=== PATIENT | female | born 1940 | race Caucasian/White ===

== ENCOUNTER → 2016-07-01 | Outpatient (CLI) | payer BC ==
[~2016-07-01] MED LIST: ADVIN25050 INH; ALBUAER2 INH; ANT25 PO; ASPI81TA25 PO; ASTNS; ATOR10TA82 PO; CRAN500C2 PO; ISOS30TA3 PO; LORA10CA2 PO; NRN600 PO; PRLSR20 PO; SERT-234 PO; TELM40TA11 PO; TOLT4CAP PO; VERA240T20 PO
== END | disposition home or self-care (01) ==
LOC: C.LAB 13:01
PROVIDERS: ATTEND Nurse Practitioner Family
DX: N20.0 Calculus of kidney (principal); R32 Unspecified urinary incontinence

== ENCOUNTER → 2016-08-04 | Outpatient (CLI) | payer BC ==
[2016-08-04 16:05] LABS: CALCIUM 9.3 mg/dl (8.5-10.1)
[2016-08-04 16:12] LABS: ALT/SGPT 15 U/L (12-78); BLOOD UREA NITROGEN 12 mg/dl (7-18); BUN/CREATININE RATIO 14.1 (10-20); CARBON DIOXIDE 25 mmol/L (21-32); CHLORIDE 107 mmol/L (98-107); CHOLESTEROL 219 mg/dl (0-200); CREATININE 0.86 mg/dl (0.60-1.20); GLUCOSE 88 mg/dl (70-99); SODIUM 141 mmol/L (136-145); TRIGLYCERIDES 202 mg/dl (0-150); VERY LOW DENSITY LIPOPROT CALC 40 mg/dl
[2016-08-04 16:22] LABS: ALKALINE PHOSPHATASE 86 U/L (45-117); AST/SGOT 15 U/L (15-37); CHOLESTEROL/HDL RATIO 4.1; HDL CHOLESTEROL 54 mg/dl; LDL CHOLESTEROL CALCULATED 125 mg/dl
== END | disposition home or self-care (01) ==
LOC: C.LAB1850 14:20
PROVIDERS: ATTEND Internal Medicine
DX: E78.00 Pure hypercholesterolemia, unspecified (principal); E53.8 Deficiency of other specified B group vitamins; E55.9 Vitamin D deficiency, unspecified; R53.83 Other fatigue

== ENCOUNTER → 2016-11-08 | Outpatient (CLI) | payer BC ==
[~2016-11-08] MED LIST changes: -ATOR10TA82 PO; +ATOR10TA88 PO
--- NOTE | 2016-11-08 15:51 | DIAGNOSTIC IMAGING REPORT ---
KUB CLINICAL HISTORY: R39.15 Urinary [id number] History of urinary tract infection pain. Infection. COMPARISON STUDY: 12/23/2015 FINDINGS: The soft tissues, psoas shadows, renal outlines and intestinal gas pattern appear normal. There is no evidence for bowel obstruction. No abnormal abdominal calcifications are seen. No evidence for nephrocalcinosis. IMPRESSION: Normal study. No evidence for nephrocalcinosis. The above report was generated using voice recognition software. It may contain grammatical, syntax or spelling errors. Electronically signed by: Chivo Wu M.D. 11/08/2016 3:50 PM Dictated Date/Time: 11/08/2016 3:49 PM
== END | disposition home or self-care (01) ==
LOC: C.RAD 15:13
PROVIDERS: ATTEND Urology
DX: R39.15 Urgency of urination (principal); Z87.440 Personal history of urinary (tract) infections

== ENCOUNTER → 2017-02-28 | Outpatient (CLI) | payer BC ==
[~2017-02-28] MED LIST changes: +ATOR10TA82 PO; -ATOR10TA88 PO
[2017-02-28 13:02] LABS: ALT/SGPT 16 U/L (12-78); AST/SGOT 9 U/L (15-37); BLOOD UREA NITROGEN 11 mg/dl (7-18); BUN/CREATININE RATIO 10.4 (10-20); CALCIUM 9.1 mg/dl (8.5-10.1); CARBON DIOXIDE 26 mmol/L (21-32); CHLORIDE 105 mmol/L (98-107); CREATININE 1.09 mg/dl (0.60-1.20); GLUCOSE 100 mg/dl (70-99); POTASSIUM 3.9 mmol/L (3.5-5.1); SODIUM 140 mmol/L (136-145)
[2017-02-28 13:04] LABS: ALB/GLOB RATIO 1.2 (0.9-2); ALKALINE PHOSPHATASE 90 U/L (45-117)
== END | disposition home or self-care (01) ==
LOC: C.LAB1850 11:01
PROVIDERS: ATTEND Internal Medicine
DX: E53.8 Deficiency of other specified B group vitamins (principal); E55.9 Vitamin D deficiency, unspecified; I10 Essential (primary) hypertension

== ENCOUNTER → 2017-08-09 | Outpatient (CLI) | payer BC ==
--- NOTE | 2017-08-09 15:52 | DIAGNOSTIC IMAGING REPORT ---
RIGHT SHOULDER 3 VIEWS HISTORY: Right shoulder pain. COMPARISON: None. FINDINGS: There is no fracture or dislocation. Soft tissues are unremarkable. The bones are osteopenic. The right clavicle appears intact. IMPRESSION: No fracture or dislocation within the right shoulder. Electronically signed by: Eliezer Sinha M.D. 08/09/2017 3:50 PM Dictated Date/Time: 08/09/2017 3:49 PM
--- NOTE | 2017-08-09 15:53 | DIAGNOSTIC IMAGING REPORT ---
R ELBOW MIN 3 VIEWS ROUTINE CLINICAL HISTORY: 77 years-old Female presenting with Joint pain, elbow right, fall last night, now with right shoulder and elbow pain. TECHNIQUE: Frontal, oblique, and lateral views of the right elbow were obtained. COMPARISON: None. FINDINGS: Osteopenia suspected. This limits evaluation for nondisplaced fracture Elbow joint congruent. Minimal osteophytosis noted at the medial aspect of the coronoid process. The joint spaces preserved. No acute fracture or malalignment. No advanced degenerative change. No evidence of elbow joint effusion. IMPRESSION: 1. No acute osseous injury. 2. Minimal degenerative changes. Electronically signed by: Julio Suárez M.D. 08/09/2017 3:52 PM Dictated Date/Time: 08/09/2017 3:50 PM
== END | disposition home or self-care (01) ==
LOC: C.RAD 15:10
PROVIDERS: ATTEND Internal Medicine
DX: M25.511 Pain in right shoulder (principal); M25.521 Pain in right elbow

== ENCOUNTER → 2017-10-26 | Outpatient (CLI) | payer BC ==
[2017-10-26 13:31] LABS: BASO % 0.2 %; BASO ABS # 0.01 K/uL (0-0.2); EOS % 1.8 %; HEMATOCRIT 44.1 % (37-47); HEMOGLOBIN 14.5 g/dL (12.0-16.0); LYMPH % 28.6 %; LYMPH ABS # 1.59 K/uL (1.2-3.4); MEAN CELL VOLUME 91.9 fL (80-100); MEAN CORPUSCULAR HEMOGLOBIN 30.2 pg (25-34); MEAN CORPUSCULAR HGB CONC 32.9 g/dl (32-36); MEAN PLATELET VOLUME 10.4 fL (7.4-10.4); MONO % 7.4 %; MONO ABS # 0.41 K/uL (0.11-0.59); NEUT ABS # 3.45 K/uL (1.4-6.5); PLATELET COUNT 188 K/uL (130-400); RED CELL DISTRIBUTION WIDTH CV 13.4 % (11.5-14.5); RED CELL DISTRIBUTION WIDTH SD 44.8 fL (36.4-46.3); WHITE BLOOD COUNT 5.56 K/uL (4.8-10.8)
[2017-10-26 13:43] LABS: ALBUMIN 3.7 gm/dl (3.4-5.0); ALKALINE PHOSPHATASE 83 U/L (45-117); ALT/SGPT 14 U/L (12-78); AST/SGOT 10 U/L (15-37); BLOOD UREA NITROGEN 15 mg/dl (7-18); CALCIUM 8.9 mg/dl (8.5-10.1); CARBON DIOXIDE 27 mmol/L (21-32); CHOLESTEROL 170 mg/dl (0-200); CREATININE 0.97 mg/dl (0.60-1.20); GLUCOSE 103 mg/dl (70-99); LDL CHOLESTEROL CALCULATED 82 mg/dl; POTASSIUM 3.9 mmol/L (3.5-5.1); SODIUM 141 mmol/L (136-145); TOTAL PROTEIN 7.3 gm/dl (6.4-8.2)
== END | disposition home or self-care (01) ==
LOC: C.LAB1850 11:36
PROVIDERS: ATTEND Internal Medicine Cardiovascular Disease
DX: R73.01 Impaired fasting glucose (principal); I10 Essential (primary) hypertension; E78.00 Pure hypercholesterolemia, unspecified; I69.959 Hemiplegia and hemiparesis following unspecified cerebrovascular disease affecting unspecified side; I25.10 Atherosclerotic heart disease of native coronary artery without angina pectoris

== ENCOUNTER 2023-05-21 15:19 | Inpatient (IN) ==
--- NOTE | 2023-05-21 15:51 | Emergency Department Note ---
History of Present Illness General Chief complaint: Fall Stated complaint: FALL, HIT HEAD, RIGHT ANKLE INJURY Time Seen by Provider: 05/21/23 15:45 History of Present Illness Maximum Pain Intensity: 8 NAME: ESPERANZA NICOLE AGE: 82 SEX: F : 1940 ARRIVES VIA: Walk-In INFORMANT: Patient ED PROVIDER(S): PAOLO Ramirez, Janae Romero MD The patient is an 82-year-old female who arrives to the emergency department for evaluation of right ankle pain, headache, and right-sided cervical paraspinal muscle pain after a mechanical fall while she was attempting to come out of the bathroom. She reports she was reaching for her walker at the time when she fell down to the ground hitting her head landing on her right knee and twisting her right ankle. The patient does have a history of a previous CVA with a right- sided deficit. She reports no loss of consciousness, no use of anticoagulants, however she is reporting a headache. She denies any worsening of her current vision, dizziness, chest pain, shortness of breath, or other concerning neurological symptoms. Home Medications Medication Instructions Recorded Confirmed Type aspirin 81 mg tablet 81 mg PO DAILY 11/21/18 05/21/23 History coenzyme Q10 100 mg capsule 100 mg PO DAILY 11/21/18 05/21/23 History cranberry extract 500 mg capsule 500 mg PO DAILY 11/21/18 05/21/23 History (Cranberry Concentrate) cyanocobalamin (vitamin B-12) 1,000 mcg PO DAILY 11/21/18 05/21/23 History 1,000 mcg tablet docusate sodium 100 mg capsule 100 mg PO DAILY 11/21/18 05/21/23 History loratadine 10 mg tablet 10 mg PO DAILY 11/21/18 05/21/23 History nitroglycerin 0.4 mg sublingual 0.4 mg sublingual Q5M PRN Chest 11/21/18 05/21/23 History tablet Pain #15 tabs sennosides 8.6 mg tablet 8.6 mg PO DAILY PRN Constipation 11/21/18 05/21/23 History azelastine 137 mcg (0.1 %) nasal 2 spray intranasal BID 10/26/21 05/21/23 History spray aerosol fluticasone 250 mcg-salmeterol 50 1 inh inhalation BID PRN .asthma 11/05/21 05/21/23 History mcg/dose blistr powdr for inhalation cholecalciferol (vitamin D3) 25 1,000 unit PO DAILY #90 caps 04/13/22 05/21/23 Rx mcg (1,000 unit) capsule albuterol sulfate 90 mcg/actuation 2 puff inhalation Q4H PRN 05/30/22 05/21/23 Rx aerosol inhaler Shortness Of Breath Or Wheezing #3 Inhalers omeprazole 40 mg capsule,delayed 40 mg PO DAILY #90 caps 09/27/22 05/21/23 Rx release famotidine 40 mg tablet 40 mg PO DAILY #90 tabs 01/16/23 05/21/23 Rx memantine 10 mg tablet 10 mg PO BID #180 tabs 01/17/23 05/21/23 Rx rimegepant 75 mg disintegrating 75 mg PO Q OTHER DAY migraine 04/21/23 05/21/23 Rx tablet (Nurtec ODT) headache #16 tabs atorvastatin 10 mg tablet 10 mg PO .COMPLEX #45 tabs 05/17/23 05/21/23 Rx oxybutynin chloride 5 mg tablet 5 mg PO DAILY #90 tabs 05/17/23 05/21/23 Rx tolterodine 4 mg capsule,extended 4 mg PO DAILY #90 caps 05/17/23 05/21/23 Rx release 24 hr isosorbide mononitrate 30 mg 30 mg PO DAILY 05/21/23 05/21/23 History tablet,extended release 24 hr venlafaxine 75 mg capsule,extended 150 mg PO HS 05/21/23 05/21/23 History release 24 hr verapamil 240 mg tablet,extended 240 mg PO HS 05/21/23 05/21/23 History release Allergies Allergy/AdvReac Type Severity Reaction Status Date / Time nitrofurantoin Allergy Mild RASH Verified 05/21/23 22:23 acetaminophen [From Vicodin] Allergy shortness Verified 05/21/23 22:23 of breath fesoterodine [From Toviaz] Allergy difficult Verified 05/21/23 22:23 swallowing; dry mouth; loss of appetite hydrocodone [From Vicodin] Allergy shortness Verified 05/21/23 22:23 of breath mirabegron [From Myrbetriq] Allergy Hypertensio Verified 05/21/23 22:23 n NSAIDS (Non-Steroidal Allergy Unknown Verified 05/21/23 22:23 Anti-Inflamma onabotulinumtoxinA Allergy Unconscious Verified 05/21/23 22:23 [From Botox] simvastatin [From Zocor] Allergy Muscle Pain Verified 05/21/23 22:23 topiramate [From Topamax] Allergy dyspepsia Verified 05/21/23 22:23 erenumab-aooe AdvReac Intermediate CONSTIPATIO Verified 05/21/23 22:23 [From Aimovig Autoinjector] N meperidine AdvReac Mild NAUSEA Verified 05/17/23 13:34 Past Med/Surg History Medical History Left flank pain Gross hematuria Contracture, right ankle Right ankle gives out Migraine with aura and without status migrainosus, not intractable Compression fracture of L2 Dependent edema Head trauma Nephrolithiasis Osteopenia Recurrent UTI (urinary tract infection) Right shoulder pain Antiplatelet or antithrombotic long-term use Cough Arteriosclerotic heart disease (ASHD) Depression GERD without esophagitis Lumbar radiculopathy Other insomnia Vitamin D deficiency CVA, old, hemiparesis Asthma Dyslipidemia Sepsis Nonspecific ST-T wave electrocardiographic changes (02/18/13) Hypophosphatemia Hypomagnesemia Hypokalemia Surgical History S/P cholecystectomy Family History Family/Other Diabetes Heart disease Hypertension Sister Diabetes Brother Diabetes Myocardial infarction Uncle Colorectal cancer Denies family history of Ovarian cancer Prostate cancer Breast cancer Social History Smoking Status: Former smoker Second Hand Exposure: Yes; Do You Dip or Chew Tobacco: No; Hx Alcohol Use: No Hx Substance Use: No Preferred Language: Kyrgyz Communication Ability: Effective Visual Impairment: No Limitations Hearing Ability: Use of Hearing Aid Retort Pre Cooker Required: No Beliefs That Will Affect Care: None marital status: Current Living Situation: Spouse Current Living Situation Comment: with , George current occupational status: disabled Feels Safe at Home: Yes Safety Concerns: Feels Safe At This Time Childhood Exposure to Second-Hand Smoke: Yes Dental Care, Regularly: No Physical Activity Frequency: Does not Exercise Seatbelt Use: always Sunscreen Use: No Assistive Devices: Denture - Upper, Denture - Lower, Glasses, Hearing Aid - Bilateral, Scooter/Electric Scooter, Walker and Wheelchair Assistive Devices Comment: glasses at bedside, all other assistive devices at home Physical Exam Vital Signs Vital Signs - 24 hr 05/21/23 15:31 05/21/23 18:38 Temperature 36.4 C L Temperature Source Temporal Artery Scan Pulse Rate 73 Pulse Rate [Finger] 59 L Respiratory Rate 20 18 Respiratory Effort / Characteristics Non-Labored Respiratory Depth Normal Blood Pressure 142/79 H Blood Pressure [Left Arm] 187/71 H Blood Pressure Mean 100 Blood Pressure Mean [Left Arm] 109 Pulse Oximetry 96 95 Oxygen Delivery Method Room Air Room Air Sepsis Recent Fever Within 48 Hours No Sepsis New/Unexplained Change in Mental Status No Sepsis Action Taken by Nursing No Action Required VITALS: Vitals are noted on the nurse's note and reviewed by myself. Vital signs stable. GENERAL: 82-year-old female, in no acute distress, nondiaphoretic. SKIN: The skin was without rashes, erythema, edema, or bruising. HEAD: Normocephalic atraumatic. EARS: External auditory canals clear, tympanic membranes pearly evangelista without erythema or effusion bilaterally. EYES: Pupils equal round and reactive to light and accommodation. Conjunctivae without injection, sclerae without icterus. Extraocular movements intact. NECK: Supple without nuchal rigidity. No lymphadenopathy. No thyromegaly. Cervical paraspinal muscle tenderness on the right. No JVD. HEART: Regular rate and rhythm without murmurs gallops or rubs. LUNGS: Clear to auscultation bilaterally without wheezes, rales or rhonchi. No retractions or accessory muscle use. ABDOMEN: Positive bowel sounds x 4. Soft, nontender, without masses or organomegaly. Vogel sign negative. No guarding or rebound tenderness. MUSCULOSKELETAL: Patient uses a walker at baseline, atrophy to the right lower extremity due to left-sided CVA. Strength 3/5 right leg, limited range of motion. NEURO: Patient was alert and oriented to person place and time. Course Administered Medications Aspirin (Aspirin 81 Mg Ectab) 81 mg PO DAILY SUBHA Stop: 06/21/23 08:59 Last Admin: 05/22/23 07:49 Dose: 81 mg Documented By: ES Atorvastatin Calcium (Atorvastatin 10 Mg Tab) 10 mg PO Q48H SUBHA Stop: 06/21/23 08:59 Last Admin: 05/22/23 07:50 Dose: 10 mg Documented By: ES Fluticasone/Vilanterol (Fluticasone/Vilanterol 200/25mcg 14 Puffs/Inhaler) 1 puffs INH DAILY SUBHA Stop: 06/21/23 08:59 Last Admin: 05/22/23 07:49 Dose: 1 puffs Documented By: ES Isosorbide Mononitrate (Isosorbide [place]orte Extended Rel 30 Mg Tabcr) 30 mg PO QAM SUBHA Stop: 06/21/23 08:59 Last Admin: 05/22/23 07:49 Dose: 30 mg Documented By: JER Memantine (Memantine Hcl 10 Mg Tab) 10 mg PO BID SUBHA Stop: 06/20/23 22:28 Last Admin: 05/22/23 07:50 Dose: 10 mg Documented By: Admin: 05/22/23 00:22 Dose: 10 mg Documented By: GEO Oxybutynin Chloride (Oxybutynin Chloride 5 Mg Tab) 5 mg PO DAILY SUBHA Stop: 06/21/23 08:59 Last Admin: 05/22/23 07:50 Dose: 5 mg Documented By: JER Pantoprazole Sodium (Pantoprazole 40 Mg Tab) 40 mg PO DAILY SUBHA Stop: 06/21/23 08:59 Last Admin: 05/22/23 07:50 Dose: 40 mg Documented By: JER Venlafaxine HCl (Venlafaxine Hcl Xr 150 Mg Capxr) 150 mg PO DAILY SUBHA Stop: 06/21/23 08:59 Last Admin: 05/22/23 07:49 Dose: 150 mg Documented By: JER Discontinued Medications Amlodipine Besylate (Amlodipine Besylate 5 Mg Tab) 5 mg PO NOW STA Stop: 05/21/23 22:30 Last Admin: 05/21/23 23:32 Dose: 5 mg Documented By: WALTER Clonidine HCl (Clonidine Hcl 0.1 Mg Tab) 0.1 mg PO NOW ONE Stop: 05/22/23 02:55 Last Admin: 05/22/23 03:02 Dose: 0.1 mg Documented By: GEO Hydralazine HCl (Hydralazine Hcl 20 Mg/Ml Vial) 2.5 mg IV NOW ONE Stop: 05/21/23 21:58 Last Admin: 05/21/23 22:13 Dose: 2.5 mg Documented By: HUNTER Hydralazine HCl (Hydralazine Hcl 20 Mg/Ml Vial) 2.5 mg IV NOW STA Stop: 05/21/23 22:08 Last Admin: 05/21/23 22:16 Dose: 2.5 mg Documented By: HUNTER Hydralazine HCl (Hydralazine Hcl 20 Mg/Ml Vial) 5 mg IV NOW ONE Stop: 05/21/23 22:36 Last Increment: 05/21/23 22:54 Dose: 0.25 mg Documented By: HUNTER Hydralazine HCl (Hydralazine Hcl 20 Mg/Ml Vial) 5 mg IV NOW ONE Stop: 05/22/23 01:12 Last Admin: 05/22/23 01:22 Dose: Not Given Documented By: GEO Hydralazine HCl (Hydralazine Hcl 20 Mg/Ml Vial) 10 mg IV NOW ONE Stop: 05/22/23 01:12 Last Admin: 05/22/23 01:24 Dose: 10 mg Documented By: GEO Acetaminophen (Ofirmev) 1,000 mg in 100 mls @ 400 mls/hr IV NOW STA Stop: 05/22/23 01:26 Last Infusion: 05/22/23 02:17 Dose: Infused Documented By: Admin: 05/22/23 01:24 Dose: 400 mls/hr Documented By: GEO Isosorbide Mononitrate (Isosorbide [place] Extended Rel 30 Mg Tabcr) 30 mg PO NOW ONE Stop: 05/22/23 01:49 Last Admin: 05/22/23 02:16 Dose: 30 mg Documented By: GEO Miscellaneous (Patient's Height &/Or Weight Needed) 1 each N/A NOW ONE Stop: 05/22/23 01:31 Last Admin: 05/22/23 01:36 Dose: 1 each Documented By: GEO Medical Decision Making Differential Diagnosis Concussion, contusion, fracture, subdural hematoma, epidural hematoma, intraparenchymal hemorrhage, as well as other pathologies. Medical Records Attestation: I reviewed the patient's medical records. Home Medications Current Medication List: was personally reviewed by me Laboratory Data 05/22/23 04:03 05/22/23 04:03 Lab Results 05/21/23 Range/Units 19:00 WBC 7.10 (4.8-10.8) K/ul RBC 4.43 (4.20-5.40) M/uL Hgb 12.9 (12.0-16.0) g/dl Hct 41.0 (37.0-47.0) % MCV 92.6 (80.0-100.0) fL MCH 29.1 (25.0-34.0) pg MCHC 31.5 L (32.0-36.0) g/dL RDW Std Deviation 47.4 H (36.4-46.3) fL RDW Coeff of Layton 13.8 (11.5-14.5) % Plt Count 193 (130-400) K/uL MPV 9.4 (9.4-12.4) fL Immature Gran % (Auto) 0.3 % Neut % (Auto) 73.1 % Lymph % (Auto) 17.0 % Laporte % (Auto) 8.2 % Eos % (Auto) 1.1 % Baso % (Auto) 0.3 % Neut # (Auto) 5.19 (1.40-6.50) K/uL Lymph # (Auto) 1.21 (1.20-3.40) K/uL Laporte # (Auto) 0.58 (0.11-0.59) K/uL Eos # (Auto) 0.08 (0.00-0.50) K/uL Baso # (Auto) 0.02 (0.00-0.20) K/uL Immature Gran # (Auto) 0.02 (0.01-0.20) K/uL Sodium 141 (136-145) mmol/L Potassium 4.9 (3.5-5.1) mmol/L Chloride 107 (98-107) mmol/L Carbon Dioxide 29 (21-32) mmol/L Anion Gap 5 (3-11) BUN 19 (6-23) mg/dl Creatinine 1.10 (0.6-1.2) mg/dl Est Cr Clr Drug Dosing Not Reportable Est GFR ( Amer) 54.9 ml/min Est GFR (Non-Af Amer) 47.4 ml/min BUN/Creatinine Ratio 17.3 (10-20) Glucose 102 H (70-99(Fasting)) mg/dl Calcium 9.2 (8.6-10.3) mg/dl Total Bilirubin 0.5 (0.2-1.0) mg/dl AST 15 (13-39) U/L ALT 6 L (7-52) U/L Alkaline Phosphatase 70 (34-104) U/L Total Protein 6.9 (6.0-8.3) gm/dl Albumin 3.8 (3.4-5.0) gm/dl Globulin 3.1 (2.5-4.0) gm/dl Albumin/Globulin Ratio 1.2 (0.9-2) Imaging Data Attestation: I personally reviewed and interpreted this imaging study as follows: My Impression: Initial x-ray interpretation per myself shows no acute injury, fracture, or subluxation. Will await formal radiology report. Radiologist's Impression: Ankle X-Ray 05/21/23 16:15 XR ankle RT min 3V routine CLINICAL HISTORY: fall COMPARISON: Right ankle radiographs July 10, 2020. FINDINGS: There is no fracture within the right ankle. Posterior calcaneal spurring is incidentally noted. Small bony excrescence arising from the medial metaphysis of the right fibula is unchanged since prior exam. This is benign. Talar dome is intact. IMPRESSION: No fracture or dislocation within the right ankle. ACT 112: Negative or not required by law. Electronically signed by: Wyatt Jiang M.D. 05/21/2023 4:[address] 05/21/23 16:15 CT OF THE CERVICAL SPINE WITHOUT CONTRAST CLINICAL HISTORY: fall COMPARISON STUDY: Cervical spine CT October 26, 2021. TECHNIQUE: Helical axial images of the cervical spine were obtained without IV contrast. Sagittal and coronal reconstructions were viewed. Automated exposure control was utilized for the study. A dose lowering technique was utilized adhering to the principles of ALARA. FINDINGS: Alignment of the cervical spine is anatomic. Vertebral body heights are maintained. No acute cervical spine fracture or subluxation is present. There is no prevertebral edema. Facet joints are intact. IMPRESSION: No acute cervical spine fracture or subluxation. ACT 112: Negative or not required by law. Electronically signed by: Wyatt Jiang M.D. 05/21/2023 5:[address] 05/21/23 16:15 CT OF THE HEAD WITHOUT CONTRAST CLINICAL HISTORY: fall COMPARISON STUDY: Head CT October 26, 2021. MRI of the brain June 03, 2022. CT DOSE: 1031.76 mGy.cm TECHNIQUE: Helical axial images of the head were obtained without IV contrast. Automated exposure control was utilized for the study. A dose lowering technique was utilized adhering to the principles of ALARA. FINDINGS: No acute intracranial hemorrhage, midline shift or mass effect is present. The ventricular system is stable. Ventricular dilatation is unchanged. Left frontal lobe encephalomalacia is unchanged. White matter hypodensities are similar to prior exam. The basal cisterns are patent. No extra-axial collections are present. There are no findings to suggest acute dural sinus thrombosis or acute territorial infarct. No significant calvarial abnormalities are present. Visualized portions of the sinuses and mastoid air cells are clear. Old right nasal bone fracture is unchanged. IMPRESSION: 1. No acute intracranial findings. No change in appearance of the brain. 2. No calvarial fractures. ACT 112: Negative or not required by law. Electronically signed by: Wyatt Jiang M.D. 05/21/2023 5:06 PM Knee X-Ray 05/21/23 16:15 XR knee RT 3V CLINICAL HISTORY: fall COMPARISON: None FINDINGS: Alignment of the right knee is anatomic. There is no acute fracture. No joint effusion is present. Minimal superior patellar spurring. The joint spaces are preserved. IMPRESSION: No fractures. No evidence for a right knee joint effusion. ACT 112: Negative or not required by law. Electronically signed by: Wyatt Jiang M.D. 05/21/2023 4:35 PM Head Trauma GCS Score: 15 MDM Narrative The patient is an 82-year-old female who arrives to the emergency department with her for the above-stated complaint. Upon examination the patient was eliciting pain in the right ankle, and reporting weakness. She states she also was having right cervical paraspinal muscle tenderness to palpation. X-ray imaging was obtained of the ankle, and the knee, which was negative for acute injury. The patient did have a head strike, therefore CT imaging was indicated. CT imaging shows no acute ICH, fracture, subluxation. An ambulatory trial was attempted at bedside using a walker, which was unsuccessful. The patient reports she had a very difficult time attempting to ambulate due to her right ankle continuing to "roll." At this time based on the patient's inability to ambulate at her baseline level, I contacted case management to start the admission process. The patient would require admission for observation, PT, OT evaluation, and potential discharge to a senior living facility. The case was discussed with Dr. Costa, who at that time took over care of the patient. The patient's case was discussed with Dr. Romero, who agreed with my evaluation and treatment plan. Impression & Plan Fall, Ambulatory dysfunction Discharge Plan Visit Data Chief Complaint: Fall Stated Complaint: FALL, HIT HEAD, RIGHT ANKLE INJURY ED Provider: Janae Romero ED Midlevel Provider: Donna Fairbanks Discharge Problem: Fall, Ambulatory dysfunction Patient Disposition: Admitted As Inpatient Discharge Instructions Interventions: ED Discharge Assessment Last Done: 05/22/23 00:51 Discharge Problem: Fall Qualifiers: Encounter type: initial encounter Qualified Code(s): W19.XXXA - Unspecified fall, initial encounter
--- NOTE | 2023-05-21 16:36 | XRay Report ---
XR ankle RT min 3V routine CLINICAL HISTORY: fall COMPARISON: Right ankle radiographs July 10, 2020. FINDINGS: There is no fracture within the right ankle. Posterior calcaneal spurring is incidentally noted. Small bony excrescence arising from the medial metaphysis of the right fibula is unchanged sin ce prior exam. This is benign. Talar dome is intact. IMPRESSION: No fracture or dislocation within the right ankle. ACT 112: Negative or not required by law. Electronically signed by: Wyatt Jiang M.D. 05/21/2023 4:35 PM
--- NOTE | 2023-05-21 16:36 | XRay Report ---
XR knee RT 3V CLINICAL HISTORY: fall COMPARISON: None FINDINGS: Alignment of the right knee is anatomic. There is no acute fracture. No joint effusion is present. Minimal superior patellar spurring. The joint spaces are preserved. IMPRESSION: No fractures. No evidence for a right knee joint effusion. ACT 112: Negative or not required by law. Electronically signed by: Wyatt Jiang M.D. 05/21/2023 4:35 PM
--- NOTE | 2023-05-21 17:07 | CT Scan Report ---
CT OF THE HEAD WITHOUT CONTRAST CLINICAL HISTORY: fall COMPARISON STUDY: Head CT October 26, 2021. MRI of the brain June 03, 2022. CT DOSE: 1031.76 mGy.cm TECHNIQUE: Helical axial images of the head were obtained without IV contrast. Automated exposure con trol was utilized for the study. A dose lowering technique was utilized adhering to the principles o f ALARA. FINDINGS: No acute intracranial hemorrhage, midline shift or mass effect is present. The ventricular system is stable. Ventricular dilatation is unchanged. Left frontal lobe encephalomalacia is unchange d. White matter hypodensities are similar to prior exam. The basal cisterns are patent. No extra-axia l collections are present. There are no findings to suggest acute dural sinus thrombosis or acute ter ritorial infarct. No significant calvarial abnormalities are present. Visualized portions of the sinu ses and mastoid air cells are clear. Old right nasal bone fracture is unchanged. IMPRESSION: 1. No acute intracranial findings. No change in appearance of the brain. 2. No calvarial fractures. ACT 112: Negative or not required by law. Electronically signed by: Wyatt Jiang M.D. 05/21/2023 5:06 PM
--- NOTE | 2023-05-21 17:10 | CT Scan Report ---
CT OF THE CERVICAL SPINE WITHOUT CONTRAST CLINICAL HISTORY: fall COMPARISON STUDY: Cervical spine CT October 26, 2021. TECHNIQUE: Helical axial images of the cervical spine were obtained without IV contrast. Sagittal a nd coronal reconstructions were viewed. Automated exposure control was utilized for the study. A do se lowering technique was utilized adhering to the principles of ALARA. FINDINGS: Alignment of the cervical spine is anatomic. Vertebral body heights are maintained. No acut e cervical spine fracture or subluxation is present. There is no prevertebral edema. Facet joints are intact. IMPRESSION: No acute cervical spine fracture or subluxation. ACT 112: Negative or not required by law. Electronically signed by: Wyatt Jiang M.D. 05/21/2023 5:08 PM
--- NOTE | 2023-05-21 17:20 | Emergency Department Note ---
ED Visit Note I was consulted by the Advanced Practice Provider, PAOLO Ramirez. I performed a substantive portion of the visit. This includes aspects of: History: Patient is an 82-year-old female presenting for right ankle pain, right-sided neck pain and headache after a fall. Patient was attempting to come out of the bathroom when she lost her footing with her walker and fell, hitting her right side. She did hit the right side of her head. Denies loss of consciousness. She is not on any anticoagulation. Denies any change in vision, numbness or tingling or weakness in her extremities MDM: - CT head wo contrast negative for acute intracranial pathology. X-ray of the right knee was negative for any acute fracture, per my interpretation - Patient failed ambulatory challenge. Laboratory workup was ordered. Will admit to hospitalist service for PT/OT assessment and potential placement. .
[2023-05-21 19:15] LABS: Basophils # (auto) 0.02 K/uL (0.00-0.20); Basophils % (auto) 0.3 %; Eosinophils # (auto) 0.08 K/uL (0.00-0.50); Eosinophils % (auto) 1.1 %; Hemoglobin 12.9 g/dl (12.0-16.0); Immature Granulocytes # (auto) 0.02 K/uL (0.01-0.20); Immature Granulocytes % (auto) 0.3 %; Lymphocytes # (auto) 1.21 K/uL (1.20-3.40); Mean Corpuscular Hemoglobin 29.1 pg (25.0-34.0); Mean Corpuscular Hgb Conc 31.5 g/dL (32.0-36.0); Mean Corpuscular Volume 92.6 fL (80.0-100.0); Mean Platelet Volume 9.4 fL (9.4-12.4); Monocytes # (auto) 0.58 K/uL (0.11-0.59); Monocytes % (auto) 8.2 %; Neutrophils # (auto) 5.19 K/uL (1.40-6.50); Neutrophils % (auto) 73.1 %; Platelet Count 193 K/uL (130-400); RDW Coefficient of Variation 13.8 % (11.5-14.5); RDW Standard Deviation 47.4 fL (36.4-46.3); Red Blood Count 4.43 M/uL (4.20-5.40)
[2023-05-21 19:32] LABS: Alanine Aminotransferase 6 U/L (7-52); Albumin Globulin Ratio 1.2 (0.9-2); Albumin Level 3.8 gm/dl (3.4-5.0); Alkaline Phosphatase 70 U/L (34-104); Anion Gap 5 (3-11); Aspartate Aminotransferase 15 U/L (13-39); BUN Creatinine Ratio 17.3 (10-20); Bilirubin,Total 0.5 mg/dl (0.2-1.0); Blood Urea Nitrogen 19 mg/dl (6-23); Calcium 9.2 mg/dl (8.6-10.3); Carbon Dioxide 29 mmol/L (21-32); Chloride 107 mmol/L (98-107); Est GFR (African American) 54.9 ml/min; Est GFR (Non-African American) 47.4 ml/min; Globulin 3.1 gm/dl (2.5-4.0); Glucose 102 mg/dl (70-99(Fasting)); Potassium 4.9 mmol/L (3.5-5.1); Sodium 141 mmol/L (136-145); Total Protein 6.9 gm/dl (6.0-8.3)
--- NOTE | 2023-05-21 19:43 | History & Physical Report ---
Date of Service May 21, 2023 Assessment & Plan (1) Fall: Plan: Mechanical fall, weakness - Fell reaching for her walker, no syncope/presyncope CThead: No acute findings, normal CTC-spine: No acute fracture or subluxation Ankle x-ray: No fracture or dislocation Knee x-ray: No acute fractures Also with R deficits due to prior CVA, R foot very difficulty to lift with drop and now with increased pain is recommended for PT/OT. Unable to be placed directed to [facility] from [facility] as required PT/OT evaluations while inpatient. Has been admitted for such (2) CVA, old, hemiparesis: Plan: History of CVA with right-sided deficits No acute new strokelike symptoms although patient with difficulty ambulating due to her residual deficits and soreness due to fall as noted above Continue aspirin, statin (3) COPD (chronic obstructive pulmonary disease): Plan: Lungs are clear, no acute exacerbation. Albuterol as needed, continue home inhaler (4) GERD without esophagitis: Plan: No symptoms at time of admission (5) Hypertension: Plan: Hypertension, no history of cardiac angina presumed underlying mild CAD Acute hypertension 187/71 in the setting of pain and falls. Continue isosorbide Defer metoprolol/labetalol/diltiazem due to bradycardia. Amlodipine x 1 given. If additional required given bradycardia would use a half dose of hydralazine, caution full dose due to risk of precipitous. Pain reasonably controlled at time of bedside recheck and remains hypertensive Asymptomatic at time of visit (6) Alzheimer's dementia: Plan: Dementia, history of hallucinations Mild Alzheimer's dementia patient remains oriented to name, place, and date and is intermittently forgetful but redirects easily with reasonably good memory High risk for delirium Can continue memantine, Effexor Delirium precautions History of Present Illness Primary Care Provider: Sreekanth Mclaughlin MD Sylvia is a 82-year-old old with a past medical history of asthma, CVA, CAD, compression fractures, COPD, cognitive and behavioral chain, hallucinations, and dementia who presents to the ER with R ankle pain, headache, R back pain after a fall when she tripped after going to the bathroom. She did strike her head and twisted her right leg, she is not on an anticoagulant. Sylvia seen at the bedside with her present. She reports that she was coming out of the bathroom when she rolled her ankle which caused her to trip and fall. She notes she has had problems with her right foot and her ankle rolls over very easily on that side since her stroke. She fell and did strike her head on the left side. Has some mild soreness different from her normal migraines because of this but overall feels better laying and resting in bed. No vision change. She has not had chest pressure or chest pain and no fevers chills or sweats. She has chronic right upper and right lower extremity weakness which is most pronounced in her right foot, her foot is more sore and swollen since she twisted it. She reports that her blood pressure is typically reasonably well-controlled used to be on additional blood pressure medications including hydrochlorothiazide but these were discontinued in the past as her blood pressure was doing reasonably well. No chest pain or chest pressure. Denies history of heart attacks. Denies chest pain with exertion. No dyspnea at time of assessment. Denies tobacco/alcohol/recreational substance use. DNR/DNI. Allergies Allergy/AdvReac Type Severity Reaction Status Date / Time nitrofurantoin Allergy Mild RASH Verified 05/17/23 13:34 acetaminophen [From Vicodin] Allergy shortness Verified 05/17/23 13:34 of breath fesoterodine [From Toviaz] Allergy difficult Verified 05/17/23 13:34 swallowing; dry mouth; loss of appetite hydrocodone [From Vicodin] Allergy shortness Verified 05/17/23 13:34 of breath mirabegron [From Myrbetriq] Allergy Hypertensio Verified 05/17/23 13:34 n NSAIDS (Non-Steroidal Allergy Unknown Verified 05/17/23 13:34 Anti-Inflamma onabotulinumtoxinA Allergy Unconscious Verified 05/17/23 13:34 [From Botox] simvastatin [From Zocor] Allergy Muscle Pain Verified 05/17/23 13:34 topiramate [From Topamax] Allergy dyspepsia Verified 05/17/23 13:34 erenumab-aooe AdvReac Intermediate CONSTIPATIO Verified 05/17/23 13:34 [From Aimovig Autoinjector] N meperidine AdvReac Mild NAUSEA Verified 05/17/23 13:34 Home Medications Medication Instructions Recorded Confirmed Type aspirin 81 mg tablet 81 mg PO DAILY 11/21/18 05/17/23 History coenzyme Q10 100 mg capsule 100 mg PO DAILY 11/21/18 05/17/23 History cranberry extract 500 mg capsule 500 mg PO DAILY 11/21/18 05/17/23 History (Cranberry Concentrate) cyanocobalamin (vitamin B-12) 1,000 mcg PO DAILY 11/21/18 05/17/23 History 1,000 mcg tablet docusate sodium 100 mg capsule 100 mg PO DAILY 11/21/18 05/17/23 History loratadine 10 mg tablet 10 mg PO DAILY 11/21/18 05/17/23 History nitroglycerin 0.4 mg sublingual 0.4 mg sublingual Q5M PRN Chest 11/21/18 05/17/23 History tablet Pain #15 tabs sennosides 8.6 mg tablet 8.6 mg PO DAILY PRN Constipation 11/21/18 05/17/23 History azelastine 137 mcg (0.1 %) nasal 2 spray intranasal BID 10/26/21 05/17/23 History spray aerosol fluticasone 250 mcg-salmeterol 50 See Rx Instructions .Route .COMPLEX 11/05/21 05/17/23 History mcg/dose blistr powdr for inhalation cholecalciferol (vitamin D3) 25 1,000 unit PO DAILY #90 caps 04/13/22 05/17/23 Rx mcg (1,000 unit) capsule albuterol sulfate 90 mcg/actuation 2 puff inhalation Q4H PRN 05/30/22 05/17/23 Rx aerosol inhaler Shortness Of Breath Or Wheezing #3 Inhalers verapamil 240 mg tablet,extended 240 mg PO DAILY #90 tabs 07/05/22 05/17/23 Rx release isosorbide mononitrate 30 mg See Rx Instructions .Route 07/20/22 05/17/23 Rx tablet,extended release 24 hr .COMPLEX #90 tabs omeprazole 40 mg capsule,delayed 40 mg PO DAILY #90 caps 09/27/22 05/17/23 Rx release venlafaxine 75 mg capsule,extended 150 mg (2 x 75 mg) PO DAILY #270 11/01/22 05/17/23 Rx release 24 hr caps famotidine 40 mg tablet 40 mg PO DAILY #90 tabs 01/16/23 05/17/23 Rx memantine 10 mg tablet 10 mg PO BID #180 tabs 01/17/23 05/17/23 Rx rimegepant 75 mg disintegrating 75 mg PO Q OTHER DAY migraine 04/21/23 05/17/23 Rx tablet (Nurtec ODT) headache #16 tabs atorvastatin 10 mg tablet 10 mg PO .COMPLEX #45 tabs 05/17/23 05/17/23 Rx oxybutynin chloride 5 mg tablet 5 mg PO DAILY #90 tabs 05/17/23 05/17/23 Rx tolterodine 4 mg capsule,extended 4 mg PO DAILY #90 caps 05/17/23 05/17/23 Rx release 24 hr Past Med/Surg History Medical History Left flank pain Gross hematuria Contracture, right ankle Right ankle gives out Migraine with aura and without status migrainosus, not intractable Compression fracture of L2 Dependent edema Head trauma Nephrolithiasis Osteopenia Recurrent UTI (urinary tract infection) Right shoulder pain Antiplatelet or antithrombotic long-term use Cough Arteriosclerotic heart disease (ASHD) Depression GERD without esophagitis Lumbar radiculopathy Other insomnia Vitamin D deficiency CVA, old, hemiparesis Asthma Dyslipidemia Sepsis Nonspecific ST-T wave electrocardiographic changes (02/18/13) Hypophosphatemia Hypomagnesemia Hypokalemia Surgical History S/P cholecystectomy Family History Family/Other Diabetes Heart disease Hypertension Sister Diabetes Brother Diabetes Myocardial infarction Uncle Colorectal cancer Denies family history of Ovarian cancer Prostate cancer Breast cancer Social History Smoking Status: Never smoker Second Hand Exposure: Yes; Do You Dip or Chew Tobacco: No; Hx Alcohol Use: No Hx Substance Use: No Preferred Language: Nicaraguan Visual Impairment: No Limitations Hearing Ability: Use of Hearing Aid marital status: Current Living Situation: Spouse current occupational status: disabled Feels Safe at Home: Yes Childhood Exposure to Second-Hand Smoke: Yes Dental Care, Regularly: No Physical Activity Frequency: Does not Exercise Seatbelt Use: always Sunscreen Use: No Physical Exam Physical Exam: General: A&Ox3. Intermittently forgetful but easily redirectable, no acute distress, cooperative HEENT: Atraumatic, normocephalic. Pupils equal and reactive to light and accommodation. No visual field cuts. Hearing grossly Pulm: CTAB A&P. -wheezes, -rales, -rhonchi. Symmetrical chest rise. No increased work of breathing. No respiratory distress. Cardiac: RRR, -mrg. Radial pulses intact and symmetrical. Abdominal: Nontender, nondistended, soft. BS present. Extremities: Sensation intact in hands and feet bilaterally. Hip flexion intact bilaterally, slightly limited by pain. Ankle dorsiflexion is near absent in the right foot. Plantarflexion 4/5 in the right foot. Dorsiflexion/plantarflexion brisk 5/5 in the left foot. 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, elbow flexion 4+/5 on the right, 5/5 on the left Results & Data Results & Data Vital Signs (Past 12 Hours) Vital Signs Temp Pulse Pulse Resp BP BP Pulse Ox 05/21/23 18:38 59 L 18 187/71 H 95 05/21/23 15:31 36.4 C L 73 20 142/79 H 96 O2 Del Method 05/21/23 18:38 Room Air 05/21/23 15:31 Room Air PG Care Time/CCT Total # of Minutes Spent Total Time Spent with Patient: Total time spent is greater than 50% in coordination of care (as documented) at patient's floor/unit and/or counseling patient: Coding Level of Care Code 43223 INT INP/OBS CARE 2/55MIN Diagnoses Fall W19.XXXA CVA, old, hemiparesis I69.359 COPD (chronic obstructive pulmonary disease) J44.9 GERD without esophagitis K21.9 Hypertension I10 Alzheimer's dementia G30.9; F02.80
[2023-05-21] MEDS: hydrALAZINE HCL 20 MG/ML VIAL IV ONE ×2 (22:03→22:54)
[2023-05-21] MEDS: hydrALAZINE HCL 20 MG/ML VIAL IV STA (22:16)
[2023-05-21] MEDS ORDERED: ALBUTEROL HFA 8 GM INHALER INH PRN (22:29)
[2023-05-21] MEDS: amLODIPine BESYLATE 5 MG TAB PO STA (23:32)
[2023-05-22] MEDS: MEMANTINE HCL 10 MG TAB PO SCH (00:22)
[2023-05-22] MEDS: hydrALAZINE HCL 20 MG/ML VIAL IV ONE ×2 (01:22→01:24)
[2023-05-22] MEDS: ACETAMINOPHEN 1,000 MG/100 ML VIAL IV STA (01:24)
[2023-05-22] MEDS: Patient's HEIGHT &/or WEIGHT Needed ONE (01:36)
[2023-05-22] MEDS: ISOSORBIDE MONO EXTENDED REL 30 MG TABCR PO ONE (02:16)
[2023-05-22] MEDS: cloNIDine HCL 0.1 MG TAB PO ONE ×2 (03:02→23:23)
[2023-05-22 04:16] LABS: Basophils # (auto) 0.02 K/uL (0.00-0.20); Basophils % (auto) 0.2 %; Eosinophils # (auto) 0.06 K/uL (0.00-0.50); Eosinophils % (auto) 0.7 %; Hematocrit (blood only) 37.7 % (37.0-47.0); Hemoglobin 12.5 g/dl (12.0-16.0); Immature Granulocytes # (auto) 0.02 K/uL (0.01-0.20); Immature Granulocytes % (auto) 0.2 %; Lymphocytes # (auto) 1.13 K/uL (1.20-3.40); Lymphocytes % (auto) 13.2 %; Mean Corpuscular Hemoglobin 29.5 pg (25.0-34.0); Mean Corpuscular Hgb Conc 33.2 g/dL (32.0-36.0); Mean Corpuscular Volume 88.9 fL (80.0-100.0); Mean Platelet Volume 9.3 fL (9.4-12.4); Monocytes # (auto) 0.57 K/uL (0.11-0.59); Monocytes % (auto) 6.7 %; Neutrophils # (auto) 6.77 K/uL (1.40-6.50); Platelet Count 182 K/uL (130-400); RDW Coefficient of Variation 14.1 % (11.5-14.5); Red Blood Count 4.24 M/uL (4.20-5.40); White Blood Count 8.57 K/ul (4.8-10.8)
--- NOTE | 2023-05-22 04:18 | Communication Note ---
Date of Service: May 22, 2023 Called by nursing to bedside regarding patient's elevated blood pressure. Systolically in the 220s. She is also complaining of having a headache. -Reviewed admission note regarding hypertension, initially started with 5 mg hydralazine, given 3 times, this only slightly improved her blood pressure and she continues to have a headache. Given additional 10 mg of hydralazine. Still symptomatic and elevated blood pressure. -Patient request Tylenol, instructed the patient that the headache is most likely result of her blood pressure. She still would like to try Tylenol. Given 1g of IV Tylenol. -Gave patient her home isosorbide and clonidine 0.1 mg. Slight improvement in blood pressure to 186/68. Went to bedside and patient was sleeping comfortable. -Will hold off on further treatment at this time as patient is now resting comfortably.
[2023-05-22 04:37] LABS: BUN Creatinine Ratio 20.9 (10-20); Calcium 8.7 mg/dl (8.6-10.3); Creatinine Clr Calc Pharmacy 42.5 ml/min; Est GFR (African American) 69.1 ml/min; Est GFR (Non-African American) 59.6 ml/min; Potassium 3.7 mmol/L (3.5-5.1)
[2023-05-22] MEDS: VENLAFAXINE HCL XR 150 MG CAPXR PO SCH (07:49)
[2023-05-22] MEDS: ASPIRIN 81 MG ECTAB PO SCH (07:49)
[2023-05-22] MEDS: FLUTICASONE/VILANTEROL 200/25MCG 14 PUFFS/INHALER INH SCH (07:49)
[2023-05-22] MEDS: ISOSORBIDE MONO EXTENDED REL 30 MG TABCR PO SCH (07:49)
[2023-05-22] MEDS: oxyBUTYnin chloride 5 MG TAB PO SCH (07:50)
[2023-05-22] MEDS: PANTOprazole 40 MG TAB PO SCH (07:50)
[2023-05-22] MEDS: ATORVASTATIN 10 MG TAB PO SCH (07:50)
--- NOTE | 2023-05-22 11:13 | Hospitalist Progress Note ---
Date of Service May 22, 2023 Assessment & Plan (1) Fall: Plan: Mechanical fall, weakness - Fell while reaching for her walker, no syncope/presyncope CThead: No acute findings, normal CTC-spine: No acute fracture or subluxation Ankle x-ray: No fracture or dislocation Knee x-ray: No acute fractures Also with R deficits due to prior CVA, R foot very difficulty to lift with drop and now with increased pain is recommended for PT/OT. -Awaiting PT OT eval (2) CVA, old, hemiparesis: Plan: History of CVA with right-sided deficits No acute new strokelike symptoms although patient with difficulty ambulating due to her residual deficits and soreness due to fall as noted above Continue aspirin, statin (3) COPD (chronic obstructive pulmonary disease): Plan: Lungs are clear, no acute exacerbation. Albuterol as needed, continue home inhaler (4) GERD without esophagitis: Plan: No symptoms at time of admission (5) Hypertension: Plan: Blood pressure 185/86 Resume home medications (6) Alzheimer's dementia: Plan: Dementia, history of hallucinations Mild Alzheimer's dementia patient remains oriented to name, place, and date and is intermittently forgetful but redirects easily with reasonably good memory High risk for delirium Can continue memantine, Effexor Delirium precautions Plan Continue to monitor, await PT evaluation Admission and Anticipated Discharge Date Admission Date: May 21, 2023 Subjective Patient seen and examined in the emergency department, has residual right hemiparesis from previous stroke Review of Systems Review of Systems: All systems reviewed are negative, apart from the ones contained in the history. Physical Exam Physical Exam: The patient is awake, alert and oriented 3, well developed and well nourished, normocephalic and atraumatic, lying in bed and in no acute distress. HEENT--PERRL, EOMI, mucous membranes and oropharynx mildly dry Neck--supple. No JVD. No bruits. Thyroid normal, trachea midline, no adenopathy. Heart--normal S1 and S2. No murmurs, rubs or gallops. Lungs--clear bilaterally, no respiratory distress, no accessory muscle use. Abdomen--normal bowel sounds and soft. Extremities--no cyanosis or clubbing. No edema. Dermatologic--normal skin turgor, normal color, no abnormal lymph nodes, no rash. Neurologic--cranial nerves II through XII grossly intact. Right hemiparesis Rheumatologic--normal range of motion. Psychiatric--normal affect. Results & Data Results & Data Vital Signs (Past 12 Hours) Vital Signs Temp Pulse Pulse Resp BP Pulse Ox Pulse Ox 05/22/23 07:51 97.9 F 73 20 185/86 H 99 05/22/23 07:27 75 05/22/23 06:10 76 18 171/73 H 99 05/22/23 04:20 78 18 170/65 H 97 05/22/23 03:56 98.1 F 72 16 186/68 H 97 05/22/23 02:47 199/75 H 05/22/23 01:43 85 18 201/76 H 97 05/22/23 00:47 97 05/22/23 00:47 81 18 229/71 H 96 O2 Del Method O2 Del Method 05/22/23 07:51 Room Air 05/22/23 07:27 05/22/23 06:10 Room Air 05/22/23 04:20 Room Air 05/22/23 03:56 Room Air 05/22/23 02:47 05/22/23 01:43 Room Air 05/22/23 00:47 Room Air 05/22/23 00:47 Room Air PG Care Time/CCT Total # of Minutes Spent Total Time Spent with Patient: Total time spent is greater than 50% in coordination of care (as documented) at patient's floor/unit and/or counseling patient: Coding Level of Care Code 61273 SUB INP/OBS CARE 2/35MIN Diagnoses Fall W19.XXXA CVA, old, hemiparesis I69.359 COPD (chronic obstructive pulmonary disease) J44.9 GERD without esophagitis K21.9 Hypertension I10 Alzheimer's dementia G30.9; F02.80 Time Spent (min) 35
[2023-05-22] MEDS ORDERED: ISOSORBIDE MONO EXTENDED REL 30 MG TABCR PO SCH (11:15)
[2023-05-22] MEDS: LIDOCAINE 5% 1 PATCH TD STA (18:26)
[2023-05-22] MEDS: cloNIDine HCL 0.1 MG TAB PO SCH (18:26)
[2023-05-22] MEDS: VERAPAMIL HCL 240 MG TABCR PO SCH (20:43)
[2023-05-22] MEDS ORDERED: VENLAFAXINE HCL XR 150 MG CAPXR PO SCH (21:00)
[2023-05-23 07:25] LABS: Basophils # (auto) 0.01 K/uL (0.00-0.20); Basophils % (auto) 0.1 %; Eosinophils # (auto) 0.05 K/uL (0.00-0.50); Eosinophils % (auto) 0.7 %; Hematocrit (blood only) 38.4 % (37.0-47.0); Hemoglobin 12.9 g/dl (12.0-16.0); Immature Granulocytes # (auto) 0.01 K/uL (0.01-0.20); Immature Granulocytes % (auto) 0.1 %; Lymphocytes # (auto) 1.09 K/uL (1.20-3.40); Lymphocytes % (auto) 14.2 %; Mean Corpuscular Hemoglobin 29.9 pg (25.0-34.0); Mean Corpuscular Hgb Conc 33.6 g/dL (32.0-36.0); Mean Corpuscular Volume 89.1 fL (80.0-100.0); Mean Platelet Volume 9.8 fL (9.4-12.4); Monocytes # (auto) 0.78 K/uL (0.11-0.59); Monocytes % (auto) 10.2 %; Neutrophils # (auto) 5.74 K/uL (1.40-6.50); Neutrophils % (auto) 74.7 %; Platelet Count 173 K/uL (130-400); RDW Coefficient of Variation 14.1 % (11.5-14.5); RDW Standard Deviation 45.7 fL (36.4-46.3); Red Blood Count 4.31 M/uL (4.20-5.40); White Blood Count 7.68 K/ul (4.8-10.8)
[2023-05-23 07:41] LABS: Calcium 8.8 mg/dl (8.6-10.3); Creatinine Clr Calc Pharmacy 44.5 ml/min; Est GFR (African American) 71.9 ml/min; Est GFR (Non-African American) 62.1 ml/min; Potassium 3.8 mmol/L (3.5-5.1)
[2023-05-23] MEDS ORDERED: TOLTERODINE 4 MG PO SCH (09:00)
--- NOTE | 2023-05-23 12:31 | Hospitalist Progress Note ---
Date of Service May 23, 2023 Assessment & Plan (1) Fall: Plan: Mechanical fall, weakness - Fell while reaching for her walker, no syncope/presyncope CThead: No acute findings, normal CTC-spine: No acute fracture or subluxation Ankle x-ray: No fracture or dislocation Knee x-ray: No acute fractures Also with R deficits due to prior CVA, R foot very difficulty to lift with drop and now with increased pain is recommended for PT/OT. -Worked with physical therapy, they are recommending rehab -Authorization has been requested, approval pending (2) CVA, old, hemiparesis: Plan: History of CVA with right-sided deficits No acute new strokelike symptoms although patient with difficulty ambulating due to her residual deficits and soreness due to fall as noted above Continue aspirin, statin (3) COPD (chronic obstructive pulmonary disease): Plan: Lungs are clear, no acute exacerbation. Albuterol as needed, continue home inhaler (4) GERD without esophagitis: Plan: No symptoms at time of admission (5) Hypertension: Plan: Blood pressure 133/68 Continue home medications (6) Alzheimer's dementia: Plan: Dementia, history of hallucinations Mild Alzheimer's dementia patient remains oriented to name, place, and date and is intermittently forgetful but redirects easily with reasonably good memory High risk for delirium Can continue memantine, Effexor Delirium precautions Plan Has been evaluated by physical therapy, determined that patient needs rehab. Pending authorization Admission and Anticipated Discharge Date Admission Date: May 21, 2023 Subjective Patient seen and examined in the emergency department, has residual right hemiparesis and foot drop from previous stroke Review of Systems Review of Systems: All systems reviewed are negative, apart from the ones contained in the history. Physical Exam Physical Exam: The patient is awake, alert and oriented 3, well developed and well nourished, normocephalic and atraumatic, lying in bed and in no acute distress. HEENT--PERRL, EOMI, mucous membranes and oropharynx mildly dry Neck--supple. No JVD. No bruits. Thyroid normal, trachea midline, no adenopathy. Heart--normal S1 and S2. No murmurs, rubs or gallops. Lungs--clear bilaterally, no respiratory distress, no accessory muscle use. Abdomen--normal bowel sounds and soft. Extremities--no cyanosis or clubbing. No edema. Dermatologic--normal skin turgor, normal color, no abnormal lymph nodes, no rash. Neurologic--cranial nerves II through XII grossly intact. Right hemiparesis Rheumatologic--normal range of motion. Psychiatric--normal affect. Results & Data Results & Data Vital Signs (Past 12 Hours) Vital Signs Temp Pulse Pulse Resp BP Pulse Ox O2 Del Method 05/23/23 10:40 97.8 F 67 14 133/68 94 Room Air 05/23/23 09:47 133/78 05/23/23 07:50 99.1 F 71 20 194/62 H 96 Room Air 05/23/23 07:28 70 05/23/23 03:00 98.1 F 64 22 176/70 H 98 Room Air 05/23/23 01:45 65 163/73 H PG Care Time/CCT Total # of Minutes Spent Total Time Spent with Patient: Total time spent is greater than 50% in coordination of care (as documented) at patient's floor/unit and/or counseling patient: Coding Level of Care Code 77321 SUB INP/OBS CARE 2/35MIN Diagnoses Fall W19.XXXA Encounter type: initial encounter CVA, old, hemiparesis I69.359 COPD (chronic obstructive pulmonary disease) J44.9 GERD without esophagitis K21.9 Hypertension I10 Alzheimer's dementia G30.9; F02.80 Time Spent (min) 35 (1) Fall Encounter type: initial encounter Qualified Code(s): W19.XXXA - Unspecified fall, initial encounter
[2023-05-24 08:17] LABS: Basophils # (auto) 0.02 K/uL (0.00-0.20); Basophils % (auto) 0.3 %; Eosinophils # (auto) 0.11 K/uL (0.00-0.50); Eosinophils % (auto) 1.5 %; Hematocrit (blood only) 35.8 % (37.0-47.0); Hemoglobin 11.9 g/dl (12.0-16.0); Immature Granulocytes # (auto) 0.01 K/uL (0.01-0.20); Immature Granulocytes % (auto) 0.1 %; Lymphocytes # (auto) 1.28 K/uL (1.20-3.40); Lymphocytes % (auto) 17.9 %; Mean Corpuscular Hemoglobin 29.7 pg (25.0-34.0); Mean Corpuscular Hgb Conc 33.2 g/dL (32.0-36.0); Mean Corpuscular Volume 89.3 fL (80.0-100.0); Monocytes # (auto) 0.69 K/uL (0.11-0.59); Monocytes % (auto) 9.6 %; Neutrophils # (auto) 5.05 K/uL (1.40-6.50); Neutrophils % (auto) 70.6 %; Platelet Count 150 K/uL (130-400); RDW Standard Deviation 45.2 fL (36.4-46.3); Red Blood Count 4.01 M/uL (4.20-5.40); White Blood Count 7.16 K/ul (4.8-10.8)
[2023-05-24 08:37] LABS: BUN Creatinine Ratio 32.6 (10-20); Calcium 8.5 mg/dl (8.6-10.3); Creatinine Clr Calc Pharmacy 46.1 ml/min; Est GFR (African American) 73.9 ml/min; Est GFR (Non-African American) 63.8 ml/min
--- NOTE | 2023-05-24 12:51 | Orthopedic Consultation ---
Date of Service May 24, 2023 Assessment & Plan (1) Ankle contracture: She was seen and examined by Dr. Kiran today as well. Recommend continued conservative management for this problem. She has a drop foot on the right side and plantar flexion contracture. She has a rigid ankle brace already and it appears to be fitting reasonably well. We would recommend and encouraged her to use this brace for weight bearing/walking. History of Present Illness Reason for Consultation: . right ankle instability Requesting Physician: . Attending Physician: Peter Kline MD .Sylvia is a 82 year old patient with history of cva/right sided hemiparesis, admitted after a fall 3 days ago. She has a chronic drop foot problem with the ankle and has been given an ankle brace in the past. She complains of ankle instability with weight bearing and ankle pain. She admittedly does not wear the brace regularly. Allergies Allergy/AdvReac Type Severity Reaction Status Date / Time nitrofurantoin Allergy Mild RASH Verified 05/21/23 22:23 acetaminophen [From Vicodin] Allergy shortness Verified 05/21/23 22:23 of breath fesoterodine [From Toviaz] Allergy difficult Verified 05/21/23 22:23 swallowing; dry mouth; loss of appetite hydrocodone [From Vicodin] Allergy shortness Verified 05/21/23 22:23 of breath mirabegron [From Myrbetriq] Allergy Hypertensio Verified 05/21/23 22:23 n NSAIDS (Non-Steroidal Allergy Unknown Verified 05/21/23 22:23 Anti-Inflamma onabotulinumtoxinA Allergy Unconscious Verified 05/21/23 22:23 [From Botox] simvastatin [From Zocor] Allergy Muscle Pain Verified 05/21/23 22:23 topiramate [From Topamax] Allergy dyspepsia Verified 05/21/23 22:23 erenumab-aooe AdvReac Intermediate CONSTIPATIO Verified 05/21/23 22:23 [From Aimovig Autoinjector] N meperidine AdvReac Mild NAUSEA Verified 05/17/23 13:34 Home Medications Medication Instructions Recorded Confirmed Type aspirin 81 mg tablet 81 mg PO DAILY 11/21/18 05/21/23 History coenzyme Q10 100 mg capsule 100 mg PO DAILY 11/21/18 05/21/23 History cranberry extract 500 mg capsule 500 mg PO DAILY 11/21/18 05/21/23 History (Cranberry Concentrate) cyanocobalamin (vitamin B-12) 1,000 mcg PO DAILY 11/21/18 05/21/23 History 1,000 mcg tablet docusate sodium 100 mg capsule 100 mg PO DAILY 11/21/18 05/21/23 History loratadine 10 mg tablet 10 mg PO DAILY 11/21/18 05/21/23 History nitroglycerin 0.4 mg sublingual 0.4 mg sublingual Q5M PRN Chest 11/21/18 05/21/23 History tablet Pain #15 tabs sennosides 8.6 mg tablet 8.6 mg PO DAILY PRN Constipation 11/21/18 05/21/23 History azelastine 137 mcg (0.1 %) nasal 2 spray intranasal BID 10/26/21 05/21/23 History spray aerosol fluticasone 250 mcg-salmeterol 50 1 inh inhalation BID PRN .asthma 11/05/21 05/21/23 History mcg/dose blistr powdr for inhalation cholecalciferol (vitamin D3) 25 1,000 unit PO DAILY #90 caps 04/13/22 05/21/23 Rx mcg (1,000 unit) capsule albuterol sulfate 90 mcg/actuation 2 puff inhalation Q4H PRN 05/30/22 05/21/23 Rx aerosol inhaler Shortness Of Breath Or Wheezing #3 Inhalers omeprazole 40 mg capsule,delayed 40 mg PO DAILY #90 caps 09/27/22 05/21/23 Rx release famotidine 40 mg tablet 40 mg PO DAILY #90 tabs 01/16/23 05/21/23 Rx memantine 10 mg tablet 10 mg PO BID #180 tabs 01/17/23 05/21/23 Rx rimegepant 75 mg disintegrating 75 mg PO Q OTHER DAY migraine 04/21/23 05/21/23 Rx tablet (Nurtec ODT) headache #16 tabs atorvastatin 10 mg tablet 10 mg PO .COMPLEX #45 tabs 05/17/23 05/21/23 Rx oxybutynin chloride 5 mg tablet 5 mg PO DAILY #90 tabs 05/17/23 05/21/23 Rx tolterodine 4 mg capsule,extended 4 mg PO DAILY #90 caps 05/17/23 05/21/23 Rx release 24 hr isosorbide mononitrate 30 mg 30 mg PO DAILY 05/21/23 05/21/23 History tablet,extended release 24 hr venlafaxine 75 mg capsule,extended 150 mg PO HS 05/21/23 05/21/23 History release 24 hr verapamil 240 mg tablet,extended 240 mg PO HS 05/21/23 05/21/23 History release Past Med/Surg History Medical History Left flank pain Gross hematuria Contracture, right ankle Right ankle gives out Migraine with aura and without status migrainosus, not intractable Compression fracture of L2 Dependent edema Head trauma Nephrolithiasis Osteopenia Recurrent UTI (urinary tract infection) Right shoulder pain Antiplatelet or antithrombotic long-term use Cough Arteriosclerotic heart disease (ASHD) Depression GERD without esophagitis Lumbar radiculopathy Other insomnia Vitamin D deficiency CVA, old, hemiparesis Asthma Dyslipidemia Sepsis Nonspecific ST-T wave electrocardiographic changes (02/18/13) Hypophosphatemia Hypomagnesemia Hypokalemia Surgical History S/P cholecystectomy Family History Family/Other Diabetes Heart disease Hypertension Sister Diabetes Brother Diabetes Myocardial infarction Uncle Colorectal cancer Denies family history of Ovarian cancer Prostate cancer Breast cancer Social History Smoking Status: Former smoker Second Hand Exposure: Yes; Do You Dip or Chew Tobacco: No; Hx Alcohol Use: No Hx Substance Use: No Preferred Language: Gabonese Communication Ability: Effective Visual Impairment: No Limitations Hearing Ability: Use of Hearing Aid Product Marketing Coordinator Required: No Beliefs That Will Affect Care: None marital status: Current Living Situation: Spouse Current Living Situation Comment: with George current occupational status: disabled Feels Safe at Home: Yes Safety Concerns: Feels Safe At This Time Childhood Exposure to Second-Hand Smoke: Yes Dental Care, Regularly: No Physical Activity Frequency: Does not Exercise Seatbelt Use: always Sunscreen Use: No Assistive Devices: Glasses, Walker and Wheelchair Assistive Devices Comment: glasses at bedside, all other assistive devices at home Review of Systems All systems reviewed & are unremarkable except as noted in HPI & below. Physical Exam . alert, NAD Right ankle: No obvious swelling or ecchymosis. No discoloration. Skin intact. She has no active motion of the ankle and has a plantarflexion contracture. Sensation intact to touch. Results & Data Results & Data Laboratory Results . Diagnostic Findings .xrays of the ankle were reviewed from 05/21/23 and show no fracture. There is a bony prominence on the distal fibula, unchanged from previous xray and appears benign per the radiology report. PG Care Time/CCT Total # of Minutes Spent Total Time Spent with Patient: Total time spent is greater than 50% in coordination of care (as documented) at patient's floor/unit and/or counseling patient: Coding Level of Care Code 90540 IN/OBS CONSULT LVL 3,45M Diagnoses Ankle contracture M24.573
--- NOTE | 2023-05-24 13:07 | Hospitalist Progress Note ---
Date of Service May 24, 2023 Assessment & Plan (1) Fall: Plan: Mechanical fall, weakness. All CT scans and x-rays negative for fracture. She states that her right ankle though has a tendency to roll over when she tries to weight-bear. Orthopedic consultation requested. Continue OT and PT while hospitalized (2) CVA, old, hemiparesis: Plan: History of CVA with right-sided deficits. Supportive care. Continue OT and PT (3) COPD (chronic obstructive pulmonary disease): Plan: Stable. No acute exacerbation. Continue current medical management (4) Hypertension: Plan: Stable. Continue clonidine and verapamil (5) Alzheimer's dementia: Plan: Supportive care. Continue current medical management Plan SNF placement pending. Await orthopedic consultation and recommendation regarding right ankle instability Admission and Anticipated Discharge Date Admission Date: May 23, 2023 Subjective Alert and oriented. No distress. is at the bedside. She states her right ankle turns over when she attempts to weight-bear. Orthopedic consultation requested. SNF placement pending. Otherwise, she is medically stable Review of Systems 2 Review of Systems: Constitutional-no fever or chills ENT-no blurred vision, no double vision, no epistaxis, no sore throat Respiratory-no cough, no wheezing, no shortness of breath Cardiac-no palpitations, no chest pain, no syncope GI-no nausea, vomiting, diarrhea, melena, hematochezia -no urinary retention, no urinary incontinence, no dysuria, no hematuria Musculoskeletal-no joint pain, no muscle tenderness. 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 No rales, wheezing or rhonchi Cardiac-regular rate and rhythm, normal S1 and S2 Abdomen-normal bowel sounds, nontender, no hepatosplenomegaly Extremities-no cyanosis, clubbing, or edema Neuro-cranial nerves II through XII intact, sensory function within normal limits, right hemiparesis noted which is chronic Psych-normal affect, normal mood Results & Data Results & Data Vital Signs (Past 12 Hours) Vital Signs Temp Pulse Pulse Resp BP Pulse Ox O2 Del Method 05/24/23 11:41 36.6 C 60 18 127/58 L 94 Room Air 05/24/23 11:00 Room Air 05/24/23 07:58 37.7 C H 58 L 17 141/56 H 93 Room Air 05/24/23 07:00 56 L 05/24/23 03:12 37.4 C 62 18 170/69 H 94 Room Air Laboratory Results 05/24/23 07:34 05/24/23 07:34 PG Care Time/CCT Total # of Minutes Spent Total Time Spent with Patient: Total time spent is greater than 50% in coordination of care (as documented) at patient's floor/unit and/or counseling patient: Coding Level of Care Code 50677 SUB INP/OBS CARE 3/50MIN Diagnoses Fall W19.XXXA Encounter type: initial encounter CVA, old, hemiparesis I69.359 COPD (chronic obstructive pulmonary disease) J44.9 Hypertension I10 Alzheimer's dementia G30.9; F02.80 (1) Fall Encounter type: initial encounter Qualified Code(s): W19.XXXA - Unspecified fall, initial encounter
[2023-05-24] MEDS: ACETAMINOPHEN 325 MG TAB PO ONE (20:18)
[2023-05-25] MEDS: ACETAMINOPHEN 325 MG TAB PO PRN (08:26)
--- NOTE | 2023-05-25 14:05 | Hospitalist Progress Note ---
Date of Service May 25, 2023 Assessment & Plan (1) Fall: Plan: Mechanical fall, weakness. All CT scans and x-rays negative for fracture. She states that her right ankle though has a tendency to roll over when she tries to weight-bear. Orthopedic consultation noted. 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 A right ankle brace has been recommended. Continue OT and PT while hospitalized (2) CVA, old, hemiparesis: Plan: History of CVA with right-sided deficits. Supportive care. Continue OT and PT (3) COPD (chronic obstructive pulmonary disease): Plan: Stable. No acute exacerbation. Continue current medical management (4) Hypertension: Plan: Stable. Continue clonidine and verapamil (5) Alzheimer's dementia: Plan: Supportive care. Continue current medical management Plan SNF placement pending. Admission and Anticipated Discharge Date Admission Date: May 23, 2023 Subjective Stable overall. No new problems. Case management pursuing SNF placement. IPR has been denied. Orthopedic consultation noted. 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 Review of Systems 2 Review of Systems: Constitutional-no fever or chills ENT-no blurred vision, no double vision, no epistaxis, no sore throat Respiratory-no cough, no wheezing, no shortness of breath Cardiac-no palpitations, no chest pain, no syncope GI-no nausea, vomiting, diarrhea, melena, hematochezia -no urinary retention, no urinary incontinence, no dysuria, no hematuria Musculoskeletal-no joint pain, no muscle tenderness. 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 No rales, wheezing or rhonchi Cardiac-regular rate and rhythm, normal S1 and S2 Abdomen-normal bowel sounds, nontender, no hepatosplenomegaly Extremities-no cyanosis, clubbing, or edema Neuro-cranial nerves II through XII intact, sensory function within normal limits, right hemiparesis noted which is chronic Psych-normal affect, normal mood Results & Data Results & Data Vital Signs (Past 12 Hours) Vital Signs Temp Pulse Pulse Resp BP Pulse Ox O2 Del Method 05/25/23 11:17 36.5 C 51 L 16 122/69 97 Room Air 05/25/23 10:32 Room Air 05/25/23 07:26 36.7 C 60 159/80 H 97 Room Air 05/25/23 07:00 55 L 05/25/23 03:12 36.3 C L 44 L 18 146/71 H 96 Room Air Laboratory Results 05/24/23 07:34 05/24/23 07:34 PG Care Time/CCT Total # of Minutes Spent Total Time Spent with Patient: Total time spent is greater than 50% in coordination of care (as documented) at patient's floor/unit and/or counseling patient: Coding Level of Care Code 40416 SUB INP/OBS CARE 2/35MIN Diagnoses Fall W19.XXXA Encounter type: initial encounter CVA, old, hemiparesis I69.359 COPD (chronic obstructive pulmonary disease) J44.9 Hypertension I10 Alzheimer's dementia G30.9; F02.80 (1) Fall Encounter type: initial encounter Qualified Code(s): W19.XXXA - Unspecified fall, initial encounter
--- NOTE | 2023-05-26 15:02 | Hospitalist Progress Note ---
Date of Service May 26, 2023 Assessment & Plan (1) Fall: Plan: Mechanical fall, weakness. All CT scans and x-rays negative for fracture. She states that her right ankle though has a tendency to roll over when she tries to weight-bear. Orthopedic consultation noted. 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 A right ankle brace has been recommended. Continue OT and PT while hospitalized (2) CVA, old, hemiparesis: Plan: History of CVA with right-sided deficits. Supportive care. Continue OT and PT (3) COPD (chronic obstructive pulmonary disease): Plan: Stable. No acute exacerbation. Continue current medical management (4) Hypertension: Plan: Stable. Continue clonidine and verapamil (5) Alzheimer's dementia: Plan: Supportive care. Continue current medical management Plan Discharge to [facility] when insurance authorization received. Admission and Anticipated Discharge Date Admission Date: May 23, 2023 Subjective No new problems. Medically stable. Possible discharge to [facility] yet later today, May 26. She has been accepted by the facility but insurance authorization is pending Review of Systems 2 Review of Systems: Constitutional-no fever or chills ENT-no blurred vision, no double vision, no epistaxis, no sore throat Respiratory-no cough, no wheezing, no shortness of breath Cardiac-no palpitations, no chest pain, no syncope GI-no nausea, vomiting, diarrhea, melena, hematochezia -no urinary retention, no urinary incontinence, no dysuria, no hematuria Musculoskeletal-no joint pain, no muscle tenderness. 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 No rales, wheezing or rhonchi Cardiac-regular rate and rhythm, normal S1 and S2 Abdomen-normal bowel sounds, nontender, no hepatosplenomegaly Extremities-no cyanosis, clubbing, or edema Neuro-cranial nerves II through XII intact, sensory function within normal limits, right hemiparesis noted which is chronic Psych-normal affect, normal mood Results & Data Results & Data Vital Signs (Past 12 Hours) Vital Signs Temp Pulse Pulse Resp BP Pulse Ox O2 Del Method 05/26/23 14:36 56 L 05/26/23 11:56 36.3 C L 52 L 18 129/60 96 Room Air 05/26/23 10:26 Room Air 05/26/23 08:24 36.3 C L 47 L 16 161/59 H 99 Room Air 05/26/23 07:34 38 L 05/26/23 04:50 36.3 C L 42 L 16 132/86 95 Room Air Laboratory Results 05/24/23 07:34 05/24/23 07:34 PG Care Time/CCT Total # of Minutes Spent Total Time Spent with Patient: Total time spent is greater than 50% in coordination of care (as documented) at patient's floor/unit and/or counseling patient: Coding Level of Care Code 02230 SUB INP/OBS CARE 2/35MIN Diagnoses Fall W19.XXXA Encounter type: initial encounter CVA, old, hemiparesis I69.359 COPD (chronic obstructive pulmonary disease) J44.9 Hypertension I10 Alzheimer's dementia G30.9; F02.80 (1) Fall Encounter type: initial encounter Qualified Code(s): W19.XXXA - Unspecified fall, initial encounter
--- NOTE | 2023-05-26 15:51 | Discharge Summary ---
Date of Service May 26, 2023 Admission HPI Per Admitting Provider Sylvia is a 82-year-old old with a past medical history of asthma, CVA, CAD, compression fractures, COPD, cognitive and behavioral chain, hallucinations, and dementia who presents to the ER with R ankle pain, headache, R back pain after a fall when she tripped after going to the bathroom. She did strike her head and twisted her right leg, she is not on an anticoagulant. Sylvia seen at the bedside with her present. She reports that she was coming out of the bathroom when she rolled her ankle which caused her to trip and fall. She notes she has had problems with her right foot and her ankle rolls over very easily on that side since her stroke. She fell and did strike her head on the left side. Has some mild soreness different from her normal migraines because of this but overall feels better laying and resting in bed. No vision change. She has not had chest pressure or chest pain and no fevers chills or sweats. She has chronic right upper and right lower extremity weakness which is most pronounced in her right foot, her foot is more sore and swollen since she twisted it. She reports that her blood pressure is typically reasonably well-controlled used to be on additional blood pressure medications including hydrochlorothiazide but these were discontinued in the past as her blood pressure was doing reasonably well. No chest pain or chest pressure. Denies history of heart attacks. Denies chest pain with exertion. No dyspnea at time of assessment. Denies tobacco/alcohol/recreational substance use. DNR/DNI. Principal Diagnosis Mechanical fall, ambulatory dysfunction, right foot drop with right ankle instability Discharge Exam General-alert and oriented x3, no fevers, no chills HEENT-head atraumatic and normocephalic, pupils equal and reactive to light, extraocular muscles intact Neck-no lymphadenopathy or thyromegaly, trachea midline Chest-clear to auscultation. No rales, wheezing or rhonchi Cardiac-regular rate and rhythm, normal S1 and S2 Abdomen-normal bowel sounds, nontender, no hepatosplenomegaly Extremities-no cyanosis, clubbing, or edema Neuro-cranial nerves II through XII intact, sensory function within normal limits, right hemiparesis noted which is chronic Psych-normal affect, normal mood Discharge Data Allergies Allergy/AdvReac Type Severity Reaction Status Date / Time nitrofurantoin Allergy Mild RASH Verified 05/21/23 22:23 acetaminophen [From Vicodin] Allergy shortness Verified 05/21/23 22:23 of breath fesoterodine [From Toviaz] Allergy difficult Verified 05/21/23 22:23 swallowing; dry mouth; loss of appetite hydrocodone [From Vicodin] Allergy shortness Verified 05/21/23 22:23 of breath mirabegron [From Myrbetriq] Allergy Hypertensio Verified 05/21/23 22:23 n NSAIDS (Non-Steroidal Allergy Unknown Verified 05/21/23 22:23 Anti-Inflamma onabotulinumtoxinA Allergy Unconscious Verified 05/21/23 22:23 [From Botox] simvastatin [From Zocor] Allergy Muscle Pain Verified 05/21/23 22:23 topiramate [From Topamax] Allergy dyspepsia Verified 05/21/23 22:23 erenumab-aooe AdvReac Intermediate CONSTIPATIO Verified 05/21/23 22:23 [From Aimovig Autoinjector] N meperidine AdvReac Mild NAUSEA Verified 05/17/23 13:34 Consultations 05/24/23 12:05 Consult Orthopedic Surgery Routine Ordered Studies 05/21/23 16:15 CT head/brain wo con Stat CT neck [CT cervical spine wo con] Stat Hospital Course (1) Fall: Mechanical fall, weakness. All CT scans and x-rays negative for fracture. She states that her right ankle though has a tendency to roll over when she tries to weight-bear. Orthopedic consultation noted. 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 A right ankle brace has been recommended. Continue OT and PT while hospitalized (2) CVA, old, hemiparesis: History of CVA with right-sided deficits. Supportive care. Continue OT and PT (3) COPD (chronic obstructive pulmonary disease): Stable. No acute exacerbation. Continue current medical management (4) Hypertension: Stable. Continue clonidine and verapamil (5) Alzheimer's dementia: Supportive care. Continue current medical management Plan Discharge to [facility] when insurance authorization received. Total Time Total Time Spent Total Time Spent (In Minutes): 45 minutes Discharge Plan Discharge Items Patient Disposition: Transfer [facility] Reason For Visit: FALL, PT/OT/PLACEMENT, HTN Discharge Diagnosis: Mechanical fall, ambulatory dysfunction with right foot drop Activity: Resume your previous activity Non-emergency contact: Primary Care Provider Call non-emergency contact if: your symptoms worsen Follow-up/Referrals: Sreekanth Mclaughlin MD [Primary Care Provider] - Diet: Regular Addtl Attending Provider Instructions: Wear right ankle brace while ambulating Pending Studies at Discharge: No Stand-Alone Forms: My [facility] Skilled Items Patient informed of condition?: Yes DNR: Yes Discharge Level of Care: Skilled Communicable Disease: No Discharge Prognosis: Stable Lines: None Urinary Catheter: No Medications and DC Order Prescriptions: New isosorbide mononitrate 30 mg Tablet Extended Release 24 Hr 30 mg PO QAM Qty: 0 0RF clonidine HCl 0.1 mg Tablet 0.1 mg PO TID Qty: 0 0RF Continued cholecalciferol (vitamin D3) 25 mcg (1,000 unit) capsule 1,000 unit PO DAILY Qty: 90 1RF omeprazole 40 mg capsule,delayed release(DR/EC) 40 mg PO DAILY Qty: 90 1RF famotidine 40 mg tablet 40 mg PO DAILY Qty: 90 3RF atorvastatin 10 mg tablet 10 mg PO .COMPLEX Qty: 45 3RF Rx Instructions: 10 mg PO QOD; albuterol sulfate 90 mcg/actuation HFA aerosol inhaler 2 puff inhalation Q4H PRN (Reason: Shortness Of Breath Or Wheezing) Qty: 3 3RF memantine 10 mg tablet 10 mg PO BID Qty: 180 3RF Nurtec ODT 75 mg tablet,disintegrating 75 mg PO Q OTHER DAY Qty: 16 6RF coenzyme Q10 100 mg capsule 100 mg PO DAILY nitroglycerin 0.4 mg tablet, sublingual 0.4 mg SL Q5M PRN (Reason: Chest Pain) Qty: 15 cranberry extract [Cranberry Concentrate] 500 mg capsule 500 mg PO DAILY loratadine 10 mg tablet 10 mg PO DAILY docusate sodium 100 mg capsule 100 mg PO DAILY cyanocobalamin (vitamin B-12) 1,000 mcg tablet 1,000 mcg PO DAILY sennosides 8.6 mg tablet 8.6 mg PO DAILY PRN (Reason: Constipation) aspirin 81 mg tablet 81 mg PO DAILY fluticasone propion-salmeterol 250-50 mcg/dose blister with device 1 inh inhalation BID PRN (Reason: .asthma) Dose Instruction: USE 1 INHALATION TWICE A DAY NEEDED FOR ASTHMA Rx Instructions: USE 1 INHALATION TWICE A DAY NEEDED FOR ASTHMA tolterodine 4 mg capsule,extended release 24hr 4 mg PO DAILY Qty: 90 3RF oxybutynin chloride 5 mg tablet 5 mg PO DAILY Qty: 90 3RF azelastine 137 mcg (0.1 %) aerosol,spray 2 spray intranasal BID venlafaxine 75 mg capsule,extended release 24hr 150 mg PO HS isosorbide mononitrate 30 mg tablet extended release 24 hr 30 mg PO DAILY Rx Instructions: TAKE 1 TABLET DAILY verapamil 240 mg tablet extended release 240 mg PO HS Discharge Orders: Discharge Order (Routine); Ordered 05/26/23 Ordered By: Peter Kline Admission Data Admit Date/Time: 05/23/23 15:39 Attending Provider: Peter Kline Admit Provider: Julio Costa Primary Care Provider: Sreekanth Mclaughlin V. Other Providers: [facility]; Darvin Veliz; Jaylin Lindsay [place] Coding Level of Care Code 62152 INP/OBS DISCH >30 MIN Diagnoses Fall W19.XXXA Encounter type: initial encounter CVA, old, hemiparesis I69.359 COPD (chronic obstructive pulmonary disease) J44.9 Hypertension I10 Alzheimer's dementia G30.9; F02.80
== END 2023-05-26 17:00 | DRG 92 ==
LOC: ED 15:19 → EDINP 15:19 → SUATTDRO 20:01 → 2N 05-22 00:51 → SUATTDRO 05-23 15:39

== ENCOUNTER 2023-05-27 16:06 | Inpatient (IN) ==
[2023-05-27] MEDS: ONDANSETRON INJ 2 MG/ML 2 ML VIAL IV STA (16:15)
[2023-05-27] MEDS: OPTIRAY 320 125ml IV ONE (16:28)
--- NOTE | 2023-05-27 16:30 | Emergency Department Note ---
History of Present Illness General Chief complaint: Stroke Alert Time Seen by Provider: 05/27/23 16:09 Source: EMS History of Present Illness Provider complaint: Stroke alert 82-year-old female presents emergency department for stroke alert. Patient arrives via EMS. Per EMS the patient was washing her hands in her bathroom sink at 1515 and suddenly became altered and having a headache and vomiting. EMS got there the patient was not following commands Home Medications Medication Instructions Recorded Confirmed Type coenzyme Q10 100 mg capsule 100 mg PO DAILY 11/21/18 05/27/23 History cranberry extract 500 mg capsule 500 mg PO DAILY 11/21/18 05/27/23 History (Cranberry Concentrate) cyanocobalamin (vitamin B-12) 1,000 mcg PO DAILY 11/21/18 05/27/23 History 1,000 mcg tablet docusate sodium 100 mg capsule 100 mg PO DAILY 11/21/18 05/27/23 History loratadine 10 mg tablet 10 mg PO DAILY 11/21/18 05/27/23 History nitroglycerin 0.4 mg sublingual 0.4 mg sublingual Q5M PRN Chest 11/21/18 05/27/23 History tablet Pain #15 tabs cholecalciferol (vitamin D3) 25 1,000 unit PO DAILY #90 caps 04/13/22 05/27/23 Rx mcg (1,000 unit) capsule albuterol sulfate 90 mcg/actuation 2 puff inhalation Q4H PRN 05/30/22 05/27/23 Rx aerosol inhaler Shortness Of Breath Or Wheezing #3 Inhalers omeprazole 40 mg capsule,delayed 40 mg PO DAILY #90 caps 09/27/22 05/27/23 Rx release famotidine 40 mg tablet 40 mg PO DAILY #90 tabs 01/16/23 05/27/23 Rx memantine 10 mg tablet 10 mg PO BID #180 tabs 01/17/23 05/27/23 Rx isosorbide mononitrate 30 mg 30 mg PO DAILY 05/21/23 05/27/23 History tablet,extended release 24 hr verapamil 240 mg tablet,extended 240 mg PO HS 05/21/23 05/27/23 History release clonidine HCl 0.1 mg tablet 0.1 mg PO TID #0 tabs 05/26/23 05/27/23 Rx acetaminophen 325 mg tablet 650 mg PO Q4H PRN PAIN/FEVER>=100 05/27/23 05/27/23 History (Tylenol) aspirin 81 mg chewable tablet 81 mg PO DAILY 05/27/23 05/27/23 History atorvastatin 10 mg tablet 10 mg PO Q OTHER DAY 05/27/23 05/27/23 History venlafaxine 150 mg 150 mg PO QPM 05/27/23 05/27/23 History capsule,extended release 24 hr (Effexor XR) Allergies Allergy/AdvReac Type Severity Reaction Status Date / Time acetaminophen [From Vicodin] Allergy Severe shortness Verified 05/27/23 17:06 of breath fesoterodine [From Toviaz] Allergy Severe difficult Verified 05/27/23 17:06 swallowing; dry mouth; loss of appetite hydrocodone [From Vicodin] Allergy Severe shortness Verified 05/27/23 17:06 of breath topiramate [From Topamax] Allergy Severe dyspepsia Verified 05/27/23 17:06 nitrofurantoin Allergy Intermediate RASH Verified 05/27/23 17:06 NSAIDS (Non-Steroidal Allergy Unknown Unknown Verified 05/27/23 17:06 Anti-Inflamma onabotulinumtoxinA AdvReac Severe Unconscious Verified 05/27/23 17:06 [From Botox] [id number] AdvReac Intermediate CONSTIPATIO Verified 05/27/23 17:06 [From Aimovig Autoinjector] N mirabegron [From Myrbetriq] AdvReac Intermediate Hypertensio Verified 05/27/23 17:06 n simvastatin [From Zocor] AdvReac Intermediate Muscle Pain Verified 05/27/23 17:06 meperidine AdvReac Mild NAUSEA Verified 05/27/23 17:06 Past Med/Surg History Medical History Left flank pain Gross hematuria Contracture, right ankle Right ankle gives out Migraine with aura and without status migrainosus, not intractable Compression fracture of L2 Dependent edema Head trauma Nephrolithiasis Osteopenia Recurrent UTI (urinary tract infection) Right shoulder pain Antiplatelet or antithrombotic long-term use Cough Arteriosclerotic heart disease (ASHD) Depression GERD without esophagitis Lumbar radiculopathy Other insomnia Vitamin D deficiency CVA, old, hemiparesis Asthma Dyslipidemia Sepsis Nonspecific ST-T wave electrocardiographic changes (02/18/13) Hypophosphatemia Hypomagnesemia Hypokalemia Surgical History S/P cholecystectomy Family History Family/Other Diabetes Heart disease Hypertension Sister Diabetes Brother Diabetes Myocardial infarction Uncle Colorectal cancer Denies family history of Ovarian cancer Prostate cancer Breast cancer Social History Smoking Status: Unknown if ever smoked Second Hand Exposure: Yes; Do You Dip or Chew Tobacco: No; Hx Alcohol Use: No Hx Substance Use: No Preferred Language: German Communication Ability: Effective Visual Impairment: No Limitations Hearing Ability: Use of Hearing Aid Lead Systems Analyst Required: No Beliefs That Will Affect Care: None marital status: Current Living Situation: Spouse Current Living Situation Comment: with George current occupational status: disabled Feels Safe at Home: Yes Childhood Exposure to Second-Hand Smoke: Yes Dental Care, Regularly: No Physical Activity Frequency: Does not Exercise Seatbelt Use: always Sunscreen Use: No Assistive Devices: Glasses, Walker and Wheelchair Physical Exam Vital Signs Vital Signs - 24 hr 05/27/23 16:28 05/27/23 16:29 05/27/23 16:31 Pulse Rate 111 H 110 H 110 H Pulse Rate from SpO2 Sensor 112 H 110 H Respiratory Rate 19 22 24 Blood Pressure 97/74 L 172/141 H 172/141 H Blood Pressure Mean 81 151 151 Blood Pressure Position Sitting Pulse Oximetry 93 91 94 Oxygen Delivery Method Room Air Oxygen Flow Rate Sepsis Recent Fever Within 48 Hours No Sepsis New/Unexplained Change in Mental Status No Sepsis Action Taken by Nursing Physician Notified Oxygen Flow Rate - Titration Pulse Oximetry Post Tiitration 05/27/23 16:34 05/27/23 16:46 05/27/23 16:57 Pulse Rate 110 H 105 H 112 H Pulse Rate from SpO2 Sensor 110 H 104 H Respiratory Rate 26 H 20 Blood Pressure 148/116 H 203/153 H Blood Pressure Mean 126 169 Blood Pressure Position Pulse Oximetry 92 93 Oxygen Delivery Method Oxygen Flow Rate Sepsis Recent Fever Within 48 Hours Sepsis New/Unexplained Change in Mental Status Sepsis Action Taken by Nursing Oxygen Flow Rate - Titration Pulse Oximetry Post Tiitration 05/27/23 16:58 05/27/23 17:09 05/27/23 17:16 Pulse Rate 112 H 81 81 Pulse Rate from SpO2 Sensor 80 Respiratory Rate 19 44 H 28 H Blood Pressure 215/114 H 146/85 H 133/108 H Blood Pressure Mean 147 105 116 Blood Pressure Position Pulse Oximetry 94 Oxygen Delivery Method Oxygen Flow Rate Sepsis Recent Fever Within 48 Hours Sepsis New/Unexplained Change in Mental Status Sepsis Action Taken by Nursing Oxygen Flow Rate - Titration Pulse Oximetry Post Tiitration 05/27/23 17:31 05/27/23 17:47 05/27/23 17:50 Pulse Rate 82 84 86 Pulse Rate from SpO2 Sensor 83 85 86 Respiratory Rate 27 H 27 H 18 Blood Pressure 185/109 H 179/112 H Blood Pressure Mean 134 134 Blood Pressure Position Pulse Oximetry 94 94 80 L Oxygen Delivery Method Room Air Oxygen Flow Rate Sepsis Recent Fever Within 48 Hours Sepsis New/Unexplained Change in Mental Status Sepsis Action Taken by Nursing Oxygen Flow Rate - Titration Pulse Oximetry Post Tiitration 05/27/23 17:50 05/27/23 18:00 05/27/23 18:05 Pulse Rate 84 86 Pulse Rate from SpO2 Sensor 84 88 Respiratory Rate 34 H 27 H Blood Pressure 193/119 H 132/105 H Blood Pressure Mean 143 114 Blood Pressure Position Pulse Oximetry 80 L 97 98 Oxygen Delivery Method Nasal Cannula Nasal Cannula Nasal Cannula Oxygen Flow Rate 0 2 2 Sepsis Recent Fever Within 48 Hours Sepsis New/Unexplained Change in Mental Status Sepsis Action Taken by Nursing Oxygen Flow Rate - Titration 2 Pulse Oximetry Post Tiitration 98 05/27/23 18:10 05/27/23 18:15 05/27/23 18:30 Pulse Rate 78 79 80 Pulse Rate from SpO2 Sensor 78 78 80 Respiratory Rate 26 H 26 H 26 H Blood Pressure 151/116 H Blood Pressure Mean 127 Blood Pressure Position Pulse Oximetry 96 94 99 Oxygen Delivery Method Nasal Cannula Nasal Cannula Oxygen Flow Rate 2 2 Sepsis Recent Fever Within 48 Hours Sepsis New/Unexplained Change in Mental Status Sepsis Action Taken by Nursing Oxygen Flow Rate - Titration Pulse Oximetry Post Tiitration 05/27/23 18:31 05/27/23 18:40 05/27/23 18:50 Pulse Rate 80 78 84 Pulse Rate from SpO2 Sensor 78 79 84 Respiratory Rate 29 H 26 H 26 H Blood Pressure 177/76 H Blood Pressure Mean 109 Blood Pressure Position Pulse Oximetry 98 97 97 Oxygen Delivery Method Nasal Cannula Oxygen Flow Rate 2 Sepsis Recent Fever Within 48 Hours Sepsis New/Unexplained Change in Mental Status Sepsis Action Taken by Nursing Oxygen Flow Rate - Titration Pulse Oximetry Post Tiitration 05/27/23 19:00 05/27/23 19:00 05/27/23 19:00 Pulse Rate 79 Pulse Rate from SpO2 Sensor 79 Respiratory Rate 24 Blood Pressure 156/83 H 156/83 H Blood Pressure Mean 99 99 Blood Pressure Position Pulse Oximetry 98 Oxygen Delivery Method Oxygen Flow Rate Sepsis Recent Fever Within 48 Hours Sepsis New/Unexplained Change in Mental Status Sepsis Action Taken by Nursing Oxygen Flow Rate - Titration Pulse Oximetry Post Tiitration 05/27/23 19:10 05/27/23 19:14 05/27/23 19:14 Pulse Rate 84 82 Pulse Rate from SpO2 Sensor 84 Respiratory Rate 23 Blood Pressure 153/83 H Blood Pressure Mean Blood Pressure Position Pulse Oximetry 98 Oxygen Delivery Method Oxygen Flow Rate Sepsis Recent Fever Within 48 Hours Sepsis New/Unexplained Change in Mental Status Sepsis Action Taken by Nursing Oxygen Flow Rate - Titration Pulse Oximetry Post Tiitration 05/27/23 19:15 05/27/23 19:15 05/27/23 19:20 Pulse Rate 83 87 Pulse Rate from SpO2 Sensor 86 88 Respiratory Rate 24 25 H Blood Pressure 167/112 H Blood Pressure Mean 127 Blood Pressure Position Pulse Oximetry 97 98 Oxygen Delivery Method Oxygen Flow Rate Sepsis Recent Fever Within 48 Hours Sepsis New/Unexplained Change in Mental Status Sepsis Action Taken by Nursing Oxygen Flow Rate - Titration Pulse Oximetry Post Tiitration 05/27/23 19:30 05/27/23 19:31 05/27/23 19:31 Pulse Rate 89 91 H Pulse Rate from SpO2 Sensor 87 88 Respiratory Rate 26 H 30 H Blood Pressure 187/98 H Blood Pressure Mean 120 Blood Pressure Position Pulse Oximetry 98 96 Oxygen Delivery Method Oxygen Flow Rate Sepsis Recent Fever Within 48 Hours Sepsis New/Unexplained Change in Mental Status Sepsis Action Taken by Nursing Oxygen Flow Rate - Titration Pulse Oximetry Post Tiitration 05/27/23 19:57 05/27/23 20:20 Pulse Rate 87 77 Pulse Rate from SpO2 Sensor Respiratory Rate Blood Pressure 202/140 H Blood Pressure Mean Blood Pressure Position Pulse Oximetry Oxygen Delivery Method Oxygen Flow Rate Sepsis Recent Fever Within 48 Hours Sepsis New/Unexplained Change in Mental Status Sepsis Action Taken by Nursing Oxygen Flow Rate - Titration Pulse Oximetry Post Tiitration Physical Exam GENERAL: Ill-appearing HENT: Exam performed. - Head: Normocephalic and atraumatic. EYES: Conjunctivae and EOM are normal. Right eye exhibits no discharge. Left eye exhibits no discharge. No scleral icterus. CV: Tachycardic rate, regular rhythm, normal heart sounds and intact distal pulses. There is no peripheral edema. Palpable radial pulses bue. PULM/CHEST: Labored breathing rhonchi bilaterally. NEURO: GCS: 11 (E:4, V:2, M:5) Course Course 1600: Call received from EMS. Stroke alert called. 1614: The patient was taken straight to CT and the patient started vomiting while on the CT table. 4 of Zofran was ordered for the patient. CT of the head viewed by me did not show any ICH, chronically dilated ventricles in her brain which were there on previous CT scans. 1635: Received a message from Dr. Ruiz radiology the patient has a right- sided subdural hematoma. Discussed with family, and adult children at bedside. They confirm that the patient is DNR/DNI and the patient would not want any heroic measures including no surgical procedures, no mechanical ventilation, no chest compressions, no defibrillation's. Given this we will speak with the [facility] team to have them evaluate the patient for admission as there be no benefit to transfer as the patient does not want any heroic measures to be performed according to the family. All of the family are in agreement on this matter. 1650: Discussed the case with Dr. Pierce [facility] will evaluate the patient for admission. Patient hypertensive labetalol ordered for the patient. 1710: Blood pressure improved with labetalol. Administered Medications Ceftriaxone Sodium 2,000 mg/ (Dextrose) 50 mls @ 100 mls/hr IV Q24H SUBHA; Protocol Stop: 05/29/23 17:59 Last Infusion: 05/27/23 19:24 Dose: Infused Documented By: Admin: 05/27/23 18:52 Dose: 100 mls/hr [place]ed [place] [facility] [place]ren[place] Electrolytes (Plasma-Lyte A Ph 7.4) 1,000 mls @ 100 mls/hr IV .Q10H SUBHA Stop: 06/26/23 18:59 Last Admin: 05/27/23 19:24 Dose: 100 mls/hr Documented By: Discontinued Medications Ioversol (Optiray 320 125ml) 117 ml IV ONCE ONE Stop: 05/27/23 16:29 Last Admin: 05/27/23 16:28 Dose: 117 ml Documented By: JENNY Labetalol HCl (Labetalol Hcl Iv 5 Mg/Ml 20ml) 20 mg IV NOW STA Stop: 05/27/23 16:56 Last Admin: 05/27/23 17:00 Dose: 10 mg Documented By: ZHANNA Co-signed By: APURVA Labetalol HCl (Labetalol Hcl Iv 5 Mg/Ml 20ml) 10 mg IV NOW STA Stop: 05/27/23 17:59 Last Admin: 05/27/23 18:03 Dose: 10 mg Documented By: ZHANNA Co-signed By: APURVA Labetalol HCl (Labetalol Hcl Iv 5 Mg/Ml 20ml) 10 mg IV NOW STA Stop: 05/27/23 19:55 Last Admin: 05/27/23 19:57 Dose: 10 mg Documented By: PREETI Co-signed By: JACK Naloxone HCl (Naloxone Hcl 0.4 Mg/1 Ml Vial/Carp) Confirm Administered Dose 0.4 mg .ROUTE .STK-MED ONE Stop: 05/27/23 16:35 Last Admin: 05/27/23 16:35 Dose: 0.4 mg Documented By: APURVA Ondansetron HCl (Ondansetron Inj 2 Mg/Ml 2 Ml Vial) 4 mg IV NOW STA Stop: 05/27/23 16:14 Last Admin: 05/27/23 16:15 Dose: 4 mg Documented By: APURVA Ondansetron HCl (Ondansetron Inj 2 Mg/Ml 2 Ml Vial) Confirm Administered Dose 4 mg .ROUTE .STK-MED ONE Stop: 05/27/23 16:15 Last Admin: 05/27/23 16:42 Dose: Not Given Documented By: APURVA Medical Decision Making Medical Records Attestation: I reviewed the patient's medical records. External medical records reviewed. Patient is a DNR/DNI according to her resuscitation status filled out by the hospitalist on May 21, 2023. Patient was admitted to this facility from May 21 to May 26, 2023. She was admitted for med chemical fall. All imaging was negative. Patient was admitted for OT PT and then discharge to [facility]. CT of the head from May 21, 2023 as well as October 27, 2023 does show that this dilated ventricles Laboratory Data Attestation: I reviewed the patient's lab results. 05/27/23 16:27 05/27/23 16:27 Lab Results 05/27/23 05/27/23 05/27/23 Range/Units 16:27 16:33 17:20 WBC 11.30 H (4.8-10.8) K/ul RBC 3.99 L (4.20-5.40) M/uL Hgb 11.8 L (12.0-16.0) g/dl Hct 37.1 (37.0-47.0) % MCV 93.0 (80.0-100.0) fL MCH 29.6 (25.0-34.0) pg MCHC 31.8 L (32.0-36.0) g/dL RDW Std Deviation 46.9 H (36.4-46.3) fL RDW Coeff of [place] 13.7 (11.5-14.5) % Plt Count 200 (130-400) K/uL MPV 10.0 (9.4-12.4) fL Immature Gran % (Auto) 0.4 % Neut % (Auto) 67.5 % Lymph % (Auto) 24.0 % Gilmer % (Auto) 6.5 % Eos % (Auto) 1.2 % Baso % (Auto) 0.4 % Neut # (Auto) 7.63 H (1.40-6.50) K/uL Lymph # (Auto) 2.71 (1.20-3.40) K/uL Gilmer # (Auto) 0.73 H (0.11-0.59) K/uL Eos # (Auto) 0.14 (0.00-0.50) K/uL Baso # (Auto) 0.04 (0.00-0.20) K/uL Immature Gran # (Auto) 0.05 (0.01-0.20) K/uL ESR 25 (0-30) mm/hr PT 11.5 (9.0-12.0) Seconds INR 1.1 (0.9-1.1) APTT 22 (21-31) Seconds PTT Ratio 0.8 ABG pH (7.35-7.45) ABG pCO2 (35-46) mmHg ABG pO2 (80-95) mmHg ABG HCO3 (19-24) mmol/L ABG O2 Saturation (90-95) % ABG Base Excess (-9-1.8) mEq/L Reuben Test (Pos) Oxygen Given Sodium 131 L (136-145) mmol/L Potassium 4.4 (3.5-5.1) mmol/L Chloride 101 (98-107) mmol/L Carbon Dioxide 20 L (21-32) mmol/L Anion Gap 10 (3-11) BUN 25 H (6-23) mg/dl Creatinine 0.92 (0.6-1.2) mg/dl Est Cr Clr Drug Dosing Not Reportable Est GFR ( Amer) 68.2 ml/min Est GFR (Non-Af Amer) 58.8 ml/min BUN/Creatinine Ratio 27.2 H (10-20) Glucose 182 H (70-99(Fasting)) mg/dl POC Glucose 161 H (70-99) mg/dl Lactate (0.4-2.0) mmol/L Calcium 8.2 L (8.6-10.3) mg/dl Magnesium 1.8 (1.7-2.4) mg/dl Total Bilirubin 0.5 (0.2-1.0) mg/dl AST 11 L (13-39) U/L ALT 6 L (7-52) U/L Alkaline Phosphatase 51 (34-104) U/L Troponin I High Sens 25.4 H (0-14) pg/ml C-Reactive Protein (0-0.5) mg/dl Total Protein 6.0 (6.0-8.3) gm/dl Albumin 3.1 L (3.4-5.0) gm/dl Globulin 2.9 (2.5-4.0) gm/dl Albumin/Globulin Ratio 1.1 (0.9-2) Procalcitonin 0.03 (0-0.5) ng/ml Urine Color Yellow Urine Appearance Clear (Clear) Urine pH 6.0 (4.5-7.5) Ur Specific [place] 1.031 H (1.000-1.030) Urine Protein 3+ H (Negative) Urine Glucose (UA) 1+ H (Negative) Urine Ketones Negative (Negative) Urine Blood 1+ H (Negative) Urine Nitrite Positive A (Negative) Urine Bilirubin Negative (Negative) Urine Urobilinogen Negative (Negative) Ur Leukocyte Esterase Negative (Negative) Urine WBC (Auto) 5-10 H (0-5) /hpf Urine RBC (Auto) 0-4 (0-4) /hpf U Hyaline Cast (Auto) 0 (0-5) /lpf U Epithel Cells (Auto) >30 H (0-5) /lpf Urine Bacteria (Auto) 4+ H (Negative) Ur Renal Epithelial Cell Not Reportable Blood Type AB Positive Antibody Screen NEGATIVE 05/27/23 05/27/23 Range/Units 17:45 18:52 WBC (4.8-10.8) K/ul RBC (4.20-5.40) M/uL Hgb (12.0-16.0) g/dl Hct (37.0-47.0) % MCV (80.0-100.0) fL MCH (25.0-34.0) pg MCHC (32.0-36.0) g/dL RDW Std Deviation (36.4-46.3) fL RDW Coeff of Layton (11.5-14.5) % Plt Count (130-400) K/uL MPV (9.4-12.4) fL Immature Gran % (Auto) % Neut % (Auto) % Lymph % (Auto) % Gilmer % (Auto) % Eos % (Auto) % Baso % (Auto) % Neut # (Auto) (1.40-6.50) K/uL Lymph # (Auto) (1.20-3.40) K/uL Gilmer # (Auto) (0.11-0.59) K/uL Eos # (Auto) (0.00-0.50) K/uL Baso # (Auto) (0.00-0.20) K/uL Immature Gran # (Auto) (0.01-0.20) K/uL ESR (0-30) mm/hr PT (9.0-12.0) Seconds INR (0.9-1.1) APTT (21-31) Seconds PTT Ratio ABG pH 7.35 (7.35-7.45) ABG pCO2 36 (35-46) mmHg ABG pO2 72 L (80-95) mmHg ABG HCO3 20 (19-24) mmol/L ABG O2 Saturation 95.0 (90-95) % ABG Base Excess -5.1 (-9-1.8) mEq/L Reuben Test Pos (Pos) Oxygen Given room air Sodium (136-145) mmol/L Potassium (3.5-5.1) mmol/L Chloride (98-107) mmol/L Carbon Dioxide (21-32) mmol/L Anion Gap (3-11) BUN (6-23) mg/dl Creatinine (0.6-1.2) mg/dl Est Cr Clr Drug Dosing Est GFR ( Amer) ml/min Est GFR (Non-Af Amer) ml/min BUN/Creatinine Ratio (10-20) Glucose (70-99(Fasting)) mg/dl POC Glucose (70-99) mg/dl Lactate 3.3 H* (0.4-2.0) mmol/L Calcium (8.6-10.3) mg/dl Magnesium (1.7-2.4) mg/dl Total Bilirubin (0.2-1.0) mg/dl AST (13-39) U/L ALT (7-52) U/L Alkaline Phosphatase (34-104) U/L Troponin I High Sens 751.5 H* D (0-14) pg/ml C-Reactive Protein 1.37 H (0-0.5) mg/dl Total Protein (6.0-8.3) gm/dl Albumin (3.4-5.0) gm/dl Globulin (2.5-4.0) gm/dl Albumin/Globulin Ratio (0.9-2) Procalcitonin (0-0.5) ng/ml Urine Color Urine Appearance (Clear) Urine pH (4.5-7.5) Ur Specific [place] (1.000-1.030) Urine Protein (Negative) Urine Glucose (UA) (Negative) Urine Ketones (Negative) Urine Blood (Negative) Urine Nitrite (Negative) Urine Bilirubin (Negative) Urine Urobilinogen (Negative) Ur Leukocyte Esterase (Negative) Urine WBC (Auto) (0-5) /hpf Urine RBC (Auto) (0-4) /hpf U Hyaline Cast (Auto) (0-5) /lpf U Epithel Cells (Auto) (0-5) /lpf Urine Bacteria (Auto) (Negative) Ur Renal Epithelial Cell Blood Type Antibody Screen Imaging Data Radiologist's Impression: Chest X-Ray 05/27/23 16:09 SINGLE VIEW CHEST CLINICAL HISTORY: Neurological deficit. Stroke like symptoms. FINDINGS: An AP, portable, upright chest radiograph is compared to study dated 10/26/2021. The heart is enlarged. There is pulmonary vascular congestion. Scarring/atelectasis is noted at the lung bases. No airspace consolidation or large pleural effusion is identified. No pneumothorax is seen. The skeletal structures are osteopenic. The bony thorax is grossly intact. Cholecystectomy clips are seen in the right upper quadrant. IMPRESSION: 1. Cardiomegaly with pulmonary vascular congestion. 2. No airspace consolidation or large pleural effusion is identified. ACT 112: Negative or not required by law. Electronically signed by: Gumaro Herr M.D. 05/27/2023 7:[address] 05/27/23 16:[address] OF THE BRAIN; CT ANGIOGRAM OF THE BRAIN; CT ANGIOGRAM OF THE NECK CLINICAL HISTORY: Neurological deficit. Stroke like symptoms. COMPARISON STUDY: CT of the brain dated 05/21/2023. TECHNIQUE: Unenhanced axial CT scan of the brain is performed. Subsequently, following the IV administration of 117 of Optiray 320, CT angiogram of the head and neck was performed from the aortic arch to the vertex. Images are reviewed in the axial, sagittal, and coronal planes. 3-D MIPS images are created and assessed. IV contrast was administered without complication. All measurements were calculated based on NASCET criteria. A dose lowering technique was utilized adhering to the principles of ALARA. The unenhanced CT scan of the brain was performed twice due to motion artifact. The examination are motion compromised. The CT angiogram of the brain is significantly motion compromised. CT DOSE: 2729.8 mGy.cm FINDINGS: Brain parenchyma: There is an acute subdural hemorrhage along the right convexity. This measures up to 6 mm diameter. There is no associated mass effect. No additional foci of acute hemorrhage are identified. There is age- related involutional change noting moderate to advanced confluent subcortical and periventricular microangiopathic disease. There is no midline shift or evidence of acute territorial ischemia by CT criteria. There is no evidence of enhancing mass lesion on the angiogram phase images. The ventricles, sulci, and cisterns are prominent secondary to involutional change. Lux-white matter differentiation is preserved. No extra-axial fluid collection is seen. Thoracic aorta: There is atherosclerotic calcification of the thoracic aorta. Visualized portions of the thoracic aorta are normal in caliber. The aortic arch demonstrates standard 3-vessel anatomy. Right carotid arterial system: The right common carotid artery is widely patent, as are the right internal and external carotid arteries. Atherosclerotic plaque is noted in the carotid bulb. Left carotid arterial system: The left common carotid artery is widely patent noting atherosclerotic plaque and irregularity. Advanced atherosclerotic plaque is seen in the carotid bulb. This causes approximately 75% focal stenosis of the proximal left internal carotid artery as seen on image #196. Remainder of the internal carotid artery is widely patent, as is the left external carotid artery. Vertebral arteries: The left vertebral artery is widely patent. 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 The vertebral arteries are codominant. Subclavian arteries: Widely patent bilaterally. Intracranial vasculature: There is atherosclerotic calcification of the cavernous carotid and vertebral arteries. The internal carotid arteries are patent at the skull base, as are the anterior and middle cerebral arteries bilaterally. The left vertebral artery and the basilar artery are patent. There is short segment thrombosis of the right vertebral artery with reconstituted flow below the basilar. The posterior cerebral arteries are grossly patent but not well assessed due to motion artifact. The left vertebral artery is dominant. There is approximately 50% stenosis of the left cavernous carotid artery seen on image #80. No aneurysm is identified. No focal vessel cutoff is appreciated throughout The intracranial circulation. Jugular veins: Patent bilaterally. Dural sinuses: Patent. Lung apices: Emphysematous change is suspected. Upper lobe lung parenchyma is otherwise clear as imaged. Soft tissues: The visualized pharyngeal soft tissues are normal in appearance noting angiographic phase technique. The oropharyngeal airway appears widely patent. The thyroid gland is mildly enlarged and heterogeneous. The salivary glands are normal in appearance. No cervical lymphadenopathy is seen. Skeletal structures: The skeletal structures are osteopenic. The calvarium appears intact. The cervical spine is maintained multiple spondylosis. Orbits: The bony orbits are intact. Orbital contents are normal as visualized. There are bilateral ocular lens implants. Sinuses and mastoids: There is mild mucosal thickening in the right sphenoid sinus. The remaining paranasal sinuses are clear. The mastoid air cells are well pneumatized. IMPRESSION: 1. There is a small acute subdural hemorrhage along the right convexity. 2. No additional foci of hemorrhage are identified. There is no midline shift or evidence of acute territorial ischemia by CT criteria. 3. 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 This is of indeterminate acuity and may be chronic. An underlying dissection would be impossible to exclude. 4. The remaining intracranial vessels appear patent. Note that the CT angiogram of the brain is severely motion compromised. 5. 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 6. There is approximately 75% focal stenosis at the origin of the left internal carotid artery. 7. The right carotid system and the left vertebral artery are patent. Findings of an acute subdural hemorrhage were reported to Dr. Gregg in the Emergency Department at the time of interpretation. ACT 112: Negative or not required by law. Electronically signed by: Gumaro Herr M.D. 05/27/2023 4:51 PM Head CTA 05/27/23 16:[address] OF THE BRAIN; CT ANGIOGRAM OF THE BRAIN; CT ANGIOGRAM OF THE NECK CLINICAL HISTORY: Neurological deficit. Stroke like symptoms. COMPARISON STUDY: CT of the brain dated 05/21/2023. TECHNIQUE: Unenhanced axial CT scan of the brain is performed. Subsequently, following the IV administration of 117 of Optiray 320, CT angiogram of the head and neck was performed from the aortic arch to the vertex. Images are reviewed in the axial, sagittal, and coronal planes. 3-D MIPS images are created and assessed. IV contrast was administered without complication. All measurements were calculated based on NASCET criteria. A dose lowering technique was utilized adhering to the principles of ALARA. The unenhanced CT scan of the brain was performed twice due to motion artifact. The examination are motion compromised. The CT angiogram of the brain is significantly motion compromised. CT DOSE: 2729.8 mGy.cm FINDINGS: Brain parenchyma: There is an acute subdural hemorrhage along the right convexity. This measures up to 6 mm diameter. There is no associated mass effect. No additional foci of acute hemorrhage are identified. There is age- related involutional change noting moderate to advanced confluent subcortical and periventricular microangiopathic disease. There is no midline shift or evidence of acute territorial ischemia by CT criteria. There is no evidence of enhancing mass lesion on the angiogram phase images. The ventricles, sulci, and cisterns are prominent secondary to involutional change. Lux-white matter differentiation is preserved. No extra-axial fluid collection is seen. Thoracic aorta: There is atherosclerotic calcification of the thoracic aorta. Visualized portions of the thoracic aorta are normal in caliber. The aortic arch demonstrates standard 3-vessel anatomy. Right carotid arterial system: The right common carotid artery is widely patent, as are the right internal and external carotid arteries. Atherosclerotic plaque is noted in the carotid bulb. Left carotid arterial system: The left common carotid artery is widely patent noting atherosclerotic plaque and irregularity. Advanced atherosclerotic plaque is seen in the carotid bulb. This causes approximately 75% focal stenosis of the proximal left internal carotid artery as seen on image #196. Remainder of the internal carotid artery is widely patent, as is the left external carotid artery. Vertebral arteries: The left vertebral artery is widely patent. 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 The vertebral arteries are codominant. Subclavian arteries: Widely patent bilaterally. Intracranial vasculature: There is atherosclerotic calcification of the cavernous carotid and vertebral arteries. The internal carotid arteries are patent at the skull base, as are the anterior and middle cerebral arteries bilaterally. The left vertebral artery and the basilar artery are patent. There is short segment thrombosis of the right vertebral artery with reconstituted flow below the basilar. The posterior cerebral arteries are grossly patent but not well assessed due to motion artifact. The left vertebral artery is dominant. There is approximately 50% stenosis of the left cavernous carotid artery seen on image #80. No aneurysm is identified. No focal vessel cutoff is appreciated throughout The intracranial circulation. Jugular veins: Patent bilaterally. Dural sinuses: Patent. Lung apices: Emphysematous change is suspected. Upper lobe lung parenchyma is otherwise clear as imaged. Soft tissues: The visualized pharyngeal soft tissues are normal in appearance noting angiographic phase technique. The oropharyngeal airway appears widely patent. The thyroid gland is mildly enlarged and heterogeneous. The salivary glands are normal in appearance. No cervical lymphadenopathy is seen. Skeletal structures: The skeletal structures are osteopenic. The calvarium appears intact. The cervical spine is maintained multiple spondylosis. Orbits: The bony orbits are intact. Orbital contents are normal as visualized. There are bilateral ocular lens implants. Sinuses and mastoids: There is mild mucosal thickening in the right sphenoid sinus. The remaining paranasal sinuses are clear. The mastoid air cells are well pneumatized. IMPRESSION: 1. There is a small acute subdural hemorrhage along the right convexity. 2. No additional foci of hemorrhage are identified. There is no midline shift or evidence of acute territorial ischemia by CT criteria. 3. 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 This is of indeterminate acuity and may be chronic. An underlying dissection would be impossible to exclude. 4. The remaining intracranial vessels appear patent. Note that the CT angiogram of the brain is severely motion compromised. 5. 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 6. There is approximately 75% focal stenosis at the origin of the left internal carotid artery. 7. The right carotid system and the left vertebral artery are patent. Findings of an acute subdural hemorrhage were reported to Dr. Gregg in the Emergency Department at the time of interpretation. ACT 112: Negative or not required by law. Electronically signed by: Gumaro Herr M.D. 05/27/2023 4:51 PM Neck CTA 05/27/23 16:[address] OF THE BRAIN; CT ANGIOGRAM OF THE BRAIN; CT ANGIOGRAM OF THE NECK CLINICAL HISTORY: Neurological deficit. Stroke like symptoms. COMPARISON STUDY: CT of the brain dated 05/21/2023. TECHNIQUE: Unenhanced axial CT scan of the brain is performed. Subsequently, following the IV administration of 117 of Optiray 320, CT angiogram of the head and neck was performed from the aortic arch to the vertex. Images are reviewed in the axial, sagittal, and coronal planes. 3-D MIPS images are created and assessed. IV contrast was administered without complication. All measurements were calculated based on NASCET criteria. A dose lowering technique was utilized adhering to the principles of ALARA. The unenhanced CT scan of the brain was performed twice due to motion artifact. The examination are motion compromised. The CT angiogram of the brain is significantly motion compromised. CT DOSE: 2729.8 mGy.cm FINDINGS: Brain parenchyma: There is an acute subdural hemorrhage along the right convexity. This measures up to 6 mm diameter. There is no associated mass effect. No additional foci of acute hemorrhage are identified. There is age- related involutional change noting moderate to advanced confluent subcortical and periventricular microangiopathic disease. There is no midline shift or evidence of acute territorial ischemia by CT criteria. There is no evidence of enhancing mass lesion on the angiogram phase images. The ventricles, sulci, and cisterns are prominent secondary to involutional change. Lux-white matter differentiation is preserved. No extra-axial fluid collection is seen. Thoracic aorta: There is atherosclerotic calcification of the thoracic aorta. Visualized portions of the thoracic aorta are normal in caliber. The aortic arch demonstrates standard 3-vessel anatomy. Right carotid arterial system: The right common carotid artery is widely patent, as are the right internal and external carotid arteries. Atherosclerotic plaque is noted in the carotid bulb. Left carotid arterial system: The left common carotid artery is widely patent noting atherosclerotic plaque and irregularity. Advanced atherosclerotic plaque is seen in the carotid bulb. This causes approximately 75% focal stenosis of the proximal left internal carotid artery as seen on image #196. Remainder of the internal carotid artery is widely patent, as is the left external carotid artery. Vertebral arteries: The left vertebral artery is widely patent. 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 The vertebral arteries are codominant. Subclavian arteries: Widely patent bilaterally. Intracranial vasculature: There is atherosclerotic calcification of the cavernous carotid and vertebral arteries. The internal carotid arteries are patent at the skull base, as are the anterior and middle cerebral arteries bilaterally. The left vertebral artery and the basilar artery are patent. There is short segment thrombosis of the right vertebral artery with reconstituted flow below the basilar. The posterior cerebral arteries are grossly patent but not well assessed due to motion artifact. The left vertebral artery is dominant. There is approximately 50% stenosis of the left cavernous carotid artery seen on image #80. No aneurysm is identified. No focal vessel cutoff is appreciated throughout The intracranial circulation. Jugular veins: Patent bilaterally. Dural sinuses: Patent. Lung apices: Emphysematous change is suspected. Upper lobe lung parenchyma is otherwise clear as imaged. Soft tissues: The visualized pharyngeal soft tissues are normal in appearance noting angiographic phase technique. The oropharyngeal airway appears widely patent. The thyroid gland is mildly enlarged and heterogeneous. The salivary glands are normal in appearance. No cervical lymphadenopathy is seen. Skeletal structures: The skeletal structures are osteopenic. The calvarium appears intact. The cervical spine is maintained multiple spondylosis. Orbits: The bony orbits are intact. Orbital contents are normal as visualized. There are bilateral ocular lens implants. Sinuses and mastoids: There is mild mucosal thickening in the right sphenoid sinus. The remaining paranasal sinuses are clear. The mastoid air cells are well pneumatized. IMPRESSION: 1. There is a small acute subdural hemorrhage along the right convexity. 2. No additional foci of hemorrhage are identified. There is no midline shift or evidence of acute territorial ischemia by CT criteria. 3. 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 This is of indeterminate acuity and may be chronic. An underlying dissection would be impossible to exclude. 4. The remaining intracranial vessels appear patent. Note that the CT angiogram of the brain is severely motion compromised. 5. 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 6. There is approximately 75% focal stenosis at the origin of the left internal carotid artery. 7. The right carotid system and the left vertebral artery are patent. Findings of an acute subdural hemorrhage were reported to Dr. Gregg in the Emergency Department at the time of interpretation. ACT 112: Negative or not required by law. Electronically signed by: Gumaro Herr M.D. 05/27/2023 4:51 PM [facility] Narrative 1600: Call received from EMS. Stroke alert called. 1614: The patient was taken straight to CT and the patient started vomiting while on the CT table. 4 of Zofran was ordered for the patient. CT of the head viewed by me did not show any ICH, chronically dilated ventricles in her brain which were there on previous CT scans. 1635: Received a message from Dr. Ruiz radiology the patient has a right- sided subdural hematoma. Discussed with family, and adult children at bedside. They confirm that the patient is DNR/DNI and the patient would not want any heroic measures including no surgical procedures, no mechanical ventilation, no chest compressions, no defibrillation's. Given this we will speak with the [facility] team to have them evaluate the patient for admission as there be no benefit to transfer as the patient does not want any heroic measures to be performed according to the family. All of the family are in agreement on this matter. 1650: Discussed the case with Dr. Pierce [facility] will evaluate the patient for admission. Patient hypertensive labetalol ordered for the patient. 1710: Blood pressure improved with labetalol. Impression & Plan SDH (subdural hematoma) Discharge Plan Visit Data Chief Complaint: Stroke Alert ED Provider: Dalton Gregg Discharge Problem: SDH (subdural hematoma) Patient Disposition: Admitted As Inpatient Forms Stand Alone Forms: My [facility] Prescriptions Prescriptions: No Action cholecalciferol (vitamin D3) 25 mcg (1,000 unit) capsule 1,000 unit PO DAILY Qty: 90 1RF omeprazole 40 mg capsule,delayed release(DR/EC) 40 mg PO DAILY Qty: 90 1RF famotidine 40 mg tablet 40 mg PO DAILY Qty: 90 3RF albuterol sulfate 90 mcg/actuation HFA aerosol inhaler 2 puff inhalation Q4H PRN (Reason: Shortness Of Breath Or Wheezing) Qty: 3 3RF memantine 10 mg tablet 10 mg PO BID Qty: 180 3RF coenzyme Q10 100 mg capsule 100 mg PO DAILY nitroglycerin 0.4 mg tablet, sublingual 0.4 mg SL Q5M PRN (Reason: Chest Pain) Qty: 15 cranberry extract [Cranberry Concentrate] 500 mg capsule 500 mg PO DAILY loratadine 10 mg tablet 10 mg PO DAILY docusate sodium 100 mg capsule 100 mg PO DAILY cyanocobalamin (vitamin B-12) 1,000 mcg tablet 1,000 mcg PO DAILY isosorbide mononitrate 30 mg tablet extended release 24 hr 30 mg PO DAILY Rx Instructions: TAKE 1 TABLET DAILY verapamil 240 mg tablet extended release 240 mg PO HS clonidine HCl 0.1 mg Tablet 0.1 mg PO TID Qty: 0 0RF Rx Instructions: HOLD FOR SBP <90 acetaminophen [Tylenol] 325 mg Tablet 650 mg PO Q4H PRN (Reason: PAIN/FEVER>=100) venlafaxine [Effexor XR] 150 mg Capsule,Extended Release 24hr 150 mg PO QPM aspirin 81 mg Tablet,Chewable 81 mg PO DAILY atorvastatin 10 mg tablet 10 mg PO Q OTHER DAY Referrals Referrals: Sreekanth Mclaughlin MD [Primary Care Provider] -
[2023-05-27] MEDS: NALOXONE HCL 0.4 MG/1 ML VIAL/CARP ONE (16:35)
[2023-05-27] MEDS: ONDANSETRON INJ 2 MG/ML 2 ML VIAL ONE (16:42)
--- NOTE | 2023-05-27 16:53 | CT Scan Report ---
UNENHANCED CT OF THE BRAIN; CT ANGIOGRAM OF THE BRAIN; CT ANGIOGRAM OF THE NECK CLINICAL HISTORY: Neurological deficit. Stroke like symptoms. COMPARISON STUDY: CT of the brain dated 05/21/2023. TECHNIQUE: Unenhanced axial CT scan of the brain is performed. Subsequently, following the IV adminis tration of 117 of Optiray 320, CT angiogram of the head and neck was performed from the aortic arch t o the vertex. Images are reviewed in the axial, sagittal, and coronal planes. 3-D MIPS images are cre ated and assessed. IV contrast was administered without complication. All measurements were calculate d based on NASCET criteria. A dose lowering technique was utilized adhering to the principles of ALA RA. The unenhanced CT scan of the brain was performed twice due to motion artifact. The examination a re motion compromised. The CT angiogram of the brain is significantly motion compromised. CT DOSE: 2729.8 mGy.cm FINDINGS: Brain parenchyma: There is an acute subdural hemorrhage along the right convexity. This measures up t o 6 mm diameter. There is no associated mass effect. No additional foci of acute hemorrhage are ident ified. There is age-related involutional change noting moderate to advanced confluent subcortical and periventricular microangiopathic disease. There is no midline shift or evidence of acute territorial ischemia by CT criteria. There is no evidence of enhancing mass lesion on the angiogram phase images . The ventricles, sulci, and cisterns are prominent secondary to involutional change. Lux-white live er differentiation is preserved. No extra-axial fluid collection is seen. Thoracic aorta: There is atherosclerotic calcification of the thoracic aorta. Visualized portions of the thoracic aorta are normal in caliber. The aortic arch demonstrates standard 3-vessel anatomy. Right carotid arterial system: The right common carotid artery is widely patent, as are the right int ernal and external carotid arteries. Atherosclerotic plaque is noted in the carotid bulb. Left carotid arterial system: The left common carotid artery is widely patent noting atherosclerotic plaque and irregularity. Advanced atherosclerotic plaque is seen in the carotid bulb. This causes quiana roximately 75% focal stenosis of the proximal left internal carotid artery as seen on image #196. Rem ainder of the internal carotid artery is widely patent, as is the left external carotid artery. Vertebral arteries: The left vertebral artery is widely patent. There is complete thrombosis of the d istal right vertebral artery below the skull base seen on axial image #239. The vertebral arteries ar e codominant. Subclavian arteries: Widely patent bilaterally. Intracranial vasculature: There is atherosclerotic calcification of the cavernous carotid and vertebr al arteries. The internal carotid arteries are patent at the skull base, as are the anterior and midd le cerebral arteries bilaterally. The left vertebral artery and the basilar artery are patent. There is short segment thrombosis of the right vertebral artery with reconstituted flow below the basilar. The posterior cerebral arteries are grossly patent but not well assessed due to motion artifact. The left vertebral artery is dominant. There is approximately 50% stenosis of the left cavernous carotid artery seen on image #80. No aneurysm is identified. No focal vessel cutoff is appreciated throughout The intracranial circulation. Jugular veins: Patent bilaterally. Dural sinuses: Patent. Lung apices: Emphysematous change is suspected. Upper lobe lung parenchyma is otherwise clear as imag ed. Soft tissues: The visualized pharyngeal soft tissues are normal in appearance noting angiographic pha se technique. The oropharyngeal airway appears widely patent. The thyroid gland is mildly enlarged an d heterogeneous. The salivary glands are normal in appearance. No cervical lymphadenopathy is seen. Skeletal structures: The skeletal structures are osteopenic. The calvarium appears intact. The cervic al spine is maintained multiple spondylosis. Orbits: The bony orbits are intact. Orbital contents are normal as visualized. There are bilateral oc ular lens implants. Sinuses and mastoids: There is mild mucosal thickening in the right sphenoid sinus. The remaining par anasal sinuses are clear. The mastoid air cells are well pneumatized. IMPRESSION: 1. There is a small acute subdural hemorrhage along the right convexity. 2. No additional foci of hemorrhage are identified. There is no midline shift or evidence of acute te rritorial ischemia by CT criteria. 3. 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 This is of indeterminate acuity and may be chronic. An underlying d issection would be impossible to exclude. 4. The remaining intracranial vessels appear patent. Note that the CT angiogram of the brain is sever ildefonso motion compromised. 5. 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 6. There is approximately 75% focal stenosis at the origin of the left internal carotid artery. 7. The right carotid system and the left vertebral artery are patent. Findings of an acute subdural hemorrhage were reported to Dr. Gregg in the Emergency Department at th e time of interpretation. ACT 112: Negative or not required by law. Electronically signed by: Gumaro Herr M.D. 05/27/2023 4:51 PM
[2023-05-27 16:58] LABS: Basophils # (auto) 0.04 K/uL (0.00-0.20); Basophils % (auto) 0.4 %; Eosinophils # (auto) 0.14 K/uL (0.00-0.50); Eosinophils % (auto) 1.2 %; Hematocrit (blood only) 37.1 % (37.0-47.0); Hemoglobin 11.8 g/dl (12.0-16.0); Immature Granulocytes # (auto) 0.05 K/uL (0.01-0.20); Immature Granulocytes % (auto) 0.4 %; Lymphocytes # (auto) 2.71 K/uL (1.20-3.40); Mean Corpuscular Hemoglobin 29.6 pg (25.0-34.0); Mean Corpuscular Hgb Conc 31.8 g/dL (32.0-36.0); Monocytes # (auto) 0.73 K/uL (0.11-0.59); Monocytes % (auto) 6.5 %; Neutrophils # (auto) 7.63 K/uL (1.40-6.50); Neutrophils % (auto) 67.5 %; Platelet Count 200 K/uL (130-400); RDW Coefficient of Variation 13.7 % (11.5-14.5); RDW Standard Deviation 46.9 fL (36.4-46.3); Red Blood Count 3.99 M/uL (4.20-5.40)
[2023-05-27] MEDS: LABETALOL HCL IV 5 MG/ML 20ML IV STA ×4 (17:00→21:32)
[2023-05-27 17:06] LABS: Alanine Aminotransferase 6 U/L (7-52); Albumin Globulin Ratio 1.1 (0.9-2); Albumin Level 3.1 gm/dl (3.4-5.0); Alkaline Phosphatase 51 U/L (34-104); Anion Gap 10 (3-11); Aspartate Aminotransferase 11 U/L (13-39); BUN Creatinine Ratio 27.2 (10-20); Bilirubin,Total 0.5 mg/dl (0.2-1.0); Blood Urea Nitrogen 25 mg/dl (6-23); Calcium 8.2 mg/dl (8.6-10.3); Carbon Dioxide 20 mmol/L (21-32); Chloride 101 mmol/L (98-107); Est GFR (African American) 68.2 ml/min; Est GFR (Non-African American) 58.8 ml/min; Globulin 2.9 gm/dl (2.5-4.0); Glucose 182 mg/dl (70-99(Fasting)); Magnesium 1.8 mg/dl (1.7-2.4); Potassium 4.4 mmol/L (3.5-5.1); Sodium 131 mmol/L (136-145)
[2023-05-27 17:12] LABS: Troponin I High Sensitivity 25.4 pg/ml (0-14)
[2023-05-27 17:15] LABS: INR 1.1 (0.9-1.1); Partial Thromboplastin Ratio 0.8; Partial Thromboplastin Time 22 Seconds (21-31); Prothrombin Time 11.5 Seconds (9.0-12.0)
[2023-05-27 17:29] LABS: Appearance Urine Clear (Clear); Bacteria Urine Automated 4+ (Negative); Bilirubin Urine Negative (Negative); Blood Urine 1+ (Negative); Cast Urine Automated 0 /lpf (0-5); Color Urine Yellow; Epithelial Cell Urine Auto >30 /lpf (0-5); Glucose Urine UA 1+ (Negative); Ketones Urine Negative (Negative); Leukocyte Esterase Urine Negative (Negative); Nitrite Urine Positive (Negative); Protein Urine 3+ (Negative); RBC Urine Automated 0-4 /hpf (0-4); Specific Gravity Urine 1.031 (1.000-1.030); Urobilinogen Urine Negative (Negative)
[2023-05-27 17:58] LABS: Allen Test Pos (Pos); Base Excess ABG -5.1 mEq/L (-9-1.8); HCO3 ABG 20 mmol/L (19-24); PCO2 ABG 36 mmHg (35-46); PO2 ABG 72 mmHg (80-95); pH ABG 7.35 (7.35-7.45)
[2023-05-27] MEDS: cefTRIAXone SODIUM 2,000 MG in DEXTROSE 5 % MINI-B 50 ML IV SCH (18:52)
--- NOTE | 2023-05-27 19:16 | XRay Report ---
SINGLE VIEW CHEST CLINICAL HISTORY: Neurological deficit. Stroke like symptoms. FINDINGS: An AP, portable, upright chest radiograph is compared to study dated 10/26/2021. The heart i s enlarged. There is pulmonary vascular congestion. Scarring/atelectasis is noted at the lung bases. No airspace consolidation or large pleural effusion is identified. No pneumothorax is seen. The skele christopher structures are osteopenic. The bony thorax is grossly intact. Cholecystectomy clips are seen in t he right upper quadrant. IMPRESSION: 1. Cardiomegaly with pulmonary vascular congestion. 2. No airspace consolidation or large pleural effusion is identified. ACT 112: Negative or not required by law. Electronically signed by: Gumaro Herr M.D. 05/27/2023 7:15 PM
--- OUTSIDE RECORDS SUMMARY | 2023-05-27 19:23 | External Medical Summary | Summary of Care ---
Author Name Unknown Organization [facility] Address [address] [place] [address] Phone [phone] Care Team Providers Care Carbider Name Role Phone Robbie Adams MD Primary Care Provider + [phone] Encounter Details Date Type Department Care Team (Late st Contact Info) Description 05/26/2023 Telephone [facility], [address] [place] [address] Cassandra White PA-C [address] [place] [address] [place] [address] Allergies Active Allergy Reactions Criticality Noted Date Comments Demerol Nausea/vomiting 03/16/2007 Hydrocodone Other (Please comment) 07/30/2020 Fatigue, Imbalance Macrodantin Rash 03/16/2007 Nsaids 03/16/2007 documented as of this encounter (statuses as of 05/26/2023) Medications Medication Sig Dispensed Refills Start Date End Date Status OMEPRAZOLE 20 MG PO CPDR once daily 0 Active UROQID #2 500-500 MG PO TABS once daily 0 Active DETROL LA 4 MG PO CP24 once daily 0 Ac tive NEURONTIN 600 MG PO TABS twice daily 0 Active AMITRIPTYLINE HCL 25 MG PO TABS once daily 0 Active ZOCOR 10 MG PO TABS one tab by mouth daily 0 Active ZOLOFT 50 MG PO TABS 1 TABLET DAILY 0 Active DOCUSATE SODIUM 100 MG PO TABS 1 tablet daily 0 Active ADVAIR DISKUS 250-50 MCG/DOSE IN MISC twice daily 0 Active ALBUTEROL 90 MCG/ACT IN AERS as needed 0 Active ASTELIN 137 MCG/SPRAY NA SOLN 2 sprays each nasal passage twice daily 0 Active MECLIZINE HCL 25 MG PO TABS 1 TABLET 3 TIMES DAILY NEEDED 0 Active CRANBERRY 500 MG PO CAPS once daily 0 Active AYR SALINE NASAL NA GEL None Entered 0 Active MICARDIS HCT 40-12.5 MG PO TABS once daily 0 Active documented as of this encounter (statuses as of 05/26/2023) Active Problems Problem Noted Date Diagnosed Date Chronic rhinitis 03/16/2007 Deviated nasal septum 03/16/2007 Closed fracture of nasal bone 03/16/2007 Overview: ICD-10 update of inactive term Other chronic sinusitis 03/16/2007 documented as of this encounter (statuses as of 05/26/2023) Social History Tobacco Use Types Packs/Day Years Used Date Smoking Tobacco: Former Cigarettes 1 20 0 04/03/1975 - 04/03/1995 Alcohol Use Standard Drinks/Week Comments No 0 (1 standard drink = 0.6 oz pur e alcohol) Sex and Gender Information Value Date Recorded Sex Assigned at Not on file Gender Identity Not on file Sexual Orientation Not on file documented as of this encounter Miscellaneous Notes * Telephone Encounter - Cassandra White PA-C - 05/26/2023 5:34 PM EST Admitted to [facility] from [facility] today Admission orders reviewed and signed. I have reviewed the patients controlled substance dispensing history in the Prescription Drug Monitoring Program in compliance with the [facility] regulations before prescribing a controlled substance. Last Tox Screen Results: No results found for this or any previous visit. Cassandra White PA-C documented in this encounter Plan of Treatment Health Maintenance Due Date Last Done Comments DXA Scan 1942 Depression Screening 1954 DTaP,Tdap,and Td Vaccines (1 - Tdap) 1961 Zoster Vaccines (1 of 2) 1992 Pneumococcal Vaccine: 65+ Ye ars (1 of 1 - PCV) 07/13/2007 COVID-19 Vaccine ( - 2022-2 4 season) 2022 Influenza Vaccine (FLU shot) (#1) 2022 GARDASIL-HPV IMMUNIZATION SERIES Aged Out No longer eligible based on patient's age to complete this topic Hepatitis B Aged Out No longer eligi ble based on patient's age to complete this topic MENINGOCOCCAL (MENACTRA/MENVEO) Aged Out No longer eligible based on patient's age to complete this topic documented as of this encounter Medical Devices Not on filedocumented as of this encounter Care Teams Carbider Relationship Specialty Start Date End Date Robbie Adams MD PCP - General 03/16/07 documented as of this encounter
[2023-05-27] MEDS: PLASMA-LYTE A 1,000 ML IV SCH (19:24)
[2023-05-27 19:29] LABS: C Reactive Protein 1.37 mg/dl (0-0.5)
[2023-05-27 19:40] LABS: Troponin I High Sensitivity 751.5 pg/ml (0-14)
--- NOTE | 2023-05-27 20:33 | History & Physical Report ---
Date of Service May 27, 2023 Assessment & Plan (1) Goals of care, counseling/discussion: Plan: Discussed concerning disordered breathing with periods of apnea. Potential reversible cause of UTI but prognosis is very poor. DNR/DNI confirmed with her at bedside. We discussed treatment in a tertiary care center experienced at managing subdural hematoma vs. staying here and declined transfer. She is not for any neurosurgical intervention. We discussed treatment of blood pressure and UTI with need for frequent monitoring, blood tests and repeat imaging vs. full comfort care at this time and he wishes she is still treated with antibiotics and anti-hypertensives. If she was to get worse or bleed significantly increasing likely to switch to full comfort care. (2) Unresponsive episode: Plan: Unclear if cause subdural vs. cardiac (ACS/arrhythmia) vs. seizure vs infection. Subdural small, unclear if acute on from prior fall, will repeat CT head to see if getting larger and need to move towards comfort care. Possibility of ischemic stroke given only small subdural although MRI would not slip box changer at this stage therefore deferred. Troponin significantly increased with EKG changes. Even if ACS - avoiding antiplatelets, anticoagulation due to subdural. If she is stable tomorrow could consider TTE but intervention would be medical. Arrhythmia remains a possibility given sudden unexplained collapse although no current rhythm abnormalities on the monitor while in the ER. No apparent current seizure activity. Ideally would start prophylaxis with Keppra but given decreased GCS I am concerned this will make her more sedated at this time and likelihood of seizure from such a small bleed is low therefore deferred on admission. Pulmonary embolism remains a possibility in which case would not be a survivable event given concurrent subdural, therefore will get CT for PE as this would mean switching goals towards palliative care. Possible UTI - doubtful this is the sole cause of a sudden loss of responsiveness. GCS 10 (previously opening eyes spontaneously E4V2M4) when first seen, currently 7 (E1V2M4), she is currently swallow saliva but her optimal treatment would be intubation which is not in line with her goals of care therefore will monitor worsening. Pupils are fixed but she has longstanding blindness. (3) SDH (subdural hematoma): Plan: Repeat CT head in 4 hours for prognostic purposes. She is not for any surgical intervention. (4) CVA, old, hemiparesis: Plan: Residual right sided deficit (5) Hypertension: Plan: Unable to safely take PO meds at this time. Labetalol 10mg q1h PRN for sBP > 180, dBP > 120 (6) GERD without esophagitis: Plan: Switch omeprazole to pantoprazole 40mg IV daily (7) Elevated troponin: (8) Alzheimer's dementia: Plan VTE Prophylaxis - SCDs Diet - NPO Disposition - admit to PCU Admission and Anticipated Discharge Date Admission Date: May 27, 2023 History of Present Illness Chief Complaint: Unresponsiveness Primary Care Provider: Sreekanth Mclaughlin MD Sylvia Cifuentes is an 82-year-old female who presents to the ER in an unresponsive state. She was just discharged yesterday after a fall with chronic right foot drop from prior CVA - she was discharged to [facility] for further rehabilitation. Her reports she was her normal self in the morning but 15:15 after having a bowel movement she was at the bathroom sink washing her hands and suddenly felt like she was going to faint as she alerted her . She was sitting in her wheelchair and her head suddenly just went back and she became unresponsive. On discussion with the nurse at [facility] she reports only witness was the but shortly afterwards she was assessed in the bathroom and was completely unresponsive therefore EMS were called. Allergies Allergy/AdvReac Type Severity Reaction Status Date / Time acetaminophen [From Vicodin] Allergy Severe shortness Verified 05/27/23 17:06 of breath fesoterodine [From Toviaz] Allergy Severe difficult Verified 05/27/23 17:06 swallowing; dry mouth; loss of appetite hydrocodone [From Vicodin] Allergy Severe shortness Verified 05/27/23 17:06 of breath topiramate [From Topamax] Allergy Severe dyspepsia Verified 05/27/23 17:06 nitrofurantoin Allergy Intermediate RASH Verified 05/27/23 17:06 NSAIDS (Non-Steroidal Allergy Unknown Unknown Verified 05/27/23 17:06 Anti-Inflamma onabotulinumtoxinA AdvReac Severe Unconscious Verified 05/27/23 17:06 [From Botox] erenumab-aooe AdvReac Intermediate CONSTIPATIO Verified 05/27/23 17:06 [From Aimovig Autoinjector] N mirabegron [From Myrbetriq] AdvReac Intermediate Hypertensio Verified 05/27/23 17:06 n simvastatin [From Zocor] AdvReac Intermediate Muscle Pain Verified 05/27/23 17:06 meperidine AdvReac Mild NAUSEA Verified 05/27/23 17:06 Home Medications Medication Instructions Recorded Confirmed Type coenzyme Q10 100 mg capsule 100 mg PO DAILY 11/21/18 05/27/23 History cranberry extract 500 mg capsule 500 mg PO DAILY 11/21/18 05/27/23 History (Cranberry Concentrate) cyanocobalamin (vitamin B-12) 1,000 mcg PO DAILY 11/21/18 05/27/23 History 1,000 mcg tablet docusate sodium 100 mg capsule 100 mg PO DAILY 11/21/18 05/27/23 History loratadine 10 mg tablet 10 mg PO DAILY 11/21/18 05/27/23 History nitroglycerin 0.4 mg sublingual 0.4 mg sublingual Q5M PRN Chest 11/21/18 05/27/23 History tablet Pain #15 tabs cholecalciferol (vitamin D3) 25 1,000 unit PO DAILY #90 caps 04/13/22 05/27/23 Rx mcg (1,000 unit) capsule albuterol sulfate 90 mcg/actuation 2 puff inhalation Q4H PRN 05/30/22 05/27/23 Rx aerosol inhaler Shortness Of Breath Or Wheezing #3 Inhalers omeprazole 40 mg capsule,delayed 40 mg PO DAILY #90 caps 09/27/22 05/27/23 Rx release famotidine 40 mg tablet 40 mg PO DAILY #90 tabs 01/16/23 05/27/23 Rx memantine 10 mg tablet 10 mg PO BID #180 tabs 01/17/23 05/27/23 Rx isosorbide mononitrate 30 mg 30 mg PO DAILY 05/21/23 05/27/23 History tablet,extended release 24 hr verapamil 240 mg tablet,extended 240 mg PO HS 05/21/23 05/27/23 History release clonidine HCl 0.1 mg tablet 0.1 mg PO TID #0 tabs 05/26/23 05/27/23 Rx acetaminophen 325 mg tablet 650 mg PO Q4H PRN PAIN/FEVER>=100 05/27/23 05/27/23 History (Tylenol) aspirin 81 mg chewable tablet 81 mg PO DAILY 05/27/23 05/27/23 History atorvastatin 10 mg tablet 10 mg PO Q OTHER DAY 05/27/23 05/27/23 History venlafaxine 150 mg 150 mg PO QPM 05/27/23 05/27/23 History capsule,extended release 24 hr (Effexor XR) Past Med/Surg History Medical History Left flank pain Gross hematuria Contracture, right ankle Right ankle gives out Migraine with aura and without status migrainosus, not intractable Compression fracture of L2 Dependent edema Head trauma Nephrolithiasis Osteopenia Recurrent UTI (urinary tract infection) Right shoulder pain Antiplatelet or antithrombotic long-term use Cough Arteriosclerotic heart disease (ASHD) Depression GERD without esophagitis Lumbar radiculopathy Other insomnia Vitamin D deficiency CVA, old, hemiparesis Asthma Dyslipidemia Sepsis Nonspecific ST-T wave electrocardiographic changes (02/18/13) Hypophosphatemia Hypomagnesemia Hypokalemia Surgical History S/P cholecystectomy Family History Family/Other Diabetes Heart disease Hypertension Sister Diabetes Brother Diabetes Myocardial infarction Uncle Colorectal cancer Denies family history of Ovarian cancer Prostate cancer Breast cancer Social History Smoking Status: Unknown if ever smoked Second Hand Exposure: Yes; Do You Dip or Chew Tobacco: No; Hx Alcohol Use: No Hx Substance Use: No Preferred Language: Yoruba Communication Ability: Effective Visual Impairment: No Limitations Hearing Ability: 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 [employer] Water Required: No Beliefs That Will Affect Care: None marital status: Current Living Situation: Spouse Current Living Situation Comment: with George current occupational status: disabled Feels Safe at Home: Yes Childhood Exposure to Second-Hand Smoke: Yes Dental Care, Regularly: No Physical Activity Frequency: Does not Exercise Seatbelt Use: always Sunscreen Use: No Assistive Devices: Glasses, Walker and Wheelchair Review of Systems Review of Systems: Unobtainable due to cognitive status Physical Exam Constitutional: well developed; + not well nourished and no acute distress Eyes: + abnormal light reflex; + no PERRL (pup ils fixed) and normal pupil size ENMT: Mouth: + dry oral mucous membranes Neck: trachea midline, no thyromegaly Respiratory: + abnormal respiratory pattern (periods of apnea) Auscultation: + rhonchi; breath sounds present, no diminished lung sounds, no crackles and no wheezes Cardiovascular: Rate/Rhythm: regular rate and regular rhythm Heart Sounds: no murmur Extremities: normal capillary refill; no calf tenderness and no pedal edema Gastrointestinal (Abdomen): normal bowel sounds, soft, nontender, no hepatosplenomegaly Skin: no rashes, warm and dry (no areas of cellulitis noted) Neurologic: + does not move all extremities (not fol lowing any commands) and + not awake (GCS 10 (E4V2M4)) Psychiatric: Orientation: + not alert Results & Data Results & Data Vital Signs (Past 12 Hours) Vital Signs Pulse Resp BP Pulse Ox O2 Del Method O2 Flow Rate 05/27/23 20:20 77 05/27/23 19:57 87 202/140 H 05/27/23 19:31 187/98 H 05/27/23 19:31 91 H 30 H 96 05/27/23 19:30 89 26 H 98 05/27/23 19:20 87 25 H 98 05/27/23 19:15 167/112 H 05/27/23 19:15 83 24 97 05/27/23 19:14 82 05/27/23 19:14 153/83 H 05/27/23 19:10 84 23 98 05/27/23 19:00 79 24 98 05/27/23 19:00 156/83 H 05/27/23 19:00 156/83 H 05/27/23 18:50 84 26 H 97 05/27/23 18:40 78 26 H 97 05/27/23 18:31 80 29 H 177/76 H 98 Nasal Cannula 2 05/27/23 18:30 80 26 H 99 05/27/23 18:15 79 26 H 151/116 H 94 Nasal Cannula 2 05/27/23 18:10 78 26 H 96 Nasal Cannula 2 05/27/23 18:05 86 27 H 132/105 H 98 Nasal Cannula 2 05/27/23 18:00 84 34 H 193/119 H 97 Nasal Cannula 2 05/27/23 17:50 80 L Nasal Cannula 0 05/27/23 17:50 86 18 80 L Room Air 05/27/23 17:47 84 27 H 179/112 H 94 05/27/23 17:31 82 27 H 185/109 H 94 05/27/23 17:16 81 28 H 133/108 H 94 05/27/23 17:09 81 44 H 146/85 H 05/27/23 16:58 112 H 19 215/114 H 05/27/23 16:57 112 H 05/27/23 16:46 105 H 20 203/153 H 93 05/27/23 16:34 110 H 26 H 148/116 H 92 05/27/23 16:31 110 H 24 172/141 H 94 05/27/23 16:29 110 H 22 172/141 H 91 Room Air 05/27/23 16:28 111 H 19 97/74 L 93 Laboratory Results Abnormal lab results 05/27/23 05/27/23 05/27/23 Range/Units 16:27 16:33 17:20 WBC 11.30 H (4.8-10.8) K/ul RBC 3.99 L (4.20-5.40) M/uL Hgb 11.8 L (12.0-16.0) g/dl MCHC 31.8 L (32.0-36.0) g/dL RDW Std Deviation 46.9 H (36.4-46.3) fL Neut # (Auto) 7.63 H (1.40-6.50) K/uL Pershing # (Auto) 0.73 H (0.11-0.59) K/uL ABG pO2 (80-95) mmHg Sodium 131 L (136-145) mmol/L Carbon Dioxide 20 L (21-32) mmol/L BUN 25 H (6-23) mg/dl BUN/Creatinine Ratio 27.2 H (10-20) Glucose 182 H (70-99(Fasting)) mg/dl POC Glucose 161 H (70-99) mg/dl Lactate (0.4-2.0) mmol/L Calcium 8.2 L (8.6-10.3) mg/dl AST 11 L (13-39) U/L ALT 6 L (7-52) U/L Troponin I High Sens 25.4 H (0-14) pg/ml C-Reactive Protein (0-0.5) mg/dl Albumin 3.1 L (3.4-5.0) gm/dl Ur Specific Huron 1.031 H (1.000-1.030) Urine Protein 3+ H (Negative) Urine Glucose (UA) 1+ H (Negative) Urine Blood 1+ H (Negative) Urine Nitrite Positive A (Negative) Urine WBC (Auto) 5-10 H (0-5) /hpf U Epithel Cells (Auto) >30 H (0-5) /lpf Urine Bacteria (Auto) 4+ H (Negative) 05/27/23 05/27/23 05/27/23 Range/Units 17:45 18:52 23:21 WBC (4.8-10.8) K/ul RBC (4.20-5.40) M/uL Hgb (12.0-16.0) g/dl MCHC (32.0-36.0) g/dL RDW Std Deviation (36.4-46.3) fL Neut # (Auto) (1.40-6.50) K/uL Pershing # (Auto) (0.11-0.59) K/uL ABG pO2 72 L (80-95) mmHg Sodium (136-145) mmol/L Carbon Dioxide (21-32) mmol/L BUN (6-23) mg/dl BUN/Creatinine Ratio 24.0 H (10-20) Glucose 124 H (70-99(Fasting)) mg/dl POC Glucose (70-99) mg/dl Lactate 3.3 H* (0.4-2.0) mmol/L Calcium (8.6-10.3) mg/dl AST (13-39) U/L ALT (7-52) U/L Troponin I High Sens 751.5 H* D 1806.5 H* D (0-14) pg/ml C-Reactive Protein 1.37 H (0-0.5) mg/dl Albumin (3.4-5.0) gm/dl Ur Specific Huron (1.000-1.030) Urine Protein (Negative) Urine Glucose (UA) (Negative) Urine Blood (Negative) Urine Nitrite (Negative) Urine WBC (Auto) (0-5) /hpf U Epithel Cells (Auto) (0-5) /lpf Urine Bacteria (Auto) (Negative) Diagnostic Findings UNENHANCED CT OF THE BRAIN; CT ANGIOGRAM OF THE BRAIN; CT ANGIOGRAM OF THE NECK CLINICAL HISTORY: Neurological deficit. Stroke like symptoms. COMPARISON STUDY: CT of the brain dated 05/21/2023. TECHNIQUE: Unenhanced axial CT scan of the brain is performed. Subsequently, following the IV administration of 117 of Optiray 320, CT angiogram of the head and neck was performed from the aortic arch to the vertex. Images are reviewed in the axial, sagittal, and coronal planes. 3-D MIPS images are created and assessed. IV contrast was administered without complication. All measurements were calculated based on NASCET criteria. A dose lowering technique was utilized adhering to the principles of ALARA. The unenhanced CT scan of the brain was performed twice due to motion artifact. The examination are motion compromised. The CT angiogram of the brain is significantly motion compromised. CT DOSE: 2729.8 mGy.cm FINDINGS: Brain parenchyma: There is an acute subdural hemorrhage along the right convexity. This measures up to 6 mm diameter. There is no associated mass effect. No additional foci of acute hemorrhage are identified. There is age- related involutional change noting moderate to advanced confluent subcortical and periventricular microangiopathic disease. There is no midline shift or ev idence of acute territorial ischemia by CT criteria. There is no evidence of enhancing mass lesion on the angiogram phase images. The ventricles, sulci, and cisterns are prominent secondary to involutional change. Lux-white matter differentiation is preserved. No extra-axial fluid collection is seen. Thoracic aorta: There is atherosclerotic calcification of the thoracic aorta. Visualized portions of the thoracic aorta are normal in caliber. The aortic arch demonstrates standard 3-vessel anatomy. Right carotid arterial system: The right common carotid artery is widely patent, as are the right internal and external carotid arteries. Atherosclerotic plaque is noted in the carotid bulb. Left carotid arterial system: The left common carotid artery is widely patent noting atherosclerotic plaque and irregularity. Advanced atherosclerotic plaque is seen in the carotid bulb. This causes approximately 75% focal stenosis of the proximal left internal carotid artery as seen on image #196. Remainder of the internal carotid artery is widely patent, as is the left external carotid artery. Vertebral arteries: The left vertebral artery is widely patent. 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 The vertebral arteries are codominant. Subclavian arteries: Widely patent bilaterally. Intracranial vasculature: There is atherosclerotic calcification of the cavernous carotid and vertebral arteries. The internal carotid arteries are patent at the skull base, as are the anterior and middle cerebral arteries bilaterally. The left vertebral artery and the basilar artery are patent. There is short segment thrombosis of the right vertebral artery with reconstituted flow below the basilar. The posterior cerebral arteries are grossly patent but not well assessed due to motion artifact. The left vertebral artery is dominant. There is approximately 50% stenosis of the left cavernous carotid artery seen on image #80. No aneurysm is identified. No focal vessel cutoff is appreciated throughout The intracranial circulation. Jugular veins: Patent bilaterally. Dural sinuses: Patent. Lung apices: Emphysematous change is suspected. Upper lobe lung parenchyma is otherwise clear as imaged. Soft tissues: The visualized pharyngeal soft tissues are normal in appearance noting angiographic phase technique. The oropharyngeal airway appears widely patent. The thyroid gland is mildly enlarged and heterogeneous. The salivary glands are normal in appearance. No cervical lymphadenopathy is seen. Skeletal structures: The skeletal structures are osteopenic. The calvarium appears intact. The cervical spine is maintained multiple spondylosis. Orbits: The bony orbits are intact. Orbital contents are normal as visualized. There are bilateral ocular lens implants. Sinuses and mastoids: There is mild mucosal thickening in the right sphenoid sinus. The remaining paranasal sinuses are clear. The mastoid air cells are well pneumatized. IMPRESSION: 1. There is a small acute subdural hemorrhage along the right convexity. 2. No additional foci of hemorrhage are identified. There is no midline shift or evidence of acute territorial ischemia by CT criteria. 3. 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 This is of indeterminate acuity and may be chronic. An underlying dissection would be impossible to exclude. 4. The remaining intracranial vessels appear patent. Note that the CT angiogram of the brain is severely motion compromised. 5. 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 6. There is approximately 75% focal stenosis at the origin of the left internal carotid artery. 7. The right carotid system and the left vertebral artery are patent. SINGLE VIEW CHEST CLINICAL HISTORY: Neurological deficit. Stroke like symptoms. FINDINGS: An AP, portable, upright chest radiograph is compared to study dated 10/26/2021. The heart is enlarged. There is pulmonary vascular congestion. Scarring/atelectasis is noted at the lung bases. No airspace consolidation or large pleural effusion is identified. No pneumothorax is seen. The skeletal structures are osteopenic. The bony thorax is grossly intact. Cholecystectomy clips are seen in the right upper quadrant. IMPRESSION: 1. Cardiomegaly with pulmonary vascular congestion. 2. No airspace consolidation or large pleural effusion is identified. Medications Administered ER Medications Given: Ondansetron 4 mg IV Naloxone 0.4 mg ECG Rate (beats per minute): 104 Rhythm: sinus tachycardia Findings: + ST depression (Anterior lateral inferior leads) Comparison ECG Date: from (October 26, 2021) Change: the following changes noted (Widespread ST depression) Code Status & VTE Plan Code Status DNR/DNI VTE Prophylaxis Plan VTE Prophylaxis will be ordered: No PG Care Time/CCT Total # of Minutes Spent Total Time Spent with Patient: Total time spent is greater than 50% in coordination of care (as documented) at patient's floor/unit and/or counseling patient: Coding Level of Care Code 85274 INT INP/OBS CARE 3/75MIN Diagnoses Goals of care, counseling/discussion Z71.89 Unresponsive episode R40.4 SDH (subdural hematoma) S06.5XAA CVA, old, hemiparesis I69.359 Hypertension I10 GERD without esophagitis K21.9 Elevated troponin R79.89 Alzheimer's dementia G30.9; F02.80
--- NOTE | 2023-05-27 21:23 | CT Scan Report ---
Exam(s): CT HEAD Without Contrast EXAM: CT Head Without Intravenous Contrast CLINICAL HISTORY: Reason for exam: ?worsening subdural hematoma. TECHNIQUE: Axial computed tomography images of the head/brain without intravenous contrast. CTDI is 112.83 mGy and DLP is 2107.38 mGy-cm. Automated exposure control was utilized for the study. A dose lowering technique was utilized adhering to the principles of ALARA. COMPARISON: No relevant prior studies available. FINDINGS: No acute intracranial hemorrhage. No midline shift or mass effect. Encephalomalacia in the LEFT frontoparietal lobe, consistent with old infarct. Ex vacuo dilatation of the LEFT lateral ventricle. Age-related cerebral volume loss. Periventricular and subcortical white matter hypoattenuation, consistent with chronic microangiopathy. The visualized orbits appear grossly unremarkable. The calvarium is intact. The visualized paranasal sinuses and mastoid air cells are grossly clear. IMPRESSION: No acute intracranial hemorrhage, midline shift, or mass effect. Encephalomalacia in the LEFT frontoparietal lobe, consistent with old infarct. Ex vacuo dilatation of the LEFT lateral ventricle. Electronically signed by: Paco Patiño MD 05/27/23 21:22 PM
--- NOTE | 2023-05-27 21:28 | CT Scan Report ---
Exam(s): CTA CHEST IV Amt: 115ml EXAM: CT Angiography Chest With Intravenous Contrast CLINICAL HISTORY: Reason for exam: PE. TECHNIQUE: Axial computed tomographic angiography images of the chest with intravenous contrast. CTDI is 38.74 mGy and DLP is 819.67 mGy-cm. Automated exposure control was utilized for the study. A dose lowering technique was utilized adhering to the principles of ALARA. MIP reconstructed images were created and reviewed. COMPARISON: No relevant prior studies available. FINDINGS: Pulmonary arteries: Unremarkable. No acute pulmonary embolism. Aorta: No acute findings. No thoracic aortic aneurysm. Lungs: See below. Pleural space: Trace bilateral pleural effusions. Mild fluid in the RIGHT major fissure. Mild pulmonary vascular congestion at the lung bases. Correlate for CHF. No pneumothorax. Heart: Cardiomegaly. No significant pericardial effusion. No evidence of RV dysfunction. Bones/joints: No acute fracture. No dislocation. Soft tissues: Unremarkable. Lymph nodes: Unremarkable. No enlarged lymph nodes. Gallbladder and bile ducts: Cholecystectomy clips. IMPRESSION: 1. No acute pulmonary embolism. 2. Trace bilateral pleural effusions. Mild fluid in the RIGHT major fissure. Mild pulmonary vascular congestion at the lung bases. Correlate for CHF. Electronically signed by: Paco Patiño MD 05/27/23 21:26 PM
[2023-05-28] MEDS: LABETALOL HCL IV 5 MG/ML 20ML IV PRN ×2 (00:17→03:34)
[2023-05-28 00:26] LABS: Albumin Globulin Ratio 1.1 (0.9-2); Albumin Level 3.8 gm/dl (3.4-5.0); Bilirubin,Total 0.4 mg/dl (0.2-1.0); Calcium 9.1 mg/dl (8.6-10.3); Creatinine Clr Calc Pharmacy 41.3 ml/min; Est GFR (African American) 64.7 ml/min; Est GFR (Non-African American) 55.9 ml/min; Globulin 3.4 gm/dl (2.5-4.0); Potassium 5.1 mmol/L (3.5-5.1); Total Protein 7.2 gm/dl (6.0-8.3); Troponin I High Sensitivity 1806.5 pg/ml (0-14)
[2023-05-28] MEDS ORDERED: LABETALOL HCL IV 5 MG/ML 20ML IV PRN (00:37)
[2023-05-28] MEDS ORDERED: PHARMACIST DISCHARGE MED REC CONSULT PRN (01:30)
[2023-05-28 06:16] LABS: Base Excess VBG 2.7 mEq/L; HCO3 VBG 26 mmol/L; Oxygen Saturation VBG 94.4 %; PCO2 VBG 36 mmHg (38-50); PO2 VBG 67 mmHg; pH VBG 7.47 (7.36-7.41)
[2023-05-28 06:35] LABS: Basophils # (auto) 0.04 K/uL (0.00-0.20); Basophils % (auto) 0.3 %; Hematocrit (blood only) 39.9 % (37.0-47.0); Hemoglobin 12.9 g/dl (12.0-16.0); Immature Granulocytes # (auto) 0.06 K/uL (0.01-0.20); Immature Granulocytes % (auto) 0.5 %; Lymphocytes # (auto) 0.94 K/uL (1.20-3.40); Lymphocytes % (auto) 7.3 %; Mean Corpuscular Hemoglobin 29.2 pg (25.0-34.0); Mean Corpuscular Hgb Conc 32.3 g/dL (32.0-36.0); Mean Corpuscular Volume 90.3 fL (80.0-100.0); Monocytes # (auto) 1.07 K/uL (0.11-0.59); Monocytes % (auto) 8.3 %; Neutrophils # (auto) 10.83 K/uL (1.40-6.50); Neutrophils % (auto) 83.6 %; Platelet Count 192 K/uL (130-400); RDW Coefficient of Variation 14.1 % (11.5-14.5); RDW Standard Deviation 46.3 fL (36.4-46.3); Red Blood Count 4.42 M/uL (4.20-5.40); White Blood Count 12.94 K/ul (4.8-10.8)
[2023-05-28 07:05] LABS: Albumin Globulin Ratio 1.2 (0.9-2); Albumin Level 3.8 gm/dl (3.4-5.0); BUN Creatinine Ratio 24.7 (10-20); Bilirubin,Total 0.5 mg/dl (0.2-1.0); Calcium 9.1 mg/dl (8.6-10.3); Creatinine Clr Calc Pharmacy 41.3 ml/min; Est GFR (African American) 63.9 ml/min; Est GFR (Non-African American) 55.2 ml/min; Globulin 3.2 gm/dl (2.5-4.0); Magnesium 2.1 mg/dl (1.7-2.4); Phosphorus 3.1 mg/dl (2.5-4.9); Potassium 4.7 mmol/L (3.5-5.1)
--- NOTE | 2023-05-28 07:50 | CT Scan Report ---
HEAD CT NONCONTRAST CT DOSE: 859.95 mGy.cm HISTORY: Follow-up subdural hematoma TECHNIQUE: Multiaxial CT images of the head were performed without the use of intravenous contrast. A utomated exposure control was utilized for this study. A dose lowering technique was utilized adheri ng to the principles of ALARA. Comparison: Head CT 05/27/2023. Findings: Small retention cyst within the right sphenoid sinus. The remaining para nasal sinuses and mastoid air cells are clear. The calvarium and skull base are intact. Motion artifact results in subo ptimal evaluation. No change in the small right-sided subdural hematoma best seen on image 19. This measures up to 3 mm in thickness. Old infarct within the left high convexity with ex vacuo dilatation of the left lateral ventricle, unchanged. Mild atrophy and microvascular ischemic changes are again noted. No significan t midline shift. No acute infarcts identified. Hypodensity within the thalami remain unchanged. There fore, this is likely chronic. Impression: 1. No significant change in the small right-sided subdural hematoma. 2. Additional chronic findings as described above. ACT 112: Negative or not required by law. Electronically signed by: Eliezer Sinha M.D. 05/28/2023 7:48 AM
[2023-05-28] MEDS: SODIUM CHLORIDE 0.9% 1,000 ML IV SCH (09:21)
--- NOTE | 2023-05-28 12:06 | Hospitalist Progress Note ---
Date of Service May 28, 2023 Assessment & Plan (1) Unresponsive episode: Plan: She appears to have suffered a ischemic CVA causing her to be unresponsive. This does not fit the clinical course of syncope related to UTI. Very unlikely that small subdural hemorrhage seen on admission head CT scan has anything to do with current clinical presentation. DNR has been established. Family members are in attendance. Brain MRI scan is pending. (2) SDH (subdural hematoma): Plan: Very small right subdural hemorrhage seen on admission head CT scan. Highly unlikely that this is causing the current presentation. 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 Labetalol 10mg q1h PRN for sBP > 180, dBP > 120 (5) GERD without esophagitis: Plan: Switched usual oral omeprazole to pantoprazole 40mg IV daily (6) Elevated troponin: Plan: Without acute coronary syndrome. (7) Alzheimer's dementia: Plan: At baseline. Supportive care Plan To be determined Admission and Anticipated Discharge Date Admission Date: May 27, 2023 Subjective The patient is completely unresponsive and appears to have suffered a massive ischemic CVA. The very small subdural hemorrhage seen on admission head CT scans appears to be of no clinical consequence at this time. Brain MRI scan is pending. She has no response to a sternal rub whatsoever. Family is in attendance. DNR status has been established. Brain MRI scan ordered and pending. Continue IV fluids for now. She was just discharged a day or 2 ago from the hospital to [facility]. Review of Systems 2 Review of Systems: The patient is unresponsive and unable to answer any questions regarding review of systems Physical Exam 2 Physical Exam: General-unresponsive. No fever HEENT-head atraumatic and normocephalic, pupils equal and reactive to light Neck-no lymphadenopathy or thyromegaly, trachea midline Chest-scattered bilateral rhonchi from retained secretions. No wheezing. i Cardiac-regular rate and rhythm, normal S1 and S2 Abdomen-normal bowel sounds, no hepatosplenomegaly Extremities-no cyanosis, clubbing, or edema Neuro-unresponsive. Unable to assess. Chronically however she has right hemiparesis from old CVA and right foot drop Psych-unresponsive. Cannot assess Results & Data Results & Data Vital Signs (Past 12 Hours) Vital Signs Temp Pulse Pulse Resp BP BP Pulse Ox 05/28/23 11:32 37.7 C H 82 24 167/78 H 99 05/28/23 09:30 76 157/80 H 05/28/23 09:15 85 189/81 H 05/28/23 08:07 36.8 C 88 21 189/81 H 97 05/28/23 07:29 86 18 99 05/28/23 05:19 86 24 179/92 H 100 05/28/23 04:42 84 36 H 179/94 H 100 05/28/23 03:53 79 171/86 H 05/28/23 03:34 90 180/102 H 05/28/23 03:00 36.6 C 88 26 H 190/102 H 100 05/28/23 02:05 86 24 93 05/28/23 00:35 178/86 H 05/28/23 00:17 88 182/92 H 05/28/23 00:04 36.7 C 28 H 182/92 H 95 O2 Del Method O2 Flow Rate 05/28/23 11:32 Nasal Cannula 2 05/28/23 09:30 05/28/23 09:15 05/28/23 08:07 Nasal Cannula 2 05/28/23 07:29 Nasal Cannula 2 05/28/23 05:19 Nasal Cannula 2 05/28/23 04:42 Nasal Cannula 2 05/28/23 03:53 05/28/23 03:34 05/28/23 03:00 Nasal Cannula 05/28/23 02:05 Nasal Cannula 2 05/28/23 00:35 05/28/23 00:17 05/28/23 00:04 Nasal Cannula 2 Laboratory Results 05/28/23 06:09 05/28/23 06:05 PG Care Time/CCT Total # of Minutes Spent Total Time Spent with Patient: Total time spent is greater than 50% in coordination of care (as documented) at patient's floor/unit and/or counseling patient: Coding Level of Care Code 88579 SUB INP/OBS CARE 3/50MIN Diagnoses Unresponsive episode R40.4 SDH (subdural hematoma) S06.5XAA CVA, old, hemiparesis I69.359 Hypertension I10 GERD without esophagitis K21.9 Elevated troponin R79.89 Alzheimer's dementia G30.9; F02.80
--- NOTE | 2023-05-28 12:34 | XCELERA ---
[id number]
[2023-05-28 13:11] LABS: A calco-baum cmplx NotReported Not Detected (NotDetected); Bact fragilis Not Reported Not Detected (NotDetected); Blood Culture Id Panel See PCR Comment (NotDetected); C auris Not Reported Not Detected (NotDetected); Calbicans Not Reported Not Detected (NotDetected); Candida glabrata Not Reported Not Detected (NotDetected); Candida krusei Not Reported Not Detected (NotDetected); Cneoformans/gatti Not Reported Not Detected (NotDetected); Cparapsilosis Not Reported Not Detected (NotDetected); E cloacae compx Not Reported Not Detected (NotDetected); Efaecalis Not Reported Not Detected (NotDetected); Efaecium Not Reported Not Detected (NotDetected); Enterobacterales Not Reported Not Detected (NotDetected); Escherichia coli Not Reported Not Detected (NotDetected); H influenzae Not Reported Not Detected (NotDetected); K aerogenes Not Reported Not Detected (NotDetected); Koxytoca Not Reported Not Detected (NotDetected); Kpneumoniae grp Not Reported Not Detected (NotDetected); Lmonocyt Not Reported Not Detected (NotDetected); N meningitidis Not Reported Not Detected (NotDetected); P aeruginosa Not Reported Not Detected (NotDetected); Proteus spp Not Reported Not Detected (NotDetected); Salmonella spp Not Reported Not Detected (NotDetected); Smarcescens Not Reported Not Detected (NotDetected); Staph lugdunensis Not Reported Not Detected (NotDetected); Staph spp. Not Reported DETECTED (NotDetected); Staphaureus Not Reported Not Detected (NotDetected); Staphepi Not Reported Not Detected (NotDetected); Stenmaltophilia Not Reported Not Detected (NotDetected); Strep agal(GrpB) Not Reported Not Detected (NotDetected); Strep pneum Not Reported Not Detected (NotDetected); Strep pyog (GrpA) Not Reported Not Detected (NotDetected); Strep spp Not Reported Not Detected (NotDetected)
[2023-05-28 13:17] LABS: Staphylococcus spp. DETECTED (NotDetected)
--- NOTE | 2023-05-28 13:40 | Electrocardiogram Report ---
Test Reason : Blood Pressure : / mmHG Vent. Rate : 104 BPM Atrial Rate : 104 BPM P-R Int : 148 ms QRS Dur : 080 ms QT Int : 350 ms P-R-T Axes : 063 046 013 degrees QTc Int : 460 ms Sinus tachycardia Marked ST abnormality, possible inferior subendocardial injury Abnormal ECG When compared with ECG of 26-OCT-2021 18:28, ST now depressed in Inferior leads ST now depressed in Anterolateral leads Confirmed by Vazquez Petty ([id number]) on 05/28/2023 1:39:52 PM Referred By: REFERRED SELF Confirmed By:Vazquez Petty
--- NOTE | 2023-05-28 13:42 | Electrocardiogram Report ---
Test Reason : Blood Pressure : / mmHG Vent. Rate : 085 BPM Atrial Rate : 085 BPM P-R Int : 146 ms QRS Dur : 076 ms QT Int : 394 ms P-R-T Axes : 017 029 005 degrees QTc Int : 468 ms Normal sinus rhythm Nonspecific ST abnormality Abnormal ECG When compared with ECG of 27-MAY-2023 16:45, (unconfirmed) No significant change was found Confirmed by Vazquez Petty ([id number]) on 05/28/2023 1:42:16 PM Referred By: REFERRED SELF Confirmed By:Vazquez Petty
--- NOTE | 2023-05-28 14:13 | Magnetic Resonance Report ---
Brain MRI WITHOUT CONTRAST HISTORY: unresponsive TECHNIQUE: Multiplanar multisequence MRI of the brain was performed without the use of contrast. COMPARISON STUDY: Head CT 05/28/2023. An MRI 06/03/2022. FINDINGS: Multiple scattered small foci of restricted diffusion within the bilateral cerebellar hemis pheres. Restricted diffusion seen within the right occipital lobe and bilateral medial temporal lobes . There is also restricted diffusion within the bilateral thalami and midbrain. Findings are consiste nt with multifocal posterior circulation and thalamic/midbrain acute infarcts. There is an acute smal l right subdural hematoma again noted measuring up to 4 mm in thickness. This is similar to the prior study. No midline shift. There is an old infarct within the left high convexity with associated ex v acuo dilatation of the left lateral ventricle. This remains unchanged. Atrophy and microvascular isch emic changes are again noted. Cytotoxic edema associated with the multifocal thalamic, midbrain, and posterior circulation infarcts. IMPRESSION: 1. Multifocal posterior circulation and thalamic/midbrain acute infarcts as described above. 2. Small right acute subdural hematoma, unchanged. 3. Additional chronic findings as described above. ACT 112: Negative or not required by law. Electronically signed by: Eliezer Sinha M.D. 05/28/2023 2:11 PM
[2023-05-28] MEDS ORDERED: VANCOMYCIN CONSULT ACTIVE PRN (15:02)
[2023-05-28] MEDS ORDERED: VANCOMYCIN HCL 1,000 MG in SODIUM CHLORIDE 0.9% 250 ML IV SCH (15:15)
[2023-05-28] MEDS: PANTOprazole 40 MG in SYRINGE 0 ML IV SCH (15:57)
[2023-05-28] MEDS: VANCOMYCIN HCL 1,500 MG in SODIUM CHLORIDE 0.9% 500 ML IV ONE (16:08)
--- NOTE | 2023-05-28 16:23 | Pharmacy Report ---
Pharmacy PK ABX Note - Date of Service May 28, 2023 - Assessment and Plan Assessment 82 year old F receiving vancomycin and ceftriaxone for treatment of bacteremia. 05/27 blood cultures (+) [facility] in 04/06, blood biofire (+) Staph spp (? contaminant). Urine culture (+) E.coli Day #1 of antimicrobial therapy. Plan Vancomycin * Loading dose: 1500 mg IV x 1 * Maintenance dose: 1000 mg IV every 24 hours * Regimen is predicted to achieve target AUC/JASON of 400-600 mg/L.hr * Will obtain a level in ~ 48h if vancomycin continued Pharmacy will continue to follow and will adjust dose/frequency as necessary. Thank you. Pharmacy has transitioned to AUC monitoring for vancomycin. AUC/JASON is the preferred PK/PD target and is associated with decreased risk of nephrotoxicity compared to traditional trough targets.
[2023-05-28] MEDS: SCOPOLAMINE 1 MG TDSY TD SCH (20:22)
[2023-05-29] MEDS: CHECK SCOPOLAMINE PATCH PLACEMENT SCH
[2023-05-29] MEDS: VANCOMYCIN HCL 1,000 MG in SODIUM CHLORIDE 0.9% 250 ML IV SCH (07:24)
[2023-05-29 08:33] LABS: Basophils # (auto) 0.05 K/uL (0.00-0.20); Basophils % (auto) 0.6 %; Eosinophils # (auto) 0.02 K/uL (0.00-0.50); Eosinophils % (auto) 0.2 %; Hematocrit (blood only) 36.3 % (37.0-47.0); Hemoglobin 11.5 g/dl (12.0-16.0); Immature Granulocytes # (auto) 0.03 K/uL (0.01-0.20); Immature Granulocytes % (auto) 0.3 %; Lymphocytes # (auto) 1.01 K/uL (1.20-3.40); Lymphocytes % (auto) 11.1 %; Mean Corpuscular Hemoglobin 29.3 pg (25.0-34.0); Mean Corpuscular Hgb Conc 31.7 g/dL (32.0-36.0); Mean Corpuscular Volume 92.4 fL (80.0-100.0); Mean Platelet Volume 10.1 fL (9.4-12.4); Monocytes # (auto) 0.73 K/uL (0.11-0.59); Neutrophils # (auto) 7.23 K/uL (1.40-6.50); Neutrophils % (auto) 79.8 %; Platelet Count 162 K/uL (130-400); RDW Coefficient of Variation 14.3 % (11.5-14.5); RDW Standard Deviation 48.6 fL (36.4-46.3); Red Blood Count 3.93 M/uL (4.20-5.40); White Blood Count 9.07 K/ul (4.8-10.8)
[2023-05-29 08:43] LABS: Calcium 8.6 mg/dl (8.6-10.3); Creatinine Clr Calc Pharmacy 45.2 ml/min; Est GFR (Non-African American) 60.4 ml/min; Potassium 4.3 mmol/L (3.5-5.1)
--- NOTE | 2023-05-29 10:40 | Electroencephalogram ---
EEG Procedure Note Date of Service May 29, 2023 Start / End Times Start Time: 8:12 AM End Time: 8:32 AM Referring Physician Kari History Right frontal subdural, reduced consciousness, evaluate for seizures Home Medication List Medication Instructions Recorded Confirmed Type coenzyme Q10 100 mg capsule 100 mg PO DAILY 11/21/18 05/27/23 History cranberry extract 500 mg capsule 500 mg PO DAILY 11/21/18 05/27/23 History (Cranberry Concentrate) cyanocobalamin (vitamin B-12) 1,000 mcg PO DAILY 11/21/18 05/27/23 History 1,000 mcg tablet docusate sodium 100 mg capsule 100 mg PO DAILY 11/21/18 05/27/23 History loratadine 10 mg tablet 10 mg PO DAILY 11/21/18 05/27/23 History nitroglycerin 0.4 mg sublingual 0.4 mg sublingual Q5M PRN Chest 11/21/18 05/27/23 History tablet Pain #15 tabs cholecalciferol (vitamin D3) 25 1,000 unit PO DAILY #90 caps 04/13/22 05/27/23 Rx mcg (1,000 unit) capsule albuterol sulfate 90 mcg/actuation 2 puff inhalation Q4H PRN 05/30/22 05/27/23 Rx aerosol inhaler Shortness Of Breath Or Wheezing #3 Inhalers omeprazole 40 mg capsule,delayed 40 mg PO DAILY #90 caps 09/27/22 05/27/23 Rx release famotidine 40 mg tablet 40 mg PO DAILY #90 tabs 01/16/23 05/27/23 Rx memantine 10 mg tablet 10 mg PO BID #180 tabs 01/17/23 05/27/23 Rx isosorbide mononitrate 30 mg 30 mg PO DAILY 05/21/23 05/27/23 History tablet,extended release 24 hr verapamil 240 mg tablet,extended 240 mg PO HS 05/21/23 05/27/23 History release clonidine HCl 0.1 mg tablet 0.1 mg PO TID #0 tabs 05/26/23 05/27/23 Rx acetaminophen 325 mg tablet 650 mg PO Q4H PRN PAIN/FEVER>=100 05/27/23 05/27/23 History (Tylenol) aspirin 81 mg chewable tablet 81 mg PO DAILY 02/24/24 02/24/24 History atorvastatin 10 mg tablet 10 mg PO Q OTHER DAY 05/27/23 05/27/23 History venlafaxine 150 mg 150 mg PO QPM 05/27/23 05/27/23 History capsule,extended release 24 hr (Effexor XR) Inpatient Medication List Ceftriaxone Sodium 2,000 mg/ (Dextrose) 50 mls @ 100 mls/hr IV Q24H SUBHA; Protocol Stop: 05/29/23 17:59 Last Infusion: 05/28/23 20:35 Dose: Infused Documented By: Admin: 05/28/23 20:01 Dose: 100 mls/hr Documented By: Infusion: 05/27/23 19:24 Dose: Infused Documented By: ASM(2) Admin: 05/27/23 18:52 Dose: 100 mls/hr Documented By: ZHANNA Pantoprazole Sodium 40 mg/ (Syringe) 10 mls @ 5 mls/min IV DAILY@1100 SUBHA Stop: 06/27/23 10:59 Last Admin: 05/28/23 15:57 Dose: 5 mls/min Documented By: RUSTAM Sodium Chloride (Nss) 1,000 mls @ 80 mls/hr IV .[id number] [facility] Stop: 06/27/23 08:14 Last Admin: 05/28/23 23:14 Dose: 80 mls/hr Documented By: Infusion: 05/28/23 21:51 Dose: Infused Documented By: Admin: 05/28/23 09:21 Dose: 80 mls/hr Documented By: RUSTAM Vancomycin HCl 1,000 mg/ (Sodium Chloride) 270 mls @ 200 mls/hr IV Q24H [facility] Stop: 06/12/23 05:59 Last Infusion: 05/29/23 08:45 Dose: Infused Documented By: Admin: 05/29/23 07:24 Dose: 200 mls/hr Documented By: AYUSH Labetalol HCl (Labetalol Hcl Iv 5 Mg/Ml 20ml) 10 mg IV Q15M PRN PRN Reason: SBP above 180 or MAP above 130 Stop: 06/27/23 01:29 Last Admin: 05/28/23 23:10 Dose: 10 mg Documented By: NAYANA Co-signed By: NIA Admin: 05/28/23 20:00 Dose: 10 mg Documented By: NAYANA Co-signed By: AURA Admin: 05/28/23 09:15 Dose: 10 mg Documented By: EP Co-signed By: MTP Admin: 05/28/23 03:34 Dose: 10 mg Documented By: NAYANA Co-signed By: NIA Miscellaneous (Check Scopolamine Patch Placement) 1 each N/A QS SUBHA Stop: 06/28/23 00:00 Last Admin: 05/29/23 07:25 Dose: 1 each Documented By: Admin: 05/29/23 00:00 Dose: 1 each Documented By: ASM Scopolamine (Scopolamine 1 Mg Tdsy) 1 mg TD Q72H SUBHA Stop: 06/27/23 18:59 Last Admin: 05/28/23 20:22 Dose: 1 mg Documented By: ASM Discontinued Medications Parenteral Electrolytes (Plasma-Lyte A Ph 7.4) 1,000 mls @ 100 mls/hr IV .Q10H SUBHA Stop: 05/28/23 14:59 Last Infusion: 05/28/23 09:21 Dose: Infused Documented By: Admin: 05/28/23 05:10 Dose: 100 mls/hr Documented By: Infusion: 05/28/23 05:10 Dose: Infused Documented By: Admin: 05/27/23 19:24 Dose: 100 mls/hr Documented By: ASM(2) Vancomycin HCl 1,500 mg/ (Sodium Chloride) 530 mls @ 200 mls/hr IV ONE ONE Stop: 05/28/23 17:53 Last Infusion: 05/28/23 20:31 Dose: Infused Documented By: Admin: 05/28/23 16:08 Dose: 200 mls/hr Documented By: RUSTAM Ioversol (Optiray 320 125ml) 117 ml IV ONCE ONE Stop: 05/27/23 16:29 Last Admin: 05/27/23 16:28 Dose: 117 ml Documented By: JENNY Labetalol HCl (Labetalol Hcl Iv 5 Mg/Ml 20ml) 20 mg IV NOW STA Stop: 05/27/23 16:56 Last Admin: 05/27/23 17:00 Dose: 10 mg [place] [facility] [place]signed By: APURVA Labetalol HCl (Labetalol Hcl Iv 5 Mg/Ml 20ml) 10 mg IV NOW STA Stop: 05/27/23 17:59 Last Admin: 05/27/23 18:03 Dose: 10 mg Documented By: ZHANNA Co-signed By: APURVA Labetalol HCl (Labetalol Hcl Iv 5 Mg/Ml 20ml) 10 mg IV NOW STA Stop: 05/27/23 19:55 Last Admin: 05/27/23 19:57 Dose: 10 mg Documented By: NAYANA(2) Co-signed By: JACK Labetalol HCl (Labetalol Hcl Iv 5 Mg/Ml 20ml) 10 mg IV NOW STA Stop: 05/27/23 21:25 Last Admin: 05/27/23 21:32 Dose: 10 mg Documented By: NAYANA(2) Co-signed By: ALE Labetalol HCl (Labetalol Hcl Iv 5 Mg/Ml 20ml) 10 mg IV Q2H PRN PRN Reason: sBP > 180, dBP > 120 Stop: 06/26/23 23:29 Last Admin: 05/28/23 00:17 Dose: 10 mg Documented By: NAYANA Co-signed By: CHRISTINA Naloxone HCl (Naloxone Hcl 0.4 Mg/1 Ml Vial/Carp) Confirm Administered Dose 0.4 mg .ROUTE .STK-MED ONE Stop: 05/27/23 16:35 Last Admin: 05/27/23 16:35 Dose: 0.4 mg Documented By: APURVA Ondansetron HCl (Ondansetron Inj 2 Mg/Ml 2 Ml Vial) 4 mg IV NOW STA Stop: 05/27/23 16:14 Last Admin: 05/27/23 16:15 Dose: 4 mg Documented By: APURVA Ondansetron HCl (Ondansetron Inj 2 Mg/Ml 2 Ml Vial) Confirm Administered Dose 4 mg .ROUTE .STK-MED ONE Stop: 05/27/23 16:15 Last Admin: 05/27/23 16:42 Dose: Not Given Documented By: APURVA Description This is a 21 electrode EEG with a single channel dedicated to limited EKG. The electrodes were placed in accordance with the International 10-20 system. There is fairly continuous generalized for 4.5 Hz slowing throughout the recording. There are some admixed frontal delta activity as well. The amplitudes are slightly reduced over the right frontal region. Photic stimulation is unremarkable. There are no epileptiform abnormalities. Interpretation Abnormal awake/drowsy EEG with evidence of a nonspecific encephalopathy. There are no epileptiform abnormalities. [facility] EEG Procedure Codes Indication for Procedure (1) SDH (subdural hematoma): (2) Unresponsive episode: Neurology Neurology: 67650 EEG include record awake & drowsy
--- NOTE | 2023-05-29 12:41 | Hospitalist Progress Note ---
Date of Service May 29, 2023 Assessment & Plan (1) Unresponsive episode: Plan: Brain MRI confirms bilateral and midbrain embolic ischemic CVA with evidence of cytotoxic edema. There is very little hope that she will regain consciousness. Family members are aware and present and have opted for comfort care measures at this time with the understanding that this can be changed if she does regain consciousness. EEG was obtained this morning, May 29, and results are pending. This was ordered by the admitting physician (2) SDH (subdural hematoma): Plan: Very small right subdural hemorrhage seen on admission head CT scan. Highly unlikely that this is contributing to the current presentation. 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 No further medical management (5) GERD without esophagitis: Plan: Comfort care measures only. No further medical management (6) Elevated troponin: Plan: Without acute coronary syndrome. (7) Alzheimer's dementia: Plan: At baseline. Supportive care Plan The patient is expected to within the next few days during this hospitalization. Admission and Anticipated Discharge Date Admission Date: May 27, 2023 Subjective The patient has not regained consciousness and is unlikely to regain consciousness. Family members are present and have opted for comfort care measures. They understand that this can be changed if she regains consciousness. Review of Systems 2 Review of Systems: The patient is unresponsive and unable to answer any questions regarding review of systems Physical Exam 2 Physical Exam: General-unresponsive. No fever HEENT-head atraumatic and normocephalic, pupils equal and reactive to light Neck-no lymphadenopathy or thyromegaly, trachea midline Chest-scattered bilateral rhonchi from retained secretions. No wheezing. i Cardiac-regular rate and rhythm, normal S1 and S2 Abdomen-normal bowel sounds, no hepatosplenomegaly Extremities-no cyanosis, clubbing, or edema Neuro-unresponsive. Unable to assess. Chronically however she has right hemiparesis from old CVA and right foot drop Psych-unresponsive. Cannot assess Results & Data Results & Data Vital Signs (Past 12 Hours) Vital Signs Temp Pulse Pulse Resp BP Pulse Ox O2 Del Method 05/29/23 08:00 Nasal Cannula 05/29/23 07:53 37.4 C 87 17 179/98 H 98 Nasal Cannula 05/29/23 07:00 86 05/29/23 03:11 36.7 C 84 22 172/81 H 99 Nasal Cannula O2 Flow Rate 05/29/23 08:00 2 05/29/23 07:53 2 05/29/23 07:00 05/29/23 03:11 2 Laboratory Results 05/29/23 07:39 05/29/23 07:39 PG Care Time/CCT Total # of Minutes Spent Total Time Spent with Patient: Total time spent is greater than 50% in coordination of care (as documented) at patient's floor/unit and/or counseling patient: Coding Level of Care Code 91746 SUB INP/OBS CARE 3/50MIN Diagnoses Unresponsive episode R40.4 SDH (subdural hematoma) S06.5XAA CVA, old, hemiparesis I69.359 Hypertension I10 GERD without esophagitis K21.9 Elevated troponin R79.89 Alzheimer's dementia G30.9; F02.80
--- NOTE | 2023-05-29 13:43 | Electrocardiogram Report ---
Test Reason : Blood Pressure : / mmHG Vent. Rate : 088 BPM Atrial Rate : 088 BPM P-R Int : 136 ms QRS Dur : 076 ms QT Int : 404 ms P-R-T Axes : 050 025 128 degrees QTc Int : 488 ms Normal sinus rhythm Abnormal ECG When compared with ECG of 28-MAY-2023 05:17, T wave inversion no longer evident in Inferior leads Confirmed by Vazquez Petty ([id number]) on 05/29/2023 1:42:46 PM Referred By: REFERRED SELF Confirmed By:Vazquez Petty
[2023-05-29] MEDS: MoRPHine SULFATE 2 MG/ML CARP IV PRN (19:56)
[2023-05-30] MEDS ORDERED: ONDANSETRON 4 MG OD TAB SL PRN (13:38)
[2023-05-30] MEDS ORDERED: GLYCOPYRROLATE 0.2 MG/ML VIAL IV PRN (13:38)
[2023-05-30] MEDS ORDERED: ONDANSETRON INJ 2 MG/ML 2 ML VIAL IV PRN (13:38)
[2023-05-30] MEDS ORDERED: LORazepam 0.5 MG TAB PO PRN (13:38)
[2023-05-30] MEDS ORDERED: MoRPHine SULFATE 10 MG/0.5 ML UDP PO PRN (13:38)
[2023-05-30] MEDS ORDERED: LORazepam 0.5 MG in SYRINGE 0.25 ML IV PRN (13:38)
--- NOTE | 2023-05-30 13:46 | Hospitalist Progress Note ---
Date of Service May 30, 2023 Assessment & Plan (1) Comfort measures only status: Plan: Remains obtunded x 2 days after multiple bilateral strokes Transition completely to HOME HEALTH AIDE DOwngrade off tele Add IV lorazepam prn anxiety/agitation, add po Roxanol, add RObinul prn secretions, IV ativan prn seizures Pt likely expected to pass away within 2-3 days (2) Unresponsive episode: Plan: Brain MRI confirms bilateral and midbrain embolic ischemic CVA with evidence of cytotoxic edema. (3) SDH (subdural hematoma): Plan: Very small right subdural hemorrhage seen on admission head CT scan. Highly unlikely that this is contributing to the current presentation. (4) CVA, old, hemiparesis: Plan: Residual right sided hemiparesis and right foot drop dc home meds (5) Hypertension: Plan: Comfort care measures only. No further medical management (6) GERD without esophagitis: Plan: Comfort care measures only. No further medical management (7) Elevated troponin: Plan: Without acute coronary syndrome. (8) Alzheimer's dementia: Plan The patient is expected to within the next few days during this hospitalization. discussed care with and son at bedside Admission and Anticipated Discharge Date Admission Date: May 27, 2023 Subjective Pt obtunded, tachypneic. and son at bedside Physical Exam Constitutional: + lethargic Respiratory: + tachypneic PG Care Time/CCT Total # of Minutes Spent Total Time Spent with Patient: Total time spent is greater than 50% in coordination of care (as documented) at patient's floor/unit and/or counseling patient: Coding Level of Care Code 35017 SUB INP/OBS CARE 1/25MIN Diagnoses Comfort measures only status Z51.5 Unresponsive episode R40.4 SDH (subdural hematoma) S06.5XAA CVA, old, hemiparesis I69.359 Hypertension I10 GERD without esophagitis K21.9 Elevated troponin R79.89 Alzheimer's dementia G30.9; F02.80
[2023-05-30] MEDS: LORazepam 0.5 MG in SYRINGE 0.25 ML IV PRN (17:12)
--- NOTE | 2023-05-30 21:21 | Death Pronouncement Note ---
Date of Service May 30, 2023 Pronouncement Note Admission Date Admission Date: May 27, 2023 Contributing Factors (1) Comfort measures only status: (2) Unresponsive episode: (3) SDH (subdural hematoma): (4) CVA, old, hemiparesis: (5) Hypertension: (6) GERD without esophagitis: (7) Elevated troponin: (8) Alzheimer's dementia: Summary Additional details: I was called to pronounce the of Sylvia Cifuentes ( 1940) by Peter Hale on 05/30/2023. Upon entering the room, patient was found to be in a terminal state. They were unresponsive to, and did not withdrawal from, verbal or tactile stimuli. They were unresponsive to corneal, pupillary, and oculocephalic reflexes. On cardiopulmonary exam, they were found to be without detectable carotid pulses, and without spontaneous heart tones or respirations. Time of was pronounced by me on 05/30/23 at 2117. Attending physician was notified was notified. Next of kin was present in room. Signed: Alysia Durand DO Additional Data Attending physician: Tia Villanueva MD
--- NOTE | 2023-05-30 23:14 | Discharge Summary ---
Discharge Summary Date of Service May 30, 2023 Notes For Next Care Provider Medication Changes From Visit None Admission HPI Per Admitting Provider Sylvia Cifuentes is an 82-year-old female who presents to the ER in an unresponsive state. She was just discharged yesterday after a fall with chronic right foot drop from prior CVA - she was discharged to [facility] for further rehabilitation. Her reports she was her normal self in the morning but 15:15 after having a bowel movement she was at the bathroom sink washing her hands and suddenly felt like she was going to faint as she alerted her . She was sitting in her wheelchair and her head suddenly just went back and she became unresponsive. On discussion with the nurse at [facility] she reports only witness was the but shortly afterwards she was assessed in the bathroom and was completely unresponsive therefore EMS were called. 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 (3) SDH (subdural hematoma): Very small right subdural hemorrhage seen on admission head CT scan. Highly unlikely that this is contributing to the current presentation. (4) CVA, old, hemiparesis: Residual right sided hemiparesis and right foot drop (5) Hypertension: Comfort care measures only. No further medical management (6) GERD without esophagitis: Comfort care measures only. No further medical management (7) Elevated troponin: Without acute coronary syndrome. (8) Alzheimer's dementia: noted Plan Updated Medication List Medication Instructions Recorded Confirmed Type coenzyme Q10 100 mg capsule 100 mg PO DAILY 11/21/18 05/27/23 History cranberry extract 500 mg capsule 500 mg PO DAILY 11/21/18 05/27/23 History (Cranberry Concentrate) cyanocobalamin (vitamin B-12) 1,000 mcg PO DAILY 11/21/18 05/27/23 History 1,000 mcg tablet docusate sodium 100 mg capsule 100 mg PO DAILY 11/21/18 05/27/23 History loratadine 10 mg tablet 10 mg PO DAILY 11/21/18 05/27/23 History nitroglycerin 0.4 mg sublingual 0.4 mg sublingual Q5M PRN Chest 11/21/18 05/27/23 History tablet Pain #15 tabs cholecalciferol (vitamin D3) 25 1,000 unit PO DAILY #90 caps 04/13/22 05/27/23 Rx mcg (1,000 unit) capsule albuterol sulfate 90 mcg/actuation 2 puff inhalation Q4H PRN 05/30/22 05/27/23 Rx aerosol inhaler Shortness Of Breath Or Wheezing #3 Inhalers omeprazole 40 mg capsule,delayed 40 mg PO DAILY #90 caps 09/27/22 05/27/23 Rx release famotidine 40 mg tablet 40 mg PO DAILY #90 tabs 01/16/23 05/27/23 Rx memantine 10 mg tablet 10 mg PO BID #180 tabs 01/17/23 05/27/23 Rx isosorbide mononitrate 30 mg 30 mg PO DAILY 05/21/23 05/27/23 History tablet,extended release 24 hr verapamil 240 mg tablet,extended 240 mg PO HS 05/21/23 05/27/23 History release clonidine HCl 0.1 mg tablet 0.1 mg PO TID #0 tabs 05/26/23 05/27/23 Rx acetaminophen 325 mg tablet 650 mg PO Q4H PRN PAIN/FEVER>=100 05/27/23 05/27/23 History (Tylenol) aspirin 81 mg chewable tablet 81 mg PO DAILY 05/27/23 05/27/23 History atorvastatin 10 mg tablet 10 mg PO Q OTHER DAY 05/27/23 05/27/23 History venlafaxine 150 mg 150 mg PO QPM 05/27/23 05/27/23 History capsule,extended release 24 hr (Effexor XR) Hospital Stay Data Consultations 05/27/23 16:49 ED Decision to Admit Stat Diagnostic Imagining Performed 05/27/23 16:09 CT angio head w con Stat CT angio neck with con Stat CT head/brain wo con Stat 05/27/23 19:47 CT for pulmonary embolism PE [CT angio chest PE protocol] Stat CT head/brain wo con Stat 05/28/23 07:00 CT head/brain wo con Urgent 05/28/23 11:34 MRI Brain [MR brain wo con] Urgent Total Time Total Time Spent Total Time Spent (In Minutes): 20 Coding Level of Care Code 40794 IN/OBS DISCH 30 MIN/LESS Diagnoses Comfort measures only status Z51.5 Unresponsive episode R40.4 SDH (subdural hematoma) S06.5XAA CVA, old, hemiparesis I69.359 Hypertension I10 GERD without esophagitis K21.9 Elevated troponin R79.89 Alzheimer's dementia G30.9; F02.80
== END 2023-05-30 22:45 | disposition expired | DRG 64 ==
LOC: ED 16:06 → EDINP 18:24 → SUATTDRO 18:24 → EDINP 22:03 → 2S 23:10 → 3E 05-30 17:43
DX: Z79.82 Long term (current) use of aspirin; K21.9 Gastro-esophageal reflux disease without esophagitis; G30.9 Alzheimer's disease, unspecified; I62.00 Nontraumatic subdural hemorrhage, unspecified; G93.6 Cerebral edema; N39.0 Urinary tract infection, site not specified; Z88.8 Allergy status to other drugs, medicaments and biological substances; I69.359 Hemiplegia and hemiparesis following cerebral infarction affecting unspecified side; Z66 Do not resuscitate; Z79.899 Other long term (current) drug therapy; Z88.5 Allergy status to narcotic agent; I10 Essential (primary) hypertension; I63.9 Cerebral infarction, unspecified; Z51.5 Encounter for palliative care